=== PATIENT | male | born 1955 | race Caucasian/White ===

== ENCOUNTER → 2020-11-08 | Outpatient (CLI) | payer BC ==
--- NOTE | 2020-11-08 14:49 | CT ---
EXAMINATION TYPE: CT angio abd aorta w/Runoff DATE OF EXAM: 11/08/2020 COMPARISON: None. HISTORY: Thoracic aortic aneurysm, without rupture. History of peripheral arterial disease. Pain. CT DLP: 1663.4 mGycm, Automated Exposure Control for Dose Reduction was Utilized. CONTRAST: CT scan of the abdomen and pelvis with lower extremity runoff is performed without oral and without a nd with IV Contrast, patient injected with 125 mL of Isovue 370. Aneurysm protocol with 3-D reconstru ction images created on an independent workstation and reviewed. FINDINGS: Vascular: Patent celiac artery and SMA. Patent bilateral single renal arteries. Patent MARYANNE. Mild calc ified plaque in the abdominal aorta extends into common iliac artery branches. No significant stenosi s. No aneurysm. Satisfactory branching into internal and external iliac arteries. No significant plaq ue or stenosis in the external iliac arteries bilaterally. Mild calcified plaque left common femoral artery. Satisfactory branching. Superficial femoral arteries bilaterally show no significant plaque o r stenosis. Popliteal arteries bilaterally show mild calcified plaque near and above the knee joint, proximal to mid segment. No significant stenosis bilaterally. Satisfactory bifurcation and subsequent trifurcation, diminished contrast bolus suspected near bifurcation and trifurcation. Evaluation dist al to the proximal tibia and fibula bilaterally is suboptimal. There is a mild to moderate plaque mid to distal legs with satisfactory three-vessel flow mid leg level and two-vessel flow distal leg leve l. There is good two-vessel flow through the ankle joints. No linear hypodensity to suggest dissection in aorta or iliac branch vessels. LUNG BASES: Cardiomegaly is partially imaged. There is calcification at the level of the mitral valve .. LIVER/GB: There is 1.1 cm round dependent hyperdense gallstone with central round calcification. PANCREAS: No significant abnormality is seen. SPLEEN: No significant abnormality is seen. ADRENALS: No significant abnormality is seen. KIDNEYS: There is large exophytic 8.0 cm thin-walled cyst from the lateral aspect of the upper pole r ight kidney. Signal 2 mm nonobstructing calculus upper pole level left kidney coronal image 56 series 9. No hydronephrosis seen bilaterally. BOWEL: Suboptimal evaluation of bowel without enteric contrast. Diverticula in the left and sigmoid c olon. No CT evidence for acute diverticulitis. No suspicious small or large bowel dilatation. Mild to moderate amount of fecal material in the right colon. Normal-appearing appendix from cecum. PROSTATE/SEMINAL VESICLES: Mildly enlarged prostate consistent with BPH. Correlate clinically. LYMPH NODES: No greater than 1cm abdominal or pelvic lymph nodes are appreciated. OSSEOUS STRUCTURES: Moderate to severe disc space narrowing L4-L5 level.. OTHER: No significant additional abnormality is seen. Extremities: No significant abnormality is seen. IMPRESSION: No significant focal plaque or stenosis in the aortoiliac system bilaterally or lower ext remity runoff through the hindfoot structures.
== END | disposition home or self-care (01) ==
LOC: RADCTMAIN 11:06
PROVIDERS: ATTEND Internal Medicine Interventional Cardiology
DX: I71.2 Thoracic aortic aneurysm, without rupture (principal)
CPT/HCPCS: 75635; Q9967

== ENCOUNTER 2021-03-29 21:22 | Emergency (ER) | payer BC ==
[2021-03-29 21:43] VITALS: BP 162/75; PULSE 64; RESP 20; TEMP 98.7
--- NOTE | 2021-03-29 22:03 | ED ---
Chest Pain HPI - General Chief Complaint: Chest Pain Stated Complaint: chest pain/pressure,hand tingling Time Seen by Provider: 03/29/21 21:44 Source: patient, RN notes reviewed, old records reviewed Mode of arrival: wheelchair Limitations: no limitations - History of Present Illness Initial Comments: This is a 65-year-old male DF for evaluation patient presents today for evaluation regards to multiple complaints chest pain and dizziness dizziness for a month chest pain today. No current chest on arrival. Concerning aspect of the pain was effectively numbness and tingling of both of his arms. That is also since resolved. Patient is no prior history does have history of high blood pressure. No recent travel history or sick contacts. Patient is in no acute distress and again is asymptomatic MD Complaint: chest pain -: hour(s) Onset: during rest, during exertion Pain Location: substernal, left chest Pain Radiation: LUE Severity: moderate Severity scale (1-10): 3 Quality: tightness, heaviness Consistency: constant Improves With: nothing Worsens With: nothing Context: recent illness Anginal Symptoms: diaphoresis, sense of impending doom Other Symptoms: palpitations Treatments Prior to Arrival: none - Related Data Home Medications Medication Instructions Recorded Confirmed Flecainide [Tambocor] 50 mg PO Q12HR 03/29/21 03/29/21 Metoprolol Succinate [Toprol XL] 25 mg PO DAILY 03/29/21 03/29/21 Warfarin [Coumadin] 5 mg PO HS 03/29/21 03/29/21 Allergies Allergy/AdvReac Type Severity Reaction Status Date / Time No Known Allergies Allergy Verified 03/29/21 21:56 Review of Systems ROS Statement: Those systems with pertinent positive or pertinent negative responses have been documented in the HPI. ROS Other: All systems not noted in ROS Statement are negative. EKG Findings - EKG Comments: EKG Findings:: EKG shows sinus rhythm 65 NH 252 QRS 132 QTc 440 Past Medical History Past Medical History: Hypertension History of Any Multi-Drug Resistant Organisms: None Reported Additional Past Surgical History / Comment(s): heart valve repair Past Psychological History: No Psychological Hx Reported Smoking Status: Never smoker Past Alcohol Use History: None Reported Past Drug Use History: None Reported General Exam Limitations: no limitations General appearance: alert, in no apparent distress Head exam: Present: atraumatic, normocephalic, normal inspection Eye exam: Present: normal appearance, PERRL, EOMI. Absent: scleral icterus, conjunctival injection, periorbital swelling ENT exam: Present: normal exam, mucous membranes moist Neck exam: Present: normal inspection. Absent: tenderness, meningismus, lymphadenopathy Respiratory exam: Present: normal lung sounds bilaterally. Absent: respiratory distress, wheezes, rales, rhonchi, stridor Cardiovascular Exam: Present: regular rate, normal rhythm, normal heart sounds. Absent: systolic murmur, diastolic murmur, rubs, gallop, clicks GI/Abdominal exam: Present: soft, normal bowel sounds. Absent: distended, tenderness, guarding, rebound, rigid Extremities exam: Present: normal inspection, full ROM, normal capillary refill. Absent: tenderness, pedal edema, joint swelling, calf tenderness Back exam: Present: normal inspection Neurological exam: Present: alert, oriented X3, CN II-XII intact Psychiatric exam: Present: normal affect, normal mood Skin exam: Present: warm, dry, intact, normal color. Absent: rash Course Vital Signs 03/29/21 21:39 Temperature 98.7 F Pulse Rate 64 Respiratory 20 Rate Blood Pressure 162/75 O2 Sat by Pulse 98 Oximetry - Reevaluation(s) Reevaluation #1: 03/29/21 22:14 Medical records reviewed Reevaluation #2: 03/29/21 22:14 Patient has no chest pain here in the ER Spoke with patient regarding findings questions answered Patient does not further evaluation by cardiology, prefers discharged home Chest Pain MDM - MDM 65 male to the ER for evaluation. Patient is today for evaluation regards to chest pain and ataxia. This point patient can be discharged home normal CT of brain and chest x-ray. Troponin EKG and negative Disposition Clinical Impression: Chest pain, Dizziness Disposition: HOME SELF-CARE Condition: Undetermined Instructions (If sedation given, give patient instructions): Chest Pain (ED) Is patient prescribed a controlled substance at d/c from ED?: No Referrals: Ermias Gentile MD [Primary Care Provider] - 1-2 days
[2021-03-29 22:52] LABS: Basophils # (A) 0.1 k/uL (0-0.2); Basophils % (A) 1 %; Eosinophils # (A) 0.3 k/uL (0-0.7); Eosinophils % (A) 3 %; HCT 50.7 % (39.0-53.0); HGB 16.7 gm/dL (13.0-17.5); Lymphocytes # (A) 1.4 k/uL (1.0-4.8); Lymphocytes % (A) 14 %; MCH 30.1 pg (25.0-35.0); MCV 91.2 fL (80.0-100.0); Mean Platelet Volume 8.4; Monocytes # (A) 0.7 k/uL (0-1.0); Monocytes % (A) 7 %; Neutrophils # (A) 7.3 k/uL (1.3-7.7); Neutrophils % (A) 73 %; Platelet Count 196 k/uL (150-450); RBC 5.56 m/uL (4.30-5.90); RDW 13.3 % (11.5-15.5)
--- NOTE | 2021-03-30 05:04 | XR ---
EXAMINATION TYPE: XR chest 2V DATE OF EXAM: 03/29/2021 COMPARISON: NONE HISTORY: Chest tightness TECHNIQUE: 2 views FINDINGS: There is no heart failure nor confluent pneumonic infiltrate. Costophrenic angles are clear . Thoracic aorta is atheromatous. There is no pleural effusion. Bony thorax is intact. There is small linear density left midlung field. IMPRESSION: Minimal scarring or subsegmental atelectasis. Normal heart.
--- NOTE | 2021-03-30 05:04 | CT ---
EXAMINATION TYPE: CT brain wo con DATE OF EXAM: 03/29/2021 COMPARISON: None HISTORY: dizziness CT DLP: 1188.4 mGycm Automated exposure control for dose reduction was used. There is no mass effect nor midline shift. There is no sign of intracranial hemorrhage. Calvarium is intact. Ventricles have normal size. The skull base is intact. IMPRESSION: Head CT scan appears normal for age.
[2021-03-30 05:16] LABS: INR 2.4 (<1.2); Partial Thromboplastin Time 31.6 sec (22.0-30.0); Prothrombin Time 23.7 sec (9.0-12.0)
[2021-03-30 05:17] LABS: ALT 21 U/L (4-49); AST 28 U/L (17-59); African American GFR (CKD) >90 (>60 ml/min/1.73 sqM); Albumin 4.1 g/dL (3.5-5.0); Alkaline Phosphatase 80 U/L (38-126); Anion Gap 8 mmol/L; Blood Urea Nitrogen 16 mg/dL (9-20); Calcium 9.2 mg/dL (8.4-10.2); Carbon Dioxide 24 mmol/L (22-30); Chloride 108 mmol/L (98-107); Glucose 110 mg/dL (74-99); Lipase 133 U/L (23-300); Magnesium 2.1 mg/dL (1.6-2.3); Non-African American GFR(CKD) 84 (>60 ml/min/1.73 sqM); Potassium 4.3 mmol/L (3.5-5.1); Sodium 140 mmol/L (137-145); Total Bilirubin 0.5 mg/dL (0.2-1.3)
== END 2021-03-30 00:35 | disposition home or self-care (01) ==
LOC: EC 21:22
DX: R07.89 Other chest pain (principal); R42 Dizziness and giddiness; I10 Essential (primary) hypertension; Z79.01 Long term (current) use of anticoagulants; Z79.899 Other long term (current) drug therapy
CPT/HCPCS: 36415; 70450; 71046; 80053; 83690; 83735; 83880; 84484; 85025; 85610; 85730; 93005; 99285

== ENCOUNTER 2021-04-11 17:05 | Emergency (ER) | payer BC ==
[2021-04-11 18:12] VITALS: TEMP 98.8
[2021-04-11 18:40] LABS: Basophils % (A) 0 %; Eosinophils # (A) 0.2 k/uL (0-0.7); Eosinophils % (A) 2 %; HCT 48.9 % (39.0-53.0); HGB 16.4 gm/dL (13.0-17.5); Lymphocytes # (A) 1.4 k/uL (1.0-4.8); Lymphocytes % (A) 17 %; MCH 30.5 pg (25.0-35.0); MCHC 33.6 g/dL (31.0-37.0); MCV 90.9 fL (80.0-100.0); Mean Platelet Volume 8.3; Monocytes # (A) 0.6 k/uL (0-1.0); Monocytes % (A) 7 %; Neutrophils # (A) 5.9 k/uL (1.3-7.7); Neutrophils % (A) 71 %; Platelet Count 180 k/uL (150-450); RBC 5.38 m/uL (4.30-5.90); RDW 13.2 % (11.5-15.5); WBC 8.4 k/uL (3.8-10.6)
[2021-04-11 18:49] LABS: Calcium 8.9 mg/dL (8.4-10.2); Potassium 4.2 mmol/L (3.5-5.1); Total Bilirubin 0.6 mg/dL (0.2-1.3); Total Protein 6.9 g/dL (6.3-8.2)
[2021-04-11 18:54] LABS: Appearance,Urine Clear (Clear); Bilirubin,Urine Negative (Negative); Blood,Urine Negative (Negative); Color,Urine Yellow; Glucose,Urine (UA) Negative (Negative); Ketones,Urine Negative (Negative); Leukocyte Esterase,Urine Negative (Negative); Nitrite,Urine Negative (Negative); Protein,Urine Negative (Negative); Specific Gravity,Urine 1.022 (1.001-1.035)
[2021-04-11 19:46] VITALS: BP 110/89; PULSE 68; RESP 20
--- NOTE | 2021-04-11 19:46 | ED ---
Abdominal Pain HPI - General Chief Complaint: Abdominal Pain Stated Complaint: Abd pain/right side Time Seen by Provider: 04/11/21 19:13 Source: patient Mode of arrival: ambulatory Limitations: no limitations - History of Present Illness Initial Comments: 65-year-old male presents to emergency department with a chief complaint of abdominal pain. States symptoms and on for the past several months. States he is very active and believes the pain may be related to that. States the pain is located in the lower abdominal region, particularly over the right side. States the pain is worse during the day but not in the morning or at night. States it is worse with hip flexion or whenever he is driving. He denies any infectious or obstructive urinary symptoms. Denies any fevers or chills. Denies taking medications for the symptoms. Denies hematuria, hematochezia melena. Has not seen his primary care physician. - Related Data Home Medications Medication Instructions Recorded Confirmed Flecainide [Tambocor] 50 mg PO Q12HR 03/29/21 03/29/21 Metoprolol Succinate [Toprol XL] 25 mg PO DAILY 03/29/21 03/29/21 Warfarin [Coumadin] 5 mg PO HS 03/29/21 03/29/21 Allergies Allergy/AdvReac Type Severity Reaction Status Date / Time No Known Allergies Allergy Verified 03/29/21 21:56 Review of Systems ROS Statement: Those systems with pertinent positive or pertinent negative responses have been documented in the HPI. ROS Other: All systems not noted in ROS Statement are negative. Past Medical History Past Medical History: Hypertension History of Any Multi-Drug Resistant Organisms: None Reported Additional Past Surgical History / Comment(s): heart valve repair Past Psychological History: No Psychological Hx Reported Smoking Status: Never smoker Past Alcohol Use History: None Reported Past Drug Use History: None Reported General Exam Limitations: no limitations General appearance: alert, in no apparent distress Head exam: Present: atraumatic, normocephalic, normal inspection Eye exam: Present: normal appearance, PERRL, EOMI Pupils: Present: normal accommodation ENT exam: Present: normal exam, normal oropharynx, mucous membranes moist Neck exam: Present: normal inspection, full ROM. Absent: tenderness, lymphad enopathy Respiratory exam: Present: normal lung sounds bilaterally. Absent: respiratory distress, wheezes, rales Cardiovascular Exam: Present: regular rate, normal rhythm, normal heart sounds. Absent: systolic murmur GI/Abdominal exam: Present: soft, tenderness (Lower abdominal tenderness. Low right lower quadrant tenderness. Negative McBurney point tenderness). Absent: distended, guarding, rebound, rigid Extremities exam: Present: normal inspection, full ROM. Absent: tenderness Back exam: Present: normal inspection, full ROM. Absent: tenderness Neurological exam: Present: alert, oriented X3 Psychiatric exam: Present: normal affect, normal mood Skin exam: Present: warm, dry, intact, normal color Course Vital Signs 04/11/21 04/11/21 18:08 19:43 Temperature 98.8 F Pulse Rate 58 L 68 Respiratory 18 20 Rate Blood Pressure 125/71 110/89 O2 Sat by Pulse 98 68 L Oximetry Medical Decision Making - Medical Decision Making 65-year-old male presents emergency Department with a chief complaint abdominal pain. On physical examination, lower abdominal tenderness, negative McBurney point tenderness. Suspect is musculoskeletal in nature. CBC CMP and UA unremarkable. However, considering the tenderness is on the right lower quadrant. I did offer CT imaging to patient, he declined. States he would rather follow with his primary care physician first. I given contact information for local GI specialist. Return parameters were thoroughly discussed the patient was understanding and agreeable. Case discussed with - Lab Data Result diagrams: 04/11/21 18:23 04/11/21 18:23 Lab Results 04/11/21 04/11/21 04/11/21 Range/Units 18:23 18:23 18:23 WBC 8.4 (3.8-10.6) k/uL RBC 5.38 (4.30-5.90) m/uL Hgb 16.4 (13.0-17.5) gm/dL Hct 48.9 (39.0-53.0) % MCV 90.9 (80.0-100.0) fL MCH 30.5 (25.0-35.0) pg MCHC 33.6 (31.0-37.0) g/dL RDW 13.2 (11.5-15.5) % Plt Count 180 (150-450) k/uL MPV 8.3 Neutrophils % 71 % Lymphocytes % 17 % Monocytes % 7 % Eosinophils % 2 % Basophils % 0 % Neutrophils # 5.9 (1.3-7.7) k/uL Lymphocytes # 1.4 (1.0-4.8) k/uL Monocytes # 0.6 (0-1.0) k/uL Eosinophils # 0.2 (0-0.7) k/uL Basophils # 0.0 (0-0.2) k/uL Sodium 139 (137-145) mmol/L Potassium 4.2 (3.5-5.1) mmol/L Chloride 106 (98-107) mmol/L Carbon Dioxide 24 (22-30) mmol/L Anion Gap 9 mmol/L BUN 17 (9-20) mg/dL Creatinine 1.04 (0.66-1.25) mg/dL Est GFR (CKD-EPI)AfAm 88 (>60 ml/min/1.73 sqM) Est GFR (CKD-EPI)NonAf 76 (>60 ml/min/1.73 sqM) Glucose 97 (74-99) mg/dL Calcium 8.9 (8.4-10.2) mg/dL Total Bilirubin 0.6 (0.2-1.3) mg/dL AST 29 (17-59) U/L ALT 21 (4-49) U/L Alkaline Phosphatase 76 (38-126) U/L Total Protein 6.9 (6.3-8.2) g/dL Albumin 4.0 (3.5-5.0) g/dL Amylase 57 (30-110) U/L Lipase 92 (23-300) U/L Urine Color Yellow Urine Appearance Clear (Clear) Urine pH 6.0 (5.0-8.0) Ur Specific [place] 1.022 (1.001-1.035) Urine Protein Negative (Negative) Urine Glucose (UA) Negative (Negative) Urine Ketones Negative (Negative) Urine Blood Negative (Negative) Urine Nitrite Negative (Negative) Urine Bilirubin Negative (Negative) Urine Urobilinogen 2.0 (<2.0) mg/dL Ur Leukocyte Esterase Negative (Negative) Disposition Clinical Impression: Abdominal wall strain Disposition: HOME SELF-CARE Condition: Stable Instructions (If sedation given, give patient instructions): Musculoskeletal Pain (ED) Additional Instructions: Follow with the primary care physician. Return to emergency department if symptoms worsen. Is patient prescribed a controlled substance at d/c from ED?: No Referrals: Ermias Gentile MD [Primary Care Provider] - 1-2 days Comfort Uriarte MD [STAFF PHYSICIAN] - 1-2 days Time of Disposition: 19:46
== END 2021-04-11 20:13 | disposition home or self-care (01) ==
LOC: EC 17:05
DX: R10.31 Right lower quadrant pain (principal); I10 Essential (primary) hypertension
CPT/HCPCS: 36415; 80053; 81003; 82150; 83690; 85025; 99284

== ENCOUNTER 2021-10-29 18:48 | Observation (INO) | payer BC, OTHER ==
--- NOTE | 2021-10-29 19:40 | ED ---
General Adult HPI - General Chief complaint: Shortness of Breath Stated complaint: both arms numb/flushed Time Seen by Provider: 10/29/21 19:25 Source: patient, RN notes reviewed, old records reviewed Mode of arrival: ambulatory Limitations: no limitations - History of Present Illness Initial comments: This is a well-appearing 65-year-old male who presents to the emergency room with complaints of bilateral hand tingling today that resolved spontaneously. He states couple hours later it happened again while he was watching TV and this time radiated up the left arm. He states he also felt dizzy and flushed like he was going to pass out and got cold and clammy. He denies any headaches, chest pain or difficulty breathing. He did have a heart valve repair in the past and sees a configuration specialist and is currently flecainide. -: days(s) (1) Location: chest Severity scale (1-10): 0 Consistency: now resolved - Related Data Home Medications Medication Instructions Recorded Confirmed Flecainide [Tambocor] 50 mg PO BID 03/29/21 10/29/21 Metoprolol Succinate [Toprol XL] 25 mg PO DAILY 03/29/21 10/29/21 Warfarin [Coumadin] 5 mg PO SUMOTUTHFRSA 03/29/21 10/29/21 Warfarin [Coumadin] 2.5 mg PO WE 10/29/21 10/29/21 Allergies Allergy/AdvReac Type Severity Reaction Status Date / Time No Known Allergies Allergy Verified 10/29/21 21:22 Review of Systems ROS Statement: Those systems with pertinent positive or pertinent negative responses have been documented in the HPI. ROS Other: All systems not noted in ROS Statement are negative. Past Medical History Past Medical History: Hypertension History of Any Multi-Drug Resistant Organisms: None Reported Additional Past Surgical History / Comment(s): heart valve repair Past Psychological History: No Psychological Hx Reported Smoking Status: Never smoker Past Alcohol Use History: None Reported Past Drug Use History: None Reported General Exam Limitations: no limitations General appearance: alert Head exam: Present: atraumatic Eye exam: Present: normal appearance. Absent: scleral icterus, periorbital swelling, periorbital tenderness Neck exam: Present: full ROM. Absent: tenderness, meningismus Respiratory exam: Present: normal lung sounds bilaterally. Absent: chest wall tenderness, accessory muscle use Cardiovascular Exam: Present: regular rate, normal rhythm, bradycardia (58), other (Occasional PVCs) GI/Abdominal exam: Present: soft. Absent: distended, tenderness Extremities exam: Present: normal capillary refill. Absent: pedal edema Neurological exam: Present: alert, oriented X3, CN II-XII intact Expanded Patient oriented to: Present: person, place, time Speech: Present: fluid speech Motor strength exam: RUE: 5, LUE: 5, RLE: 5, LLE: 5 Eye Response: (4) open spontaneously Motor Response: (6) obeys commands Verbal Response: (5) oriented Kelly Total: 15 Psychiatric exam: Present: normal affect, normal mood Skin exam: Present: warm, dry, normal color. Absent: cyanosis, diaphoretic, petechiae Course Vital Signs 10/29/21 10/29/21 10/29/21 18:50 20:15 23:32 Temperature 98.4 F Pulse Rate 60 56 L 62 Pulse Rate [ Pulse Oximetery ] Respiratory 20 16 16 Rate Blood Pressure 153/79 147/81 121/71 Blood Pressure [Right Arm] O2 Sat by Pulse 99 97 Oximetry 10/30/21 00:10 Temperature 98.1 F Pulse Rate Pulse Rate [ 61 Pulse Oximetery ] Respiratory 16 Rate Blood Pressure Blood Pressure 138/78 [Right Arm] O2 Sat by Pulse 99 Oximetry Medical Decision Making - Medical Decision Making CBC and electrolytes are unremarkable. Urine shows trace ketones. EKG shows sinus bradycardia with a rate of 58 and troponin is negative at 0.012. Patient does take flecainide. He states he has had a dozen episodes of flushing and irregular heart beats while waiting in the emergency room, each lasting only a couple of seconds. The nurses have been unable to capture any abnormalities on EKG during cardiac monitoring. Patient states that when the episodes occur he feels a warm flush in his chest tingling in his hands and feet but it resolves within seconds. Patient will be admitted to the hospital for symptomatic arrhythmia with cardiology on consult. Patient is agreeable to this plan of care. Case discussed with Dr. Oliveros and Dr Mary. - Lab Data Result diagrams: 10/29/21 19:47 10/29/21 19:47 Lab Results 10/29/21 10/29/21 10/29/21 Range/Units 19:47 19:47 19:47 WBC 8.4 (3.8-10.6) k/uL RBC 5.19 (4.30-5.90) m/uL Hgb 16.0 (13.0-17.5) gm/dL Hct 48.5 (39.0-53.0) % MCV 93.3 (80.0-100.0) fL MCH 30.9 (25.0-35.0) pg MCHC 33.1 (31.0-37.0) g/dL RDW 13.7 (11.5-15.5) % Plt Count 167 (150-450) k/uL MPV 8.3 Neutrophils % 82 % Lymphocytes % 11 % Monocytes % 4 % Eosinophils % 1 % Basophils % 0 % Neutrophils # 7.0 (1.3-7.7) k/uL Lymphocytes # 0.9 L (1.0-4.8) k/uL Monocytes # 0.3 (0-1.0) k/uL Eosinophils # 0.1 (0-0.7) k/uL Basophils # 0.0 (0-0.2) k/uL PT 22.7 H (9.0-12.0) sec INR 2.3 H (<1.2) APTT 31.1 H (22.0-30.0) sec Sodium (137-145) mmol/L Potassium (3.5-5.1) mmol/L Chloride (98-107) mmol/L Carbon Dioxide (22-30) mmol/L Anion Gap mmol/L BUN (9-20) mg/dL Creatinine (0.66-1.25) mg/dL Est GFR (CKD-EPI)AfAm (>60 ml/min/1.73 sqM) Est GFR (CKD-EPI)NonAf (>60 ml/min/1.73 sqM) Glucose (74-99) mg/dL Calcium (8.4-10.2) mg/dL Magnesium (1.6-2.3) mg/dL Total Bilirubin (0.2-1.3) mg/dL AST (17-59) U/L ALT (4-49) U/L Alkaline Phosphatase (38-126) U/L Troponin I (0.000-0.034) ng/mL Total Protein (6.3-8.2) g/dL Albumin (3.5-5.0) g/dL Urine Color Yellow Urine Appearance Clear (Clear) Urine pH 5.5 (5.0-8.0) Ur Specific [place] 1.026 (1.001-1.035) Urine Protein Negative (Negative) Urine Glucose (UA) Negative (Negative) Urine Ketones Trace H (Negative) Urine Blood Negative (Negative) Urine Nitrite Negative (Negative) Urine Bilirubin Negative (Negative) Urine Urobilinogen <2.0 (<2.0) mg/dL Ur Leukocyte Esterase Negative (Negative) 10/29/21 10/29/21 Range/Units 19:47 19:47 WBC (3.8-10.6) k/uL RBC (4.30-5.90) m/uL Hgb (13.0-17.5) gm/dL Hct (39.0-53.0) % MCV (80.0-100.0) fL MCH (25.0-35.0) pg MCHC (31.0-37.0) g/dL RDW (11.5-15.5) % Plt Count (150-450) k/uL MPV Neutrophils % % Lymphocytes % % Monocytes % % Eosinophils % % Basophils % % Neutrophils # (1.3-7.7) k/uL Lymphocytes # (1.0-4.8) k/uL Monocytes # (0-1.0) k/uL Eosinophils # (0-0.7) k/uL Basophils # (0-0.2) k/uL PT (9.0-12.0) sec INR (<1.2) APTT (22.0-30.0) sec Sodium 137 (137-145) mmol/L Potassium 4.4 (3.5-5.1) mmol/L Chloride 104 (98-107) mmol/L Carbon Dioxide 27 (22-30) mmol/L Anion Gap 6 mmol/L BUN 16 (9-20) mg/dL Creatinine 1.03 (0.66-1.25) mg/dL Est GFR (CKD-EPI)AfAm 89 (>60 ml/min/1.73 sqM) Est GFR (CKD-EPI)NonAf 77 (>60 ml/min/1.73 sqM) Glucose 111 H (74-99) mg/dL Calcium 8.6 (8.4-10.2) mg/dL Magnesium 2.1 (1.6-2.3) mg/dL Total Bilirubin 0.8 (0.2-1.3) mg/dL AST 28 (17-59) U/L ALT 24 (4-49) U/L Alkaline Phosphatase 80 (38-126) U/L Troponin I <0.012 (0.000-0.034) ng/mL Total Protein 6.9 (6.3-8.2) g/dL Albumin 3.8 (3.5-5.0) g/dL Urine Color Urine Appearance (Clear) Urine pH (5.0-8.0) Ur Specific [place] (1.001-1.035) Urine Protein (Negative) Urine Glucose (UA) (Negative) Urine Ketones (Negative) Urine Blood (Negative) Urine Nitrite (Negative) Urine Bilirubin (Negative) Urine Urobilinogen (<2.0) mg/dL Ur Leukocyte Esterase (Negative) Disposition Clinical Impression: Heart palpitations Disposition: ADMITTED IP TO THIS [facility] Decision Date: 10/29/21 Decision Time: 21:52
[2021-10-29 20:25] LABS: Basophils % (A) 0 %; Eosinophils # (A) 0.1 k/uL (0-0.7); Eosinophils % (A) 1 %; HCT 48.5 % (39.0-53.0); Lymphocytes # (A) 0.9 k/uL (1.0-4.8); Lymphocytes % (A) 11 %; MCH 30.9 pg (25.0-35.0); MCHC 33.1 g/dL (31.0-37.0); MCV 93.3 fL (80.0-100.0); Mean Platelet Volume 8.3; Monocytes # (A) 0.3 k/uL (0-1.0); Monocytes % (A) 4 %; Neutrophils % (A) 82 %; Platelet Count 167 k/uL (150-450); RBC 5.19 m/uL (4.30-5.90); RDW 13.7 % (11.5-15.5); WBC 8.4 k/uL (3.8-10.6)
[2021-10-29 20:30] LABS: Appearance,Urine Clear (Clear); Bilirubin,Urine Negative (Negative); Blood,Urine Negative (Negative); Color,Urine Yellow; Glucose,Urine (UA) Negative (Negative); Ketones,Urine Trace (Negative); Leukocyte Esterase,Urine Negative (Negative); Nitrite,Urine Negative (Negative); PH, Urine 5.5 (5.0-8.0); Protein,Urine Negative (Negative); Specific Gravity,Urine 1.026 (1.001-1.035); Urobilinogen,Urine <2.0 mg/dL (<2.0)
[2021-10-29 20:35] LABS: Albumin 3.8 g/dL (3.5-5.0); Calcium 8.6 mg/dL (8.4-10.2); INR 2.3 (<1.2); Magnesium 2.1 mg/dL (1.6-2.3); Partial Thromboplastin Time 31.1 sec (22.0-30.0); Potassium 4.4 mmol/L (3.5-5.1); Prothrombin Time 22.7 sec (9.0-12.0); Total Bilirubin 0.8 mg/dL (0.2-1.3); Total Protein 6.9 g/dL (6.3-8.2)
--- NOTE | 2021-10-29 21:38 | XR ---
EXAMINATION TYPE: XR chest 2V DATE OF EXAM: 10/29/2021 8:23 PM COMPARISON:None 03/29/2021 TECHNIQUE: XR chest 2V Frontal and lateral views of the chest. CLINICAL INDICATION:Male, 65 years old with history of syncope; FINDINGS: Lungs/Pleura: There is flattening of the diaphragm with increased lucency of the lungs. No evidence o f pneumothorax, pleural effusion or focal consolidation. Pulmonary vascularity: Unremarkable. Heart/mediastinum: Cardiomediastinal silhouette is unremarkable. Musculoskeletal: No acute osseous pathology. IMPRESSION: 1. No acute cardiopulmonary disease process. 2. COPD changes.
[2021-10-29] MEDS ORDERED: NALOXONE 0.4 MG/ML 1 ML VIAL IV PRN (23:02)
[2021-10-29] MEDS ORDERED: ACETAMINOPHEN TAB 325 MG TAB PO PRN (23:02)
--- NOTE | 2021-10-30 02:40 | P.HPIM ---
History of Present Illness H&P Date: 10/30/21 Patient is a 65-year-old male with a PMH of hypertension, mitral valve repair (on Coumadin), history of arrhythmia (unknown type) on flecainide who presents to the emergency room with complaints of bilateral hand tingling and dizziness. The patient reports that over the past 1 week, he has noticed occasional bilateral hand tingling. He did not think much of it until earlier today when he was sitting in his home watching television when he suddenly developed palpitations followed by dizziness and feeling cold and clammy. He reports that the symptoms lasted a few seconds and resolved spontaneously. Since then, the patient reports having the same symptoms occurring every few minutes, lasting only a few seconds and time. He denied associated chest discomfort or shortness of breath. Denied nausea, vomiting, abdominal pain, diarrhea, fever, chills, cough. EKG in the emergency room revealed sinus bradycardia and first-degree heart block at 58 bpm. The patient was noted to have multiple episodes of V-tach on the telemetry. Chest x-ray revealed no acute findings. Laboratory evaluation was remarkable for INR of 2.3. Review of systems: Pertinent positives and negatives as discussed in HPI, a complete review of systems was performed and all other systems are negative. Physical examination: General: non toxic, no distress, appears at stated age, normal weight Derm: no unusual rashes/lesions no unusual ecchymoses, warm, dry Head: atraumatic, normocephalic, symmetric Eyes: EOMI, no lid lag, anicteric sclera, pupils equal round reactive to light ENT: Nose and ears atraumatic, no thrush, no pharyngeal erythema Neck: No thyromegaly, no cervical lymphadenopathy, trachea midline, supple Mouth: no lip lesion, mucus membranes moist Cardiovascular: S1S2 reg, no murmur appreciated, positive posterior tibial pulse bilateral, no edema, capillary refill less than 2 seconds Lungs: CTA bilateral, no rhonchi, no rales , no accessory muscle use Abdominal: soft, nontender to palpation, no guarding, no appreciable organomegaly, normal bowel sounds Ext: no gross muscle atrophy, muscle strength 5 out of 5 in all 4 extremities grossly, no contractures, Neuro: CN II-XI grossly intact, light touch intact all 4 extremities, finger to nose within normal limits, Psych: Alert, oriented, appropriate affect Assessment/plan Symptomatic NSVT -Cardiology consult -Cardiac monitoring -Fall precautions Chronic conditions: Hypertension, mitral valve repair -Continue with home meds DVT prophylaxis -Coumadin The patient is admitted with an anticipated less than 2 midnight stay for eval uation of V-tach CODE STATUS: Full Code Discussed with: Patient Anticipated discharge date: in am Anticipated discharge place: Home Past Medical History Past Medical History: Hypertension History of Any Multi-Drug Resistant Organisms: None Reported Additional Past Surgical History / Comment(s): heart valve repair Past Anesthesia/Blood Transfusion Reactions: No Reported Reaction Past Psychological History: No Psychological Hx Reported Smoking Status: Never smoker Past Alcohol Use History: None Reported Past Drug Use History: None Reported Medications and Allergies Home Medications Medication Instructions Recorded Confirmed Type Flecainide [Tambocor] 50 mg PO BID 03/29/21 10/29/21 History Metoprolol Succinate [Toprol XL] 25 mg PO DAILY 03/29/21 10/29/21 History Warfarin [Coumadin] 5 mg PO SUMOTUTHFRSA 03/29/21 10/29/21 History Warfarin [Coumadin] 2.5 mg PO WE 10/29/21 10/29/21 History Allergies Allergy/AdvReac Type Severity Reaction Status Date / Time No Known Allergies Allergy Verified 10/29/21 21:22 Physical Exam Vitals: Vital Signs Temp Pulse Pulse Resp BP BP Pulse Ox 10/30/21 01:20 58 L 16 10/30/21 00:10 98.1 F 61 16 138/78 99 10/29/21 23:32 62 16 121/71 97 10/29/21 20:15 56 L 16 147/81 10/29/21 18:50 98.4 F 60 20 153/79 99 Intake and Output 10/29/21 10/29/21 10/30/21 14:59 22:59 06:59 Intake Total 237 Balance 237 Intake: Oral 237 Other: Voiding Method Toilet # Voids 1 Weight 81.647 kg 81.647 kg Results CBC & Chem 7: 10/29/21 19:47 10/29/21 19:47 Labs: Abnormal Lab Results - Last 24 Hours (Table) 10/29/21 10/29/21 10/29/21 Range/Units 19:47 19:47 19:47 Lymphocytes # 0.9 L (1.0-4.8) k/uL PT 22.7 H (9.0-12.0) sec INR 2.3 H (<1.2) APTT 31.1 H (22.0-30.0) sec Glucose (74-99) mg/dL Urine Ketones Trace H (Negative) 10/29/21 Range/Units 19:47 Lymphocytes # (1.0-4.8) k/uL PT (9.0-12.0) sec INR (<1.2) APTT (22.0-30.0) sec Glucose 111 H (74-99) mg/dL Urine Ketones (Negative) Thrombosis Risk Factor Assmnt - Choose All That Apply Any of the Below Risk Factors Present?: Yes Each Risk Factor Represents 2 Points: Age 61-74 years Thrombosis Risk Factor Assessment Total Risk Factor Score: 2 Thrombosis Risk Factor Assessment Level: Low Risk
[2021-10-30 08:18] LABS: INR 2.4 (<1.2); Prothrombin Time 24.5 sec (9.0-12.0)
[2021-10-30 08:32] VITALS: BP 113/75; PULSE 52; RESP 18; TEMP 98.2
[2021-10-30 08:48] LABS: T4, Free (Free Thyroxine) 1.38 ng/dL (0.78-2.19)
[2021-10-30] MEDS ORDERED: FLECAINIDE 50 MG TAB PO SCH (09:00)
[2021-10-30] MEDS ORDERED: METOPROLOL SUCCINATE (ER) 25 MG TAB.ER.24H PO SCH (09:00)
--- NOTE | 2021-10-30 11:19 | P.DS ---
Providers Date of admission: 10/29/21 21:48 Expected date of discharge: 10/30/21 Attending physician: Kami Mary MD Consults: 10/29/21 23:03 Consult Physician Routine Consulting Provider: Kian Rivers Consult Reason/Comments: Symptomatic arrhythmia Do you want consulting provider notified?: Yes Primary care physician: [facility] Course: Patient is a 65-year-old male with a PMH of hypertension, mitral valve repair (on Coumadin), history of arrhythmia (unknown type) on flecainide who presented to the emergency room with complaints of bilateral hand tingling and dizziness. EKG in the emergency room revealed sinus bradycardia and first-degree heart block at 58 bpm. The patient was noted to have multiple episodes of V-tach on the telemetry. Chest x-ray revealed no acute findings. Laboratory evaluation was remarkable for INR of 2.3. Symptomatic NSVT -Cardiology consulted, evaluated patient, and cleared him for discharge as he was at his baseline status with no further complaints upon re-evaluation. No medication changes were made. He will f/u with PCP and cardiology. Chronic conditions: Hypertension, mitral valve repair -No changes to home meds on discharge Patient Condition at Discharge: Good Plan - Discharge Summary Discharge Rx Participant: No New Discharge Prescriptions: Continue Warfarin [Coumadin] 2.5 mg PO WE Warfarin [Coumadin] 5 mg PO SUMOTUTHFRSA Metoprolol Succinate [Toprol XL] 25 mg PO DAILY Flecainide [Tambocor] 50 mg PO BID Discharge Medication List Flecainide [Tambocor] 50 mg PO BID 03/29/21 [History] Metoprolol Succinate [Toprol XL] 25 mg PO DAILY 03/29/21 [History] Warfarin [Coumadin] 5 mg PO SUMOTUTHFRSA 03/29/21 [History] Warfarin [Coumadin] 2.5 mg PO WE 10/29/21 [History] Follow up Appointment(s)/Referral(s): Ermias Gentile MD [Primary Care Provider] - 1-2 days Discharge Disposition: HOME SELF-CARE
--- NOTE | 2021-10-30 11:57 | CONS ---
CONSULTATION Yonatan Kulkarni is a 65-year-old gentleman with a history of mitral valve repair sometime in 2004 in [place]. He also has probable paroxysmal atrial fibrillation, has been on Coumadin, metoprolol succinate and flecainide. He has no obstructive CAD. He came into the hospital with somewhat unusual symptoms of feeling tingling and felt his heart racing. When he came in he was actually in a sinus rhythm and then while he was being monitored he has had short runs of what seems to be PAT, but no clear-cut atrial fibrillation. He is well anticoagulated, with an INR of 2.3. His main complaint was bilateral tingling in his arms that resolved spontaneously, and when he was watching the TV he felt this again. He has no dizziness, lightheadedness, does not have any neurological symptoms. He is quite comfortable and there is no evidence to suggest any atrial fibrillation on reviewing the heart monitor rhythm strips. PAST MEDICAL HISTORY: 1. Status post mitral valve repair in 2004 in [place]. 2. He also probably has atrial fibrillation, although he is not sure. MEDICATIONS: Medications include flecainide 50 mg b.i.d., metoprolol succinate 25 mg daily, and Coumadin with INR of 2.3. He does not have any obstructive CAD. ALLERGIES: NONE. PHYSICAL EXAMINATION: On examination, blood pressure is 118/70, pulse rate is 52 per minute, regular. HEENT unremarkable. Fundus was not examined by me. Neck is supple. There is no JVD. I do not hear a carotid bruit. Heart exam reveals S1, S2. There is a short systolic murmur at left sternal border and apex. Lungs reveal decent air entry. Abdomen is soft, nontender. Lower extremities reveal normal pulses. No edema. Central nervous system is grossly within normal limits. EKG revealed sinus mechanism with a leftward axis and IVCD type picture. Rhythm strip revealed short runs of PAT. IMPRESSION: 1. History of mitral valve repair. 2. Probable paroxysmal atrial fibrillation, but in sinus rhythm. 3. Short runs of paroxysmal atrial tachycardia. RECOMMENDATIONS: I am recommending that we will check a thyroid level, increase activity, discharge him today, and we will do an event monitor tomorrow and office visit with Dr. Diehl, who sees him as an outpatient, in two weeks. Discussed my thoughts in detail with the patient. Thank you very much for the consult. MMODL / IJN: [id number] /
[2021-10-30] MEDS ORDERED: WARFARIN 5 MG TAB PO ONE (18:00)
[2021-10-30] MEDS ORDERED: WARFARIN 5 MG TAB PO SCH ×2 (18:00)
[2021-11-02] MEDS ORDERED: WARFARIN 5 MG TAB PO SCH (18:00)
[2021-11-02] MEDS ORDERED: WARFARIN 2.5 MG TAB PO SCH (18:00)
== END 2021-10-30 12:01 | disposition home or self-care (01) ==
LOC: EC 18:48 → 3SCARD 21:48
PROVIDERS: ADMIT Internal Medicine; ATTEND Internal Medicine
DX: I47.2 Ventricular tachycardia (principal); R00.1 Bradycardia, unspecified; R00.2 Palpitations; I47.1 Supraventricular tachycardia; I44.0 Atrioventricular block, first degree; I10 Essential (primary) hypertension; Z79.01 Long term (current) use of anticoagulants; Z79.899 Other long term (current) drug therapy; Z95.4 Presence of other heart-valve replacement; I48.0 Paroxysmal atrial fibrillation
CPT/HCPCS: 99285; 36415; 93005; 84439; 80053; 83735; 84443; 84484; 85025; 85610 ×2; 85730; 81003; 71046; G0378 ×2

== ENCOUNTER 2021-10-31 08:16 | Inpatient (IN) | payer BC, OTHER ==
[2021-10-31] MEDS ORDERED: SODIUM CHLORIDE 0.9% 500 ML 500 ML IV STA (08:35)
[2021-10-31 09:00] LABS: Basophils % (A) 0 %; Eosinophils # (A) 0.2 k/uL (0-0.7); Eosinophils % (A) 2 %; HCT 54.5 % (39.0-53.0); HGB 17.5 gm/dL (13.0-17.5); Lymphocytes # (A) 1.9 k/uL (1.0-4.8); Lymphocytes % (A) 22 %; MCH 30.2 pg (25.0-35.0); MCHC 32.1 g/dL (31.0-37.0); Monocytes # (A) 0.4 k/uL (0-1.0); Monocytes % (A) 5 %; Neutrophils % (A) 69 %; Platelet Count 160 k/uL (150-450); RDW 13.2 % (11.5-15.5); WBC 8.7 k/uL (3.8-10.6)
[2021-10-31 09:12] LABS: Albumin 3.6 g/dL (3.5-5.0); Calcium 8.3 mg/dL (8.4-10.2); INR 2.9 (<1.2); Magnesium 2.1 mg/dL (1.6-2.3); Partial Thromboplastin Time 25.9 sec (22.0-30.0); Prothrombin Time 28.7 sec (9.0-12.0); Total Bilirubin 1.6 mg/dL (0.2-1.3); Total Protein 6.7 g/dL (6.3-8.2)
--- NOTE | 2021-10-31 09:12 | ED ---
General Adult HPI - General Chief complaint: Arrhythmia/Palpitations Stated complaint: cardiac issues Time Seen by Provider: 10/31/21 08:26 Source: patient, EMS Mode of arrival: EMS Limitations: no limitations - History of Present Illness Initial comments: Dictation was produced using [employer] dictation software. please excuse any grammatical, word or spelling errors. Chief Complaint: 65-year-old male presents emergency department for palpitations and presyncope History of Present Illness: Patient is 65-year-old male who has past medical history heart valve repair. Is on Coumadin and metoprolol. Patient states he woke up this morning feeling fine. He went to take a shower when all of a sudden he felt presyncopal. He states that he felt really dizzy. States that his symptoms lasted for several minutes however resolved on its own. Since being in emergency department he feels at baseline. Patient has never been diagnosed with A. fib. He was seen in the emergency department 2 days ago was discharge yesterday. Patient has any fever, chills or night sweats. He's been feeling fine the last 24 hours. The ROS documented in this emergency department record has been reviewed and confirmed by me. Those systems with pertinent positive or negative responses have been documented in the HPI. All other systems are other negative and/or noncontributory. PHYSICAL EXAM: General Impression: Alert and oriented x3, not in acute distress HEENT: Normocephalic atraumatic, extra-ocular movements intact, pupils equal and reactive to light bilaterally, mucous membranes moist. Cardiovascular: Irregularly irregular Chest: Able to complete full sentences, no retractions, no tachypnea Abdomen: abdomen soft, non-tender, non-distended, no organomegaly Musculoskeletal: Pulses present and equal in all extremities, no peripheral edema Motor: no focal deficits noted Neurological: CN II-XII grossly intact, no focal motor or sensory deficits noted Skin: Intact with no visualized rashes Psych: Normal affect and mood ED course: 65-year-old male presents to the emergency department for palpitations and presyncope. Vital signs upon arrival are within acceptable limits. Patient is well- appearing at bedside. He denies any symptoms. EKG shows A. fib. Patient does not have a history of A. fib however he is on and accordingly she medications and beta blockers. He's not in rapid ventricular rate. Laboratory evaluation obtained. CBC remarkable. INR is 2.9. Metabolic panel is within acceptable limits. Cardiac enzyme is negative. While in the emergency department at approximately 9:30 AM he complained of pressure like sensation to his anterior chest. EKG was performed immediately after showing perhaps some mild depressions in V5 and V6. Otherwise no other dynamic changes. Patient given an aspirin. Patient will be admitted to the hospital for suture troponins and cardiology consultation. At this point patient has chest pain concerning for ACS and new-onset A. fib. [facility] Patient given an aspirin. EKG interpretation: Ventricular rate A. fib, QRS 108, QRS 132, QTc 434. No OR prolongation, no QTC prolongation, no ST or T-wave changes noted. - Related Data Home Medications Medication Instructions Recorded Confirmed Flecainide [Tambocor] 50 mg PO BID 03/29/21 10/29/21 Metoprolol Succinate [Toprol XL] 25 mg PO DAILY 03/29/21 10/29/21 Warfarin [Coumadin] 5 mg PO SUMOTUTHFRSA 03/29/21 10/29/21 Warfarin [Coumadin] 2.5 mg PO WE 10/29/21 10/29/21 Allergies Allergy/AdvReac Type Severity Reaction Status Date / Time No Known Allergies Allergy Verified 10/31/21 08:17 Review of Systems ROS Statement: Those systems with pertinent positive or pertinent negative responses have been documented in the HPI. ROS Other: All systems not noted in ROS Statement are negative. Past Medical History Past Medical History: Hypertension History of Any Multi-Drug Resistant Organisms: None Reported Additional Past Surgical History / Comment(s): heart valve repair Past Anesthesia/Blood Transfusion Reactions: No Reported Reaction Past Psychological History: No Psychological Hx Reported Smoking Status: Never smoker Past Alcohol Use History: None Reported Past Drug Use History: None Reported General Exam Limitations: no limitations Course Vital Signs 10/31/21 08:17 Temperature 98 F Pulse Rate 100 Respiratory 18 Rate Blood Pressure 120/94 O2 Sat by Pulse 100 Oximetry Medical Decision Making - Lab Data Result diagrams: 10/31/21 08:41 10/31/21 08:41 Lab Results 10/31/21 10/31/21 10/31/21 Range/Units 08:41 08:41 08:41 WBC 8.7 (3.8-10.6) k/uL RBC 5.80 (4.30-5.90) m/uL Hgb 17.5 (13.0-17.5) gm/dL Hct 54.5 H (39.0-53.0) % MCV 94.0 (80.0-100.0) fL MCH 30.2 (25.0-35.0) pg MCHC 32.1 (31.0-37.0) g/dL RDW 13.2 (11.5-15.5) % Plt Count 160 (150-450) k/uL MPV 9.0 Neutrophils % 69 % Lymphocytes % 22 % Monocytes % 5 % Eosinophils % 2 % Basophils % 0 % Neutrophils # 6.0 (1.3-7.7) k/uL Lymphocytes # 1.9 (1.0-4.8) k/uL Monocytes # 0.4 (0-1.0) k/uL Eosinophils # 0.2 (0-0.7) k/uL Basophils # 0.0 (0-0.2) k/uL PT 28.7 H (9.0-12.0) sec INR 2.9 H (<1.2) APTT 25.9 (22.0-30.0) sec Sodium 141 (137-145) mmol/L Potassium 4.4 (3.5-5.1) mmol/L Chloride 108 H (98-107) mmol/L Carbon Dioxide 25 (22-30) mmol/L Anion Gap 8 mmol/L BUN 16 (9-20) mg/dL Creatinine 1.05 (0.66-1.25) mg/dL Est GFR (CKD-EPI)AfAm 87 (>60 ml/min/1.73 sqM) Est GFR (CKD-EPI)NonAf 75 (>60 ml/min/1.73 sqM) Glucose 112 H (74-99) mg/dL Calcium 8.3 L (8.4-10.2) mg/dL Magnesium 2.1 (1.6-2.3) mg/dL Total Bilirubin 1.6 H (0.2-1.3) mg/dL AST 33 (17-59) U/L ALT 22 (4-49) U/L Alkaline Phosphatase 68 (38-126) U/L Troponin I (0.000-0.034) ng/mL Total Protein 6.7 (6.3-8.2) g/dL Albumin 3.6 (3.5-5.0) g/dL 10/31/21 Range/Units 08:41 WBC (3.8-10.6) k/uL RBC (4.30-5.90) m/uL Hgb (13.0-17.5) gm/dL Hct (39.0-53.0) % MCV (80.0-100.0) fL MCH (25.0-35.0) pg MCHC (31.0-37.0) g/dL RDW (11.5-15.5) % Plt Count (150-450) k/uL MPV Neutrophils % % Lymphocytes % % Monocytes % % Eosinophils % % Basophils % % Neutrophils # (1.3-7.7) k/uL Lymphocytes # (1.0-4.8) k/uL Monocytes # (0-1.0) k/uL Eosinophils # (0-0.7) k/uL Basophils # (0-0.2) k/uL PT (9.0-12.0) sec INR (<1.2) APTT (22.0-30.0) sec Sodium (137-145) mmol/L Potassium (3.5-5.1) mmol/L Chloride (98-107) mmol/L Carbon Dioxide (22-30) mmol/L Anion Gap mmol/L BUN (9-20) mg/dL Creatinine (0.66-1.25) mg/dL Est GFR (CKD-EPI)AfAm (>60 ml/min/1.73 sqM) Est GFR (CKD-EPI)NonAf (>60 ml/min/1.73 sqM) Glucose (74-99) mg/dL Calcium (8.4-10.2) mg/dL Magnesium (1.6-2.3) mg/dL Total Bilirubin (0.2-1.3) mg/dL AST (17-59) U/L ALT (4-49) U/L Alkaline Phosphatase (38-126) U/L Troponin I <0.012 (0.000-0.034) ng/mL Total Protein (6.3-8.2) g/dL Albumin (3.5-5.0) g/dL Disposition Clinical Impression: New onset a-fib, Chest pain Disposition: ADMITTED IP TO THIS HOSP Condition: Fair Referrals: Ermias Gentile MD [Primary Care Provider] - 1-2 days
[2021-10-31 09:26] LABS: Potassium 4.4 mmol/L (3.5-5.1)
[2021-10-31] MEDS ORDERED: ASPIRIN 81 MG PO STA (09:29)
--- NOTE | 2021-10-31 09:30 | XR ---
EXAMINATION TYPE: XR chest 2V DATE OF EXAM: 10/31/2021 COMPARISON: Chest x-ray 10/29/2021, chest x-ray 03/29/2021 HISTORY: Dysrhythmia TECHNIQUE: Frontal and lateral views of the chest are obtained. FINDINGS: There is no interval change. Suspect postop change to the level of the mitral annulus. Pat josephine density superimposed over the right lower chest shows a stable appearance and may be due to chest wall density superimposed over the chest. Cardiac mediastinal silhouette is unchanged, aorta is dens e. Linear scar is present in the left midlung. IMPRESSION: Stable exam, no acute abnormality.
[2021-10-31] MEDS ORDERED: NITROGLYCERIN SL TABS 0.4 MG TAB SUBLINGUAL PRN (09:45)
[2021-10-31] MEDS ORDERED: FLECAINIDE 50 MG TAB PO SCH ×2 (10:15→21:00)
[2021-10-31] MEDS ORDERED: NALOXONE 0.4 MG/ML 10 ML VIAL IVP PRN (10:35)
[2021-10-31] MEDS ORDERED: DILTIAZEM DRIP BOLUS FROM BAG 1 MG SOLN IV ONE (10:35)
[2021-10-31] MEDS ORDERED: DILTIAZEM 125 MG in SODIUM CHLORIDE 0.9% 100 ML IV SCH (10:45)
--- NOTE | 2021-10-31 10:55 | P.HPIM ---
<Carter Rojas - Last Filed: 10/31/21 10:36> History of Present Illness H&P Date: 10/31/21 History of Presenting Illness: Patient is a very pleasant 65-year-old male with a past medical history of hyper tension, arrhythmia of unknown type and heart valve replacement with repair on anticoagulation with Coumadin. He presented to the emergency department with a chief complaint of palpitations and dizziness/lightheadedness. Patient reports over the past week he has been experiencing episodes in which his heart felt as if it was beating very fast, he has been told in the past that he has an arrhythmia and even required defibrillation years ago secondary to rapid rate. Patient states this rapid heart rate has came and gone over the past week and reports this morning he got into a hot and steamy shower and after a few minutes began to feel very faint and dizzy accompanied by palpitations and feeling as though his heart was racing. Patient reports he managed to get himself out of the shower and dried off and then laid on the floor and called for his girlfriend. Patient denies having any headache, changes in vision or hearing, chest pain, shortness of breath, dyspnea with exertion, nausea, or experiencing any numbness/tingling/weakness/swelling in his extremities. Patient underwent resedate admission on 10/29/21 and discharged on 10/30/21 for similar complaint. In the emergency department, patient was seen and fully evaluated. EKG showing atrial fibrillation with a rapid ventricular rate of 108 bpm with periodic PVCs. Chest x-ray was negative for acute cardiopulmonary process. Labs reviewed CBC unremarkable. INR therapeutic at 2.9. CMP revealed mild hyperbilirubinemia with total bili of 1.6 otherwise no significant abnormalities with corrected calcium of 8.6. Troponin normal findings at less than 0.012. Review of systems: Pertinent positives and negatives as discussed in HPI, a complete review of systems was performed and all other systems are negative. Physical exam: Vital signs reviewed and stable. General: Nontoxic, no distress and appears stated age. Derm: Skin warm and dry, normal coloration for ethnicity. Head: Atraumatic, normocephalic and symmetric. Eyes: EOMs intact, no lid lag, and anicteric sclera Mouth: no lip lesions, mucus membranes moist Cardiovascular: Irregularly irregular rhythm and rapid rate (130's), systolic murmur, positive posterior tibial pulses bilaterally, and cap refill < 2 seconds. Lungs: Respirations even, regular, and unlabored on room air. Lungs CTA bilaterally, no rhonchi, no rales, no wheezing, and no accessory muscle usage. Abdominal: soft, nontender to palpation, no guarding, no appreciable organomegaly Ext: ROM intact. No gross muscle atrophy, no edema, no contractures Neuro: Speech clear, face symmetrical and CN II-XII grossly intact with no noted focal neuro deficits Psych: Alert and oriented to person, place, time, and situation. Appropriate and pleasant affect. Assessment and Plan of Care: Atrial fibrillation with RVR Dizziness/lightheadedness with reports of presyncopal episode -Cardiology consult -Telemetry monitoring -Trend troponins -Continue daily medication regimen with Flecainide and metoprolol -Cardizem bolus followed by infusion secondary to rate rapid ventricular rate 120s to 130s throughout assessment -Cardiac diet -Continuation of anticoagulation with Coumadin, INR currently therapeutic at 2.9. Pharmacy to dose. The patient is admitted with an anticipated less than than 2 midnight stay for evaluation of atrial fibrillation with RVR. CODE STATUS: Full code DVT prophylaxis: Coumadin, pharmacy to dose Discussed with: Patient, RN, and patient's girlfriend bedside Anticipated discharge date: Tomorrow Anticipated discharge place: Home A total of 40 minutes was spent on the care of this complex patient more than 50% of the time was spent in counseling and care coordination. Past Medical History Past Medical History: Hypertension History of Any Multi-Drug Resistant Organisms: None Reported Additional Past Surgical History / Comment(s): heart valve repair Past Anesthesia/Blood Transfusion Reactions: No Reported Reaction Past Psychological History: No Psychological Hx Reported Smoking Status: Never smoker Past Alcohol Use History: None Reported Past Drug Use History: None Reported Medications and Allergies Home Medications Medication Instructions Recorded Confirmed Type Flecainide [Tambocor] 50 mg PO BID 03/29/21 10/31/21 History Metoprolol Succinate [Toprol XL] 25 mg PO DAILY 03/29/21 10/31/21 History Warfarin [Coumadin] 5 mg PO SUMOTUTHFRSA 03/29/21 10/31/21 History Warfarin [Coumadin] 2.5 mg PO WE 10/29/21 10/31/21 History Allergies Allergy/AdvReac Type Severity Reaction Status Date / Time No Known Allergies Allergy Verified 10/31/21 09:50 Physical Exam Vitals: Vital Signs Temp Pulse Resp BP Pulse Ox 10/31/21 08:17 98 F 100 18 120/94 100 Intake and Output 10/30/21 10/31/21 10/31/21 22:59 06:59 14:59 Other: Weight 81.647 kg Results CBC & Chem 7: 10/31/21 08:41 10/31/21 08:41 Labs: Abnormal Lab Results - Last 24 Hours (Table) 10/31/21 10/31/21 10/31/21 Range/Units 08:41 08:41 08:41 Hct 54.5 H (39.0-53.0) % PT 28.7 H (9.0-12.0) sec INR 2.9 H (<1.2) Chloride 108 H (98-107) mmol/L Glucose 112 H (74-99) mg/dL Calcium 8.3 L (8.4-10.2) mg/dL Total Bilirubin 1.6 H (0.2-1.3) mg/dL <John Benoit - Last Filed: 10/31/21 18:09> History of Present Illness I reviewed the documentation as provided by the GILBERT above, who is the original author of this note. I agree with the documented assessment and plan, with the following changes: None Physical Exam Osteopathic Statement: *. No significant issues noted on an osteopathic structural exam other than those noted in the History and Physical/Consult. Vitals: Vital Signs Temp Pulse Pulse Resp BP BP Pulse Ox 10/31/21 14:45 98.5 F 60 100/67 10/31/21 14:04 61 16 104/68 97 10/31/21 13:00 56 L 16 91/67 97 10/31/21 12:40 116 H 18 100/72 96 10/31/21 12:20 122 H 18 101/72 96 10/31/21 11:40 115 H 18 104/78 96 10/31/21 11:20 121 H 18 109/72 96 10/31/21 08:17 98 F 100 18 120/94 100 Intake and Output 10/31/21 10/31/21 10/31/21 06:59 14:59 22:59 Intake Total 13.083 Balance 13.083 Intake: Intake, IV Titration 13.08 Amount Diltiazem 125 mg In 13.083 Sodium Chloride 0.9% 100 ml @ Titrate IV .Q0M [facility] Rx#:[id number] Other: Weight 81.647 kg Results CBC & Chem 7: 10/31/21 08:41 10/31/21 08:41 Labs: Abnormal Lab Results - Last 24 Hours (Table) 10/31/21 10/31/21 10/31/21 Range/Units 08:41 08:41 08:41 Hct 54.5 H (39.0-53.0) % PT 28.7 H (9.0-12.0) sec INR 2.9 H (<1.2) Chloride 108 H (98-107) mmol/L Glucose 112 H (74-99) mg/dL Calcium 8.3 L (8.4-10.2) mg/dL Total Bilirubin 1.6 H (0.2-1.3) mg/dL
--- NOTE | 2021-10-31 11:29 | P.CRDCN ---
History of Present Illness Consult date: 10/31/21 History of present illness: This is a 65-year-old gentleman with history of mitral valve repair done in 2004 in [facility] and also history of paroxysmal atrial fibrillation on Coumadin, was seen yesterday for symptoms of palpitations. Patient was in sinus rhythm by the time patient was seen and he was sent home on medical therapy. He came back again with complaints of having palpitations and also dizziness and near syncope, while he was taking shower. He was found to be any atrial flutter/fib with heart rate is in the 120s. Patient was initiated on IV Cardizem. He seemed to be relatively stable, though he had a brief episode of chest tightness. He did not have any obstructive coronary artery disease in the past. His cardiac enzymes have been negative. At this point I'm going to increase the dose of the bladder neck 200 mg by mouth twice a day and also increase the dose of the metoprolol. I will also have an EP evaluation for possible ablation. Echo cardiogram is being done. Chest x-ray did not show any findings of CHF. Further, this will depend upon the findings on the echocardiogram and also clinical course Review of Systems As per the chart Past Medical History Past Medical History: Hypertension History of Any Multi-Drug Resistant Organisms: None Reported Additional Past Surgical History / Comment(s): heart valve repair Past Anesthesia/Blood Transfusion Reactions: No Reported Reaction Past Psychological History: No Psychological Hx Reported Smoking Status: Never smoker Past Alcohol Use History: None Reported Past Drug Use History: None Reported Medications and Allergies Home Medications Medication Instructions Recorded Confirmed Type Flecainide [Tambocor] 50 mg PO BID 03/29/21 10/31/21 History Metoprolol Succinate [Toprol XL] 25 mg PO DAILY 03/29/21 10/31/21 History Warfarin [Coumadin] 5 mg PO SUMOTUTHFRSA 03/29/21 10/31/21 History Warfarin [Coumadin] 2.5 mg PO WE 10/29/21 10/31/21 History Allergies Allergy/AdvReac Type Severity Reaction Status Date / Time No Known Allergies Allergy Verified 10/31/21 09:50 Physical Exam Vitals: Vital Signs Temp Pulse Resp BP Pulse Ox 10/31/21 08:17 98 F 100 18 120/94 100 Intake and Output 10/30/21 10/31/21 10/31/21 22:59 06:59 14:59 Other: Weight 81.647 kg - Constitutional GENERAL EXAM: Patient is alert and oriented and doesn't appear to be in any acute distress HEENT: Normocephalic. Normal reaction of pupils, equal size, normal range of extraocular motion. No erythema or exudates in the throat. NECK: No masses, no nuchal rigidity. CHEST: No chest wall deformity. LUNGS: Equal air entry with no crackles or wheeze. HEART: S1 and S2 normal . Rapid irregular pulse ABDOMEN: No hepatosplenomegaly, normal bowel sounds, no guarding or rigidity. SKIN: No rashes CENTRAL NERVOUS SYSTEM: No focal deficits. EXTREMITIES: No cyanosis, clubbing or edema. Results 10/31/21 08:41 10/31/21 08:41 Cardiac Enzymes 10/31/21 10/31/21 Range/Units 08:41 08:41 AST 33 (17-59) U/L Troponin I <0.012 (0.000-0.034) ng/mL Coagulation 10/31/21 Range/Units 08:41 PT 28.7 H (9.0-12.0) sec APTT 25.9 (22.0-30.0) sec CBC 10/31/21 Range/Units 08:41 WBC 8.7 (3.8-10.6) k/uL RBC 5.80 (4.30-5.90) m/uL Hgb 17.5 (13.0-17.5) gm/dL Hct 54.5 H (39.0-53.0) % Plt Count 160 (150-450) k/uL Comprehensive Metabolic Panel 10/31/21 Range/Units 08:41 Sodium 141 (137-145) mmol/L Potassium 4.4 (3.5-5.1) mmol/L Chloride 108 H (98-107) mmol/L Carbon Dioxide 25 (22-30) mmol/L BUN 16 (9-20) mg/dL Creatinine 1.05 (0.66-1.25) mg/dL Glucose 112 H (74-99) mg/dL Calcium 8.3 L (8.4-10.2) mg/dL AST 33 (17-59) U/L ALT 22 (4-49) U/L Alkaline Phosphatase 68 (38-126) U/L Total Protein 6.7 (6.3-8.2) g/dL Albumin 3.6 (3.5-5.0) g/dL Current Medications Generic Name Dose Route Start Last Admin Trade Name Freq PRN Reason Stop Dose Admin Aspirin 325 mg 11/01/21 09:00 Aspirin 325 Mg Tab PO DAILY [facility] Flecainide Acetate 100 mg 10/31/21 21:00 Flecainide 50 Mg Tab PO BID [facility] Diltiazem HCl 125 mg/ Sodium 125 mls @ 0 mls/hr 10/31/21 10:45 Chloride IV .Q0M [facility] Protocol Titrate Metoprolol Succinate 50 mg 11/01/21 09:00 Metoprolol Succinate (Er) 50 Mg Tab.Er.24h PO DAILY [facility] Miscellaneous Information 1 each 10/31/21 10:15 Warfarin Per Pharmacy MISCELLANE DIRECTED PRN INR Naloxone HCl 0.2 mg 10/31/21 10:35 Naloxone 0.4 Mg/Ml 10 Ml Vial IVP Q2M PRN Opioid Reversal Nitroglycerin 0.4 mg 10/31/21 09:45 Nitroglycerin Sl Tabs 0.4 Mg Tab SUBLINGUAL Q5M PRN Chest Pain Warfarin Sodium 0 mg 10/31/21 18:00 Warfarin 0.5 Mg Tab PO 10/31/21 18:01 ONCE@1800 ONE Intake and Output 10/30/21 10/31/21 10/31/21 22:59 06:59 14:59 Other: Weight 81.647 kg Patient Weight 11/01/21 06:59 Weight 81.647 kg 10/31/21 08:41 10/31/21 08:41 EKG Interpretations (text) Atrial fibrillation/flutter with heart rate is 120s Assessment and Plan (1) Persistent atrial fibrillation Current Visit: Yes Status: Acute Code(s): I48.19 - OTHER PERSISTENT ATRIAL FIBRILLATION SNOMED Code(s): 074837103 (2) Near syncope Current Visit: Yes Status: Acute Code(s): R55 - SYNCOPE AND COLLAPSE SNOMED Code(s): 823043546 (3) History of mitral valve repair Current Visit: Yes Status: Acute Code(s): Z98.890 - OTHER SPECIFIED POSTPROCEDURAL STATES SNOMED Code(s): 990933848 Plan: Continue IV Cardizem. Increase the dose of the flecainide and metoprolol. He'll be evaluation for possible ablation. May consider cardioversion if patient continues to be in atrial fibrillation
--- NOTE | 2021-10-31 14:23 | P.CRDCN ---
History of Present Illness History of present illness: HISTORY OF PRESENTING ILLNESS This is a pleasant 65-year-old male past medical history significant for long- standing persistent atrial fibrillation on Coumadin, peripheral vascular disease, thoracic descending aortic aneurysm, mitral valve repair in 2004 in [place], hypertension, bicuspid aortic valve. He follows in the office with Dr. Diehl. We have been asked to see in consultation for chest pain, presyncope and atrial fibrillation. Patient presents emergency department with complaints of dizziness and lightheadedness. Patient states over the past week she's been experiencing episodes of palpitations, felt his heart was racing. He states this morning he was taking a hot shower and after a few minutes he began feeling dizzy and lightheaded. He also had symptoms of palpitations. He states he then sat down, crawled out of the shower and called his girlfriend for assistance and came to the emergency department. Patient recently presented to the emergency department on 10/29/2021 with complaints of bilateral hand tingling, palpitations and dizziness. EKG revealed sinus mechanism, on telemetry patient with short runs of paroxysmal atrial tachycardia. Troponin was negative, TSH was within normal limits. Patient was evaluated and seen by Dr. Oliver and recommended an event monitor outpatient and follow-up Dr. Diehl. DIAGNOSTICS -EKG reveals atrial fibrillation, heart rate 103, PVC -Prior EKG 10/29/2021 revealed sinus bradycardia with a first-degree AV block, heart rate 58, left axis deviation -Telemetry tracings indicate [] -Most recent echocardiogram 02/22/2021 in the office revealed an EF 53%, moderate aortic regurgitation, mild mitral regurgitation, bicuspid aortic valve, repair of mitral valve, mild aortic regurgitation, mild to moderate tricuspid regurgitation -Most recent stress test 02/22/2021 in the office revealed a fixed inferior defect, mild fixed dilatation, no evidence of stress induced ischemia. EF was 59% -Chest xray no acute cardiopulmonary process. -Laboratory reviewed, CBC unremarkable, INR 2.9, sodium 141, potassium 4.4, BUN 16, serum creatinine 1.0, magnesium 2.1, total bilirubin 1.6, troponin negative -Current home medications include Coumadin 2.5 mg Sunday, 5 mg other days of the week, metoprolol succinate 25 mg daily, flecainide 50 mg twice a day REVIEW OF SYSTEMS At the time of my exam: CONSTITUTIONAL: Denies fever or chills. CARDIOVASCULAR: Denies chest pain, shortness of breath, orthopnea, PND or palpitations. RESPIRATORY: Denies cough. GASTROINTESTINAL: Denies abdominal pain, diarrhea, constipation, nausea or vomiting. MUSCULOSKELETAL: Denies myalgias. NEUROLOGIC: Denies numbness, tingling, headacbe or weakness. ENDOCRINE: Denies fatigue, weight change, polydipsia or polyurina. GENITOURINARY: Denies burning, hematuria or urgency with micturation. HEMATOLOGIC: Denies history of anemia or bleeding. PHYSICAL EXAMINATION Vitals 120/94, heart rate 100, afebrile, oxygen saturation is 100% on room air CONSTITUTIONAL: No apparent distress. HEENT: Head is normocephalic. Pupils are equal, round. Sclerae anicteric. Mucous membranes of the mouth are moist. No JVD. No carotid bruit. CHEST EXAMINATION: Lungs are clear to auscultation. No chest wall tenderness is noted on palpation or with deep breathing. HEART EXAMINATION: Irregular rate and rhythm. S1, S2 heard. Systolic ejection murmur heard at the base and apex, diastolic murmur heard at the base ABDOMEN: Soft, nontender. Positive bowel sounds. EXTREMITIES: 2+ peripheral pulses, no lower extremity edema and no calf tenderness. SKIN: Warm, dry NEUROLOGIC EXAMINATION: Patient is awake, alert and oriented x3. ASSESSMENT Chest pain Long-standing persistent atrial fibrillation, on coumadin History of hypertension Bicuspid aortic valve History of mitral valve repair History of thoracic ascending aortic aneurysm History of peripheral vascular disease PLAN Nurse practitioner note has been reviewed by physician. Signing provider agrees with the documented findings, assessment, and plan of care. Past Medical History Past Medical History: Hypertension History of Any Multi-Drug Resistant Organisms: None Reported Additional Past Surgical History / Comment(s): heart valve repair Past Anesthesia/Blood Transfusion Reactions: No Reported Reaction Past Psychological History: No Psychological Hx Reported Smoking Status: Never smoker Past Alcohol Use History: None Reported Past Drug Use History: None Reported Medications and Allergies Home Medications Medication Instructions Recorded Confirmed Type Flecainide [Tambocor] 50 mg PO BID 03/29/21 10/31/21 History Metoprolol Succinate [Toprol XL] 25 mg PO DAILY 03/29/21 10/31/21 History Warfarin [Coumadin] 5 mg PO SUMOTUTHFRSA 03/29/21 10/31/21 History Warfarin [Coumadin] 2.5 mg PO WE 10/29/21 10/31/21 History Allergies Allergy/AdvReac Type Severity Reaction Status Date / Time No Known Allergies Allergy Verified 10/31/21 09:50 Physical Exam Vitals: Vital Signs Temp Pulse Resp BP Pulse Ox 10/31/21 08:17 98 F 100 18 120/94 100 Intake and Output 10/30/21 10/31/21 10/31/21 22:59 06:59 14:59 Other: Weight 81.647 kg Results 10/31/21 08:41 10/31/21 08:41 Cardiac Enzymes 10/31/21 10/31/21 Range/Units 08:41 08:41 AST 33 (17-59) U/L Troponin I <0.012 (0.000-0.034) ng/mL Coagulation 10/31/21 Range/Units 08:41 PT 28.7 H (9.0-12.0) sec APTT 25.9 (22.0-30.0) sec CBC 10/31/21 Range/Units 08:41 WBC 8.7 (3.8-10.6) k/uL RBC 5.80 (4.30-5.90) m/uL Hgb 17.5 (13.0-17.5) gm/dL Hct 54.5 H (39.0-53.0) % Plt Count 160 (150-450) k/uL Comprehensive Metabolic Panel 10/31/21 Range/Units 08:41 Sodium 141 (137-145) mmol/L Potassium 4.4 (3.5-5.1) mmol/L Chloride 108 H (98-107) mmol/L Carbon Dioxide 25 (22-30) mmol/L BUN 16 (9-20) mg/dL Creatinine 1.05 (0.66-1.25) mg/dL Glucose 112 H (74-99) mg/dL Calcium 8.3 L (8.4-10.2) mg/dL AST 33 (17-59) U/L ALT 22 (4-49) U/L Alkaline Phosphatase 68 (38-126) U/L Total Protein 6.7 (6.3-8.2) g/dL Albumin 3.6 (3.5-5.0) g/dL Current Medications Generic Name Dose Route Start Last Admin Trade Name Freq PRN Reason Stop Dose Admin Aspirin 325 mg 11/01/21 09:00 Aspirin 325 Mg Tab PO DAILY [facility] Flecainide Acetate 50 mg 10/31/21 21:00 Flecainide 50 Mg Tab PO BID [facility] Diltiazem HCl 125 mg/ Sodium 125 mls @ 0 mls/hr 10/31/21 10:45 Chloride IV .Q0M [facility] Protocol Titrate Metoprolol Succinate 25 mg 11/01/21 09:00 Metoprolol Succinate (Er) 25 Mg Tab.Er.24h PO DAILY [facility] Miscellaneous Information 1 each 10/31/21 10:15 Warfarin Per Pharmacy MISCELLANE DIRECTED PRN INR Naloxone HCl 0.2 mg 10/31/21 10:35 Naloxone 0.4 Mg/Ml 10 Ml Vial IVP Q2M PRN Opioid Reversal Nitroglycerin 0.4 mg 10/31/21 09:45 Nitroglycerin Sl Tabs 0.4 Mg Tab SUBLINGUAL Q5M PRN Chest Pain Warfarin Sodium 0 mg 10/31/21 18:00 Warfarin 0.5 Mg Tab PO 10/31/21 18:01 ONCE@1800 ONE Intake and Output 10/30/21 10/31/21 10/31/21 22:59 06:59 14:59 Other: Weight 81.647 kg Patient Weight 11/01/21 06:59 Weight 81.647 kg 10/31/21 08:41 10/31/21 08:41
[2021-10-31] MEDS ORDERED: METOPROLOL SUCCINATE (ER) 25 MG TAB.ER.24H PO STA (17:07)
[2021-10-31] MEDS ORDERED: WARFARIN 0.5 MG TAB PO ONE (18:00)
[2021-10-31] MEDS: FLECAINIDE 50 MG TAB PO SCH (20:03)
[2021-11-01] MEDS: METOPROLOL SUCCINATE (ER) 50 MG TAB.ER.24H PO SCH (08:19)
[2021-11-01] MEDS: FLECAINIDE 50 MG TAB PO SCH ×2 (08:20→21:11)
[2021-11-01] MEDS ORDERED: METOPROLOL SUCCINATE (ER) 25 MG TAB.ER.24H PO SCH (09:00)
[2021-11-01] MEDS ORDERED: ASPIRIN 325 MG TAB PO SCH (09:00)
[2021-11-01 09:40] LABS: HCT 53.6 % (39.0-53.0); HGB 17.1 gm/dL (13.0-17.5); MCH 30.1 pg (25.0-35.0); MCV 94.1 fL (80.0-100.0); Mean Platelet Volume 8.5; Platelet Count 210 k/uL (150-450); RDW 13.6 % (11.5-15.5); WBC 8.4 k/uL (3.8-10.6)
[2021-11-01 09:49] LABS: INR 3.3 (<1.2); Prothrombin Time 33.2 sec (9.0-12.0)
[2021-11-01 09:51] LABS: ALT 20 U/L (4-49); AST 24 U/L (17-59); African American GFR (CKD) >90 (>60 ml/min/1.73 sqM); Albumin 3.3 g/dL (3.5-5.0); Alkaline Phosphatase 66 U/L (38-126); Anion Gap 4 mmol/L; Blood Urea Nitrogen 14 mg/dL (9-20); Calcium 8.4 mg/dL (8.4-10.2); Carbon Dioxide 28 mmol/L (22-30); Chloride 107 mmol/L (98-107); Glucose 102 mg/dL (74-99); Non-African American GFR(CKD) 82 (>60 ml/min/1.73 sqM); Potassium 4.1 mmol/L (3.5-5.1); Sodium 139 mmol/L (137-145); Total Bilirubin 1.3 mg/dL (0.2-1.3); Total Protein 6.4 g/dL (6.3-8.2)
--- NOTE | 2021-11-01 10:01 | ECHOF ---
Referral Reason:atrial fibrillation, dizziness MEASUREMENTS -------- HEIGHT: 182.9 cm WEIGHT: 81.6 kg BP: 98/66 RVIDd: 3.8 cm (< 3.3) IVSd: 1.5 cm (0.6 - 1.1) LVIDd: 4.2 cm (3.9 - 5.3) LVPWd: 1.7 cm (0.6 - 1.1) IVSs: 1.8 cm LVIDs: 2.7 cm LVPWs: 2.0 cm LAESV Index (A-L): 48.41 ml/m Ao Diam: 4.5 cm (2.0 - 3.7) AV Cusp: 2.0 cm (1.5 - 2.6) MV EXCURSION: 11.820 mm (> 18.000) MV EF SLOPE: 69 mm/s (70 - 150) EPSS: 1.4 cm AV maxP.93 mmHg AV meanP.22 mmHg AR PHT: 623 ms RAP: 5.00 mmHg RVSP: 34.46 mmHg FINDINGS -------- Sinus rhythm. This was a technically adequate study. The left ventricular size is normal. There is moderate concentric left ventricular hypertrophy. O verall left ventricular systolic function is low-normal with, an EF between 50 - 55 %. Atypical sep dom wall motion The right ventricle is mild to moderately enlarged. LA is severely dilated >40 ml/m2 The right atrial size is normal. Interatrial and interventricular septum intact. There is lzyq-yk-pytcotwa aortic regurgitation. There is mild aortic stenosis present. The maximu m velocity across the aortic valve is 2.23m/s. Peak/mean gradient across the Aortic Valve is 19.93m mHg / 11.22mmHg. Adhs-hj-nyabnwpj mitral regurgitation is present. MV Repair. Mild tricuspid regurgitation present. There is no evidence of pulmonary hypertension. The right v entricular systolic pressure, as measured by Doppler, is 34.46mmHg. There is no pulmonic regurgitation present. 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 IVC Not well visulized. There is no pericardial effusion. CONCLUSIONS -------- 1. The left ventricular size is normal. 2. There is moderate concentric left ventricular hypertrophy. 3. Atypical septal wall motion 4. The right ventricle is mild to moderately enlarged. 5. LA is severely dilated >40 ml/m2 6. There is ysct-gl-avpgiqzw aortic regurgitation. 7. There is mild aortic stenosis present. 8. The maximum velocity across the aortic valve is 2.23m/s. 9. Peak/mean gradient across the Aortic Valve is 19.93mmHg / 11.22mmHg. 10. Ayuv-rk-wxiursxr mitral regurgitation is present. 11. MV Repair. 12. Mild tricuspid regurgitation present. 13. 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 [employer]: Cecily Ortega RDCS
[2021-11-01] MEDS ORDERED: WARFARIN 0.5 MG TAB PO ONE (10:30)
--- NOTE | 2021-11-01 13:47 | P.PN ---
<Mary Moe - Last Filed: 11/01/21 13:40> Subjective Progress Note Date: 10/31/21 HISTORY OF PRESENT ILLNESS: This is a pleasant 65-year-old male past medical history significant for long-standing persistent atrial fibrillation on Coumadin, peripheral vascular disease, thoracic descending aortic aneurysm, mitral valve repair in 2004 in [place], hypertension, bicuspid aortic valve. He follows in the office with Dr. Diehl. We have been asked to see in consultation for chest pain, presyncope and atrial fibrillation. Patient presents emergency department with complaints of dizziness and lightheadedness. Patient states over the past week she's been experiencing episodes of palpitati ons, felt his heart was racing. He states this morning he was taking a hot shower and after a few minutes he began feeling dizzy and lightheaded. He also had symptoms of palpitations. He states he then sat down, crawled out of the shower and called his girlfriend for assistance and came to the emergency department. Patient recently presented to the emergency department on 10/29/2021 with complaints of bilateral hand tingling, palpitations and dizziness. EKG revealed sinus mechanism, on telemetry patient with short runs of paroxysmal atrial tachycardia. Troponin was negative, TSH was within normal limits. Patient was evaluated and seen by Dr. Oliver and recommended an event monitor outpatient and follow-up Dr. Diehl. DIAGNOSTICS -EKG reveals atrial fibrillation, heart rate 103, PVC -Prior EKG 10/29/2021 revealed sinus bradycardia with a first-degree AV block, heart rate 58, left axis deviation -Most recent echocardiogram 02/22/2021 in the office revealed an EF 53%, moderate aortic regurgitation, mild mitral regurgitation, bicuspid aortic valve, repair of mitral valve, mild aortic regurgitation, mild to moderate tricuspid regurgitation -Most recent stress test 02/22/2021 in the office revealed a fixed inferior defect, mild fixed dilatation, no evidence of stress induced ischemia. EF was 59% -Chest xray no acute cardiopulmonary process. -Laboratory reviewed, CBC unremarkable, INR 2.9, sodium 141, potassium 4.4, BUN 16, serum creatinine 1.0, magnesium 2.1, total bilirubin 1.6, troponin negative -Current home medications include Coumadin 2.5 mg Sunday, 5 mg other days of the week, metoprolol succinate 25 mg daily, flecainide 50 mg twice a day 11/01/2021 Patient examined this morning at the bedside. He denies CP or SOB. Patient was on a cardizem drip yesterday and converted to SR. However he went back into afib. He is in afib with a heart rate around 110 this morning. Patient's metoprolol was increased to 50 mg daily. Echocardiogram completed revealing ejection fraction 50-55%, mild to moderate aortic regurgitation, mild aortic stenosis, dpwu-br-xraysdoj mitral regurgitation, mild tricuspid regurgitation. PHYSICAL EXAM: VITAL SIGNS: Reviewed. GENERAL: Well-developed in no acute distress. NECK: Supple. No JVD or thyromegaly LUNGS: Respirations even and unlabored. Lungs essentially clear to auscultation bilaterally. HEART: Regular rate and rhythm. S1 and S2 heard. Systolic and diastolic murmur noted. EXTREMITIES: Normal range of motion. No clubbing or cyanosis. Peripheral pulses intact. No lower extremity edema ASSESSMENT: Chest pain Paroxysmal atrial fibrillation, on coumadin History of hypertension Bicuspid aortic valve History of mitral valve repair History of thoracic ascending aortic aneurysm History of peripheral vascular disease PLAN: Continue current cardiac medications Continue telemetry monitoring Dr. Pinto spoke with patient about doing an ablation down the road as an outpatient Further recommendations pending patient course Nurse practitioner note has been reviewed by physician. Signing provider agrees with the documented findings, assessment, and plan of care. Objective - Vital Signs Vital signs: Vital Signs Temp 98 F 10/31/21 08:17 Pulse 61 10/31/21 14:04 Resp 16 10/31/21 14:04 BP 104/68 10/31/21 14:04 Pulse Ox 97 10/31/21 14:04 Intake & Output 10/30/21 10/31/21 10/31/21 18:59 06:59 18:59 Intake Total 13.083 Balance 13.083 Weight 81.647 kg Intake: Intake, IV Titration 13.083 Amount Diltiazem 125 mg In 13.083 Sodium Chloride 0.9% 100 ml @ Titrate IV .Q0M [facility] Rx#:[id number] - Labs CBC & Chem 7: 11/01/21 08:50 11/01/21 08:50 Labs: Abnormal Lab Results - Last 24 Hours (Table) 10/31/21 10/31/21 10/31/21 Range/Units 08:41 08:41 08:41 Hct 54.5 H (39.0-53.0) % PT 28.7 H (9.0-12.0) sec INR 2.9 H (<1.2) Chloride 108 H (98-107) mmol/L Glucose 112 H (74-99) mg/dL Calcium 8.3 L (8.4-10.2) mg/dL Total Bilirubin 1.6 H (0.2-1.3) mg/dL <Dwayne Pinto - Last Filed: 11/01/21 14:12> Subjective Patient interviewed and examined by me. Data reviewed. Impression and plan formulated by me and discussed with nurse practitioner Nurse practitioner transcribed note on my behalf Objective - Vital Signs Vital signs: Vital Signs Temp 98.4 F 11/01/21 00:01 Pulse 116 H 11/01/21 08:00 Resp 12 11/01/21 08:00 BP 93/67 11/01/21 04:57 Pulse Ox 97 11/01/21 09:20 Intake & Output 10/31/21 11/01/21 11/01/21 18:59 06:59 18:59 Intake Total 13.083 118 Balance 13.083 118 Weight 81.647 kg Intake: Intake, IV Titration 13.083 Amount Diltiazem 125 mg In 13.083 Sodium Chloride 0.9% 100 ml @ Titrate IV .Q0M [facility] Rx#:[id number] Oral 118 Other: # Voids 1 1 - Labs CBC & Chem 7: 11/01/21 08:50 11/01/21 08:50 Labs: Abnormal Lab Results - Last 24 Hours (Table) 11/01/21 11/01/21 11/01/21 Range/Units 08:50 08:50 08:50 Hct 53.6 H (39.0-53.0) % PT 33.2 H (9.0-12.0) sec INR 3.3 H (<1.2) Glucose 102 H (74-99) mg/dL Albumin 3.3 L (3.5-5.0) g/dL
--- NOTE | 2021-11-01 16:02 | P.PN ---
Subjective Progress Note Date: 11/01/21 Hospital course: Patient is a very pleasant 65-year-old male with a past medical history of hypertension, arrhythmia of unknown type and heart valve replacement with repair on anticoagulation with Coumadin. He presented to the emergency department with a chief complaint of palpitations and dizziness/lightheadedness. Patient reports over the past week he has been experiencing episodes in which his heart felt as if it was beating very fast, he has been told in the past that he has an arrhythmia and even required defibrillation years ago secondary to rapid rate. Patient states this rapid heart rate has came and gone over the past week and reports this morning he got into a hot and steamy shower and after a few minutes began to feel very faint and dizzy accompanied by palpitations and feeling as though his heart was racing. Patient reports he managed to get himself out of the shower and dried off and then laid on the floor and called for his girlfriend. Patient denies having any headache, changes in vision or hearing, chest pain, shortness of breath, dyspnea with exertion, nausea, or experiencing any numbness/tingling/weakness/swelling in his extremities. Patient underwent resedate admission on 10/29/21 and discharged on 10/30/21 for similar complaint. In the emergency department, patient was seen and fully evaluated. EKG showing atrial fibrillation with a rapid ventricular rate of 108 bpm with periodic PVCs. Chest x-ray was negative for acute cardiopulmonary process. Labs reviewed CBC unremarkable. INR therapeutic at 2.9. CMP revealed mild hyperbilirubinemia with total bili of 1.6 otherwise no significant abnormalities with corrected calcium of 8.6. Troponin normal findings at less than 0.012. Physical exam: Patient seen and fully evaluated at bedside this morning. Yesterday afternoon and patient converted to normal sinus rhythm and yesterday evening patient again converted back into A. fib RVR. Cardiology has increased flecainide and met oprolol. Echocardiogram completed and pending results. Patient currently reports that he continues to feel intermittent palpitations but denies having any headache, lightheadedness, dizziness, chest pain, shortness of breath, or experiencing any numbness/tingling/weakness in his extremities. INR remains therapeutic for patient at 3.3. Vital signs reviewed and stable. General: Nontoxic, no distress and appears stated age. Derm: Skin warm and dry, normal coloration for ethnicity. Head: Atraumatic, normocephalic and symmetric. Eyes: EOMs intact, no lid lag, and anicteric sclera Mouth: no lip lesions, mucus membranes moist Cardiovascular: Irregularly irregular, systolic murmur, positive posterior tibial pulses bilaterally, and cap refill < 2 seconds. Lungs: Respirations even, regular, and unlabored on room air. Lungs CTA bilaterally, no rhonchi, no rales, no wheezing, and no accessory muscle usage. Abdominal: soft, nontender to palpation, no guarding, no appreciable organomega ly Ext: ROM intact. No gross muscle atrophy, no edema, no contractures Neuro: Speech clear, face symmetrical and CN II-XII grossly intact with no noted focal neuro deficits Psych: Alert and oriented to person, place, time, and situation. Appropriate and pleasant affect. Assessment and Plan of Care: Atrial fibrillation with RVR Dizziness/lightheadedness with reports of presyncopal episode -Cardiology consulted -Telemetry monitoring -Troponins negative -Flecainide and metoprolol doses increased -Cardiac diet -Continuation of anticoagulation with Coumadin, INR currently therapeutic at 3.3 Pharmacy to dose. -Echocardiogram pending results. -TSH 1.530. CODE STATUS: Full code DVT prophylaxis: Coumadin, pharmacy to dose Discussed with: Patient, RN, and patient's girlfriend bedside Anticipated discharge date: Tomorrow Anticipated discharge place: Home A total of 40 minutes was spent on the care of this complex patient more than 50% of the time was spent in counseling and care coordination. Objective - Vital Signs Vital signs: Vital Signs Temp 98.4 F 11/01/21 00:01 Pulse 116 H 11/01/21 04:57 Resp 12 11/01/21 04:57 BP 93/67 11/01/21 04:57 Pulse Ox 96 11/01/21 04:57 Intake & Output 10/31/21 11/01/21 11/01/21 18:59 06:59 18:59 Intake Total 13.083 Balance 13.083 Weight 81.647 kg Intake: Intake, IV Titration 13.083 Amount Diltiazem 125 mg In 13.083 Sodium Chloride 0.9% 100 ml @ Titrate IV .Q0M [facility] Rx#:[id number] Other: # Voids 1 - Labs CBC & Chem 7: 03/01/22 08:50 11/01/21 08:50 Labs: Abnormal Lab Results - Last 24 Hours (Table) 10/31/21 10/31/21 Range/Units 08:41 08:41 PT 28.7 H (9.0-12.0) sec INR 2.9 H (<1.2) Chloride 108 H (98-107) mmol/L Glucose 112 H (74-99) mg/dL Calcium 8.3 L (8.4-10.2) mg/dL Total Bilirubin 1.6 H (0.2-1.3) mg/dL
[2021-11-01 16:40] LABS: Chol/HDL Ratio 5.71 Ratio; LDL Cholesterol,Calculated 127.7 mg/dL (0.0-131.0)
[2021-11-02 06:42] LABS: HCT 49.7 % (39.0-53.0); HGB 15.9 gm/dL (13.0-17.5); MCH 30.1 pg (25.0-35.0); MCHC 32.1 g/dL (31.0-37.0); MCV 93.7 fL (80.0-100.0); Mean Platelet Volume 8.2; Platelet Count 186 k/uL (150-450); RDW 13.1 % (11.5-15.5); WBC 9.2 k/uL (3.8-10.6)
[2021-11-02 06:46] LABS: INR 2.4 (<1.2); Prothrombin Time 23.8 sec (9.0-12.0)
[2021-11-02 06:51] LABS: Albumin 3.2 g/dL (3.5-5.0); Calcium 8.3 mg/dL (8.4-10.2); Potassium 3.9 mmol/L (3.5-5.1); Total Bilirubin 1.3 mg/dL (0.2-1.3); Total Protein 6.2 g/dL (6.3-8.2)
[2021-11-02] MEDS: FLECAINIDE 50 MG TAB PO SCH ×2 (08:45→20:22)
[2021-11-02] MEDS: METOPROLOL SUCCINATE (ER) 50 MG TAB.ER.24H PO SCH (08:45)
[2021-11-02] MEDS ORDERED: WARFARIN 2.5 MG TAB PO ONE (09:00)
--- NOTE | 2021-11-02 10:46 | P.PN ---
Subjective Progress Note Date: 11/02/21 Hospital course: Patient is a very pleasant 65-year-old male with a past medical history of hypertension, arrhythmia of unknown type and heart valve replacement with repair on anticoagulation with Coumadin. He presented to the emergency department with a chief complaint of palpitations and dizziness/lightheadedness. Patient reports over the past week he has been experiencing episodes in which his heart felt as if it was beating very fast, he has been told in the past that he has an arrhythmia and even required defibrillation years ago secondary to rapid rate. Patient states this rapid heart rate has came and gone over the past week and reports this morning he got into a hot and steamy shower and after a few minutes began to feel very faint and dizzy accompanied by palpitations and feeling as though his heart was racing. Patient reports he managed to get himself out of the shower and dried off and then laid on the floor and called for his girlfriend. Patient denies having any headache, changes in vision or hearing, chest pain, shortness of breath, dyspnea with exertion, nausea, or experiencing any numbness/tingling/weakness/swelling in his extremities. Patient underwent resedate admission on 10/29/21 and discharged on 10/30/21 for similar complaint. In the emergency department, patient was seen and fully evaluated. EKG showing atrial fibrillation with a rapid ventricular rate of 108 bpm with periodic PVCs. Chest x-ray was negative for acute cardiopulmonary process. Labs reviewed CBC unremarkable. INR therapeutic at 2.9. CMP revealed mild hyperbilirubinemia with total bili of 1.6 otherwise no significant abnormalities with corrected calcium of 8.6. Troponin normal findings at less than 0.012. Physical exam: Patient seen and fully evaluated at bedside this morning. He continues to be in atrial fibrillation with ventricular rate ranging from 90s to 120s at rest. Patient denies having any headache, lightheadedness, dizziness, chest pain, pa lpitations, shortness of breath, or experiencing any numbness/tingling/weakness in his extremities at the time of assessment. Cardiology evaluated planning for KAIDEN with cardioversion tomorrow if patient does not convert. Vital signs reviewed and stable. General: Nontoxic, no distress and appears stated age. Derm: Skin warm and dry, normal coloration for ethnicity. Head: Atraumatic, normocephalic and symmetric. Eyes: EOMs intact, no lid lag, and anicteric sclera Mouth: no lip lesions, mucus membranes moist Cardiovascular: Irregularly irregular, systolic murmur, positive posterior tibial pulses bilaterally, and cap refill < 2 seconds. Lungs: Respirations even, regular, and unlabored on room air. Lungs CTA bilaterally, no rhonchi, no rales, no wheezing, and no accessory muscle usage. Abdominal: soft, nontender to palpation, no guarding, no appreciable organomegaly Ext: ROM intact. No gross muscle atrophy, no edema, no contractures Neuro: Speech clear, face symmetrical and CN II-XII grossly intact with no noted focal neuro deficits Psych: Alert and oriented to person, place, time, and situation. Appropriate and pleasant affect. Assessment and Plan of Care: Atrial fibrillation with RVR Dizziness/lightheadedness with reports of presyncopal episode -Cardiology following, planning for KAIDEN with cardioversion tomorrow if rhythm does not convert. -Telemetry monitoring -Troponins negative -Patient placed back on Cardizem infusion and to continue medication regimen with flecainide 100 mg twice daily. -Cardiac diet, NPO at midnight for likely KAIDEN with cardioversion -Continuation of anticoagulation with Coumadin, INR currently therapeutic at 2.4 Pharmacy to dose. -Echocardiogram revealed EF between 50-55% with a severely dilated left atrium and a moderately enlarged right atrium, mild to moderate aortic regurgitation, mild aortic stenosis, mild to moderate mitral regurgitation, and mild tricuspid regurgitation. -TSH 1.530. CODE STATUS: Full code DVT prophylaxis: Coumadin, pharmacy to dose Discussed with: Patient, RN, and patient's girlfriend bedside Anticipated discharge date: Tomorrow Anticipated discharge place: Home A total of 40 minutes was spent on the care of this complex patient more than 50% of the time was spent in counseling and care coordination. Objective - Vital Signs Vital signs: Vital Signs Temp 97.7 F 11/02/21 08:30 Pulse 95 11/02/21 08:30 Resp 16 11/02/21 08:30 BP 115/72 11/02/21 08:30 Pulse Ox 98 11/02/21 08:30 Intake & Output 11/01/21 11/02/21 11/02/21 18:59 06:59 18:59 Intake Total 598 240 Balance 598 240 Intake: Oral 598 240 Other: Voiding Method Toilet # Voids 4 1 - Labs CBC & Chem 7: 11/02/21 06:08 11/02/21 06:08 Labs: Abnormal Lab Results - Last 24 Hours (Table) 11/01/21 11/02/21 11/02/21 Range/Units 08:50 06:08 06:08 PT 23.8 H (9.0-12.0) sec INR 2.4 H (<1.2) Calcium 8.3 L (8.4-10.2) mg/dL Total Protein 6.2 L (6.3-8.2) g/dL Albumin 3.2 L (3.5-5.0) g/dL HDL Cholesterol 31.90 L (40.00-60.00) mg/dL
[2021-11-02] MEDS: DILTIAZEM 125 MG in SODIUM CHLORIDE 0.9% 100 ML IV SCH (11:37)
--- NOTE | 2021-11-02 12:59 | P.PN ---
Subjective Progress Note Date: 11/02/21 HISTORY OF PRESENT ILLNESS: This is a pleasant 65-year-old male past medical history significant for long- standing persistent atrial fibrillation on Coumadin, peripheral vascular di sease, thoracic descending aortic aneurysm, mitral valve repair in 2004 in [place], hypertension, bicuspid aortic valve. He follows in the office with Dr. Diehl. We have been asked to see in consultation for chest pain, presyncope and atrial fibrillation. Patient presents emergency department with complaints of dizziness and lightheadedness. Patient states over the past week she's been experiencing episodes of palpitations, felt his heart was racing. He states this morning he was taking a hot shower and after a few minutes he began feeling dizzy and lightheaded. He also had symptoms of palpitations. He states he then sat down, crawled out of the shower and called his girlfriend for assistance and came to the emergency department. Patient recently presented to the emergency department on 10/29/2021 with complaints of bilateral hand tingling, palpitations and dizziness. EKG revealed sinus mechanism, on telemetry patient with short runs of paroxysmal atrial tachycardia. Troponin was negative, TSH was within normal limits. Patient was evaluated and seen by Dr. Oliver and recommended an event monitor outpatient and follow-up Dr. Diehl. DIAGNOSTICS -EKG reveals atrial fibrillation, heart rate 103, PVC -Prior EKG 10/29/2021 revealed sinus bradycardia with a first-degree AV block, heart rate 58, left axis deviation -Most recent echocardiogram 02/22/2021 in the office revealed an EF 53%, moderate aortic regurgitation, mild mitral regurgitation, bicuspid aortic valve, repair of mitral valve, mild aortic regurgitation, mild to moderate tricuspid regurgitation -Most recent stress test 02/22/2021 in the office revealed a fixed inferior defect, mild fixed dilatation, no evidence of stress induced ischemia. EF was 59% -Chest xray no acute cardiopulmonary process. -Laboratory reviewed, CBC unremarkable, INR 2.9, sodium 141, potassium 4.4, BUN 16, serum creatinine 1.0, magnesium 2.1, total bilirubin 1.6, troponin negative -Current home medications include Coumadin 2.5 mg Sunday, 5 mg other days of the week, metoprolol succinate 25 mg daily, flecainide 50 mg twice a day 11/01/2021 Patient examined this morning at the bedside. He denies CP or SOB. Patient was on a cardizem drip yesterday and converted to SR. However he went back into afib. He is in afib with a heart rate around 110 this morning. Patient's metoprolol was increased to 50 mg daily. Echocardiogram completed revealing ejection fraction 50-55%, mild to moderate aortic regurgitation, mild aortic stenosis, [id number] mitral regurgitation, mild tricuspid regurgitation. 11/02/2021 Patient examined this morning at the bedside. Patient denies chest pain or pressure. He denies shortness of breath. Patient is currently in atrial fibrillation with a heart rate around 105. Blood pressure is on the low side of normal with a systolic in the 90s. PHYSICAL EXAM: VITAL SIGNS: Reviewed. GENERAL: Well-developed in no acute distress. NECK: Supple. No JVD or thyromegaly LUNGS: Respirations even and unlabored. Lungs essentially clear to auscultation bilaterally. HEART: Irregular rate and rhythm. S1 and S2 heard. Systolic and diastolic murmur noted. EXTREMITIES: Normal range of motion. No clubbing or cyanosis. Peripheral pulses intact. No lower extremity edema ASSESSMENT: Chest pain Paroxysmal atrial fibrillation, on coumadin History of hypertension Bicuspid aortic valve History of mitral valve repair History of thoracic ascending aortic aneurysm History of peripheral vascular disease PLAN: Continue current cardiac medications Continue telemetry monitoring Continue metoprolol and flecainide Begin IV Cardizem drip at 5 mg an hour with no bolus Patient tentatively scheduled for KAIDEN and cardioversion tomorrow at [address] Diehl Further recommendations pending patient course Nurse practitioner note has been reviewed by physician. Signing provider agrees with the documented findings, assessment, and plan of care. Objective - Vital Signs Vital signs: Vital Signs Temp 97.7 F 11/02/21 08:30 Pulse 94 11/02/21 12:40 Resp 16 11/02/21 08:30 BP 93/61 11/02/21 12:40 Pulse Ox 99 11/02/21 09:00 Intake & Output 11/01/21 11/02/21 11/02/21 18:59 06:59 18:59 Intake Total 598 240 Balance 598 240 Intake: Oral 598 240 Other: Voiding Method Toilet # Voids 4 1 - Labs CBC & Chem 7: 11/02/21 06:08 11/02/21 06:08 Labs: Abnormal Lab Results - Last 24 Hours (Table) 11/01/21 11/02/21 11/02/21 Range/Units 08:50 06:08 06:08 PT 23.8 H (9.0-12.0) sec INR 2.4 H (<1.2) Calcium 8.3 L (8.4-10.2) mg/dL Total Protein 6.2 L (6.3-8.2) g/dL Albumin 3.2 L (3.5-5.0) g/dL HDL Cholesterol 31.90 L (40.00-60.00) mg/dL
[2021-11-03 07:09] LABS: INR 2.2 (<1.2)
[2021-11-03] MEDS: FLECAINIDE 50 MG TAB PO SCH (08:44)
[2021-11-03] MEDS: DILTIAZEM 125 MG in SODIUM CHLORIDE 0.9% 100 ML IV SCH (08:44)
[2021-11-03] MEDS ORDERED: WARFARIN 2 MG TAB PO ONE (09:00)
[2021-11-03] MEDS ORDERED: SODIUM CHLORIDE 0.9% 1,000 ML IV ONE (09:20)
--- NOTE | 2021-11-03 09:23 | P.PN ---
<Carter Rojas - Last Filed: 11/03/21 09:16> Subjective Progress Note Date: 11/03/21 Hospital course: Patient is a very pleasant 65-year-old male with a past medical history of hypertension, arrhythmia of unknown type and heart valve replacement with repair on anticoagulation with Coumadin. He presented to the emergency department with a chief complaint of palpitations and dizziness/lightheadedness. Patient reports over the past week he has been experiencing episodes in which his heart felt as if it was beating very fast, he has been told in the past that he has an arrhythmia and even required defibrillation years ago secondary to rapid rate. Patient states this rapid heart rate has came and gone over the past week and reports this morning he got into a hot and steamy shower and after a few minutes began to feel very faint and dizzy accompanied by palpitations and feeling as though his heart was racing. Patient reports he managed to get himself out of the shower and dried off and then laid on the floor and called for his girlfriend. Patient denies having any headache, changes in vision or hearing, chest pain, shortness of breath, dyspnea with exertion, nausea, or experiencing any numbness/tingling/weakness/swelling in his extremities. Patient underwent resedate admission on 10/29/21 and discharged on 10/30/21 for similar complaint. In the emergency department, patient was seen and fully evaluated. EKG showing atrial fibrillation with a rapid ventricular rate of 108 bpm with periodic PVCs. Chest x-ray was negative for acute cardiopulmonary process. Labs reviewed CBC unremarkable. INR therapeutic at 2.9. CMP revealed mild hyperbilirubinemia with total bili of 1.6 otherwise no significant abnormalities with corrected calcium of 8.6. Troponin normal findings at less than 0.012. Physical exam: Patient seen and fully evaluated at bedside this morning. He continues to be in atrial fibrillation with ventricular rate ranging from 80s to 110s at rest. He is currently preparing to go down for KAIDEN with cardioversion. Patient reports feeling slight anxiety over procedure and states he continues to feel palpitations but otherwise denies having any complaints including headache, lightheadedness, dizziness, chest pain, shortness of breath, or experiencing any numbness/tingling/weakness in his extremities. INR remains therapeutic at 2.2 this morning. Vital signs reviewed and stable. General: Nontoxic, no distress and appears stated age. Derm: Skin warm and dry, normal coloration for ethnicity. Head: Atraumatic, normocephalic and symmetric. Eyes: EOMs intact, no lid lag, and anicteric sclera Mouth: no lip lesions, mucus membranes moist Cardiovascular: Irregularly irregular, systolic murmur, positive posterior tibial pulses bilaterally, and cap refill < 2 seconds. Lungs: Respirations even, regular, and unlabored on room air. Lungs CTA bilater ally, no rhonchi, no rales, no wheezing, and no accessory muscle usage. Abdominal: soft, nontender to palpation, no guarding, no appreciable organomegaly Ext: ROM intact. No gross muscle atrophy, no edema, no contractures Neuro: Speech clear, face symmetrical and CN II-XII grossly intact with no noted focal neuro deficits Psych: Alert and oriented to person, place, time, and situation. Appropriate and pleasant affect. Assessment and Plan of Care: Atrial fibrillation with RVR Dizziness/lightheadedness with reports of presyncopal episode -Cardiology following, pt going down for KAIDEN with cardioversion this morning. -Telemetry monitoring -Troponins negative -Continue medication regimen with flecainide 100 mg twice daily. -May resume Cardiac diet once return from ablation -Continuation of anticoagulation with Coumadin, INR currently therapeutic at 2.2 Pharmacy to dose. -Echocardiogram revealed EF between 50-55% with a severely dilated left atrium and a moderately enlarged right atrium, mild to moderate aortic regurgitation, mild aortic stenosis, mild to moderate mitral regurgitation, and mild tricuspid regurgitation. -TSH 1.530. CODE STATUS: Full code DVT prophylaxis: Coumadin, pharmacy to dose Discussed with: Patient and RN Anticipated discharge date: Tomorrow Anticipated discharge place: Home A total of 30 minutes was spent on the care of this complex patient more than 50% of the time was spent in counseling and care coordination. Objective - Vital Signs Vital signs: Vital Signs Temp 97.6 F 11/03/21 07:50 Pulse 110 H 11/03/21 07:50 Resp 16 11/03/21 07:50 BP 99/70 11/03/21 07:50 Pulse Ox 96 11/03/21 08:06 Intake & Output 11/02/21 11/03/21 11/03/21 18:59 06:59 18:59 Intake Total 490.667 10 Balance 490.667 10 Intake: IV 10 0.9 10 Intake, IV Titration 10.667 Amount Diltiazem 125 mg In 10.667 Sodium Chloride 0.9% 100 ml @ 5 MG/HR 5 mls/hr IV .Q24H [facility] Rx#:[id number] Oral 480 Other: Voiding Method Toilet Toilet # Voids 2 1 - Labs CBC & Chem 7: 11/02/21 06:08 11/02/21 06:08 Labs: Abnormal Lab Results - Last 24 Hours (Table) 11/03/21 Range/Units 06:33 PT 22.0 H (9.0-12.0) sec INR 2.2 H (<1.2) <John Benoit - Last Filed: 11/03/21 17:19> Subjective I reviewed the documentation as provided by the GILBERT above, who is the original author of this note. I agree with the documented assessment and plan, with the following changes: None Objective - Vital Signs Vital signs: Vital Signs Temp 98.1 F 11/03/21 16:00 Pulse 61 11/03/21 16:00 Resp 16 11/03/21 16:00 BP 101/71 11/03/21 16:00 Pulse Ox 95 11/03/21 16:00 Intake & Output 11/02/21 11/03/21 11/03/21 18:59 06:59 18:59 Intake Total 490.667 10 660 Balance 490.667 10 660 Weight 81.647 kg Intake: IV 10 0.9 10 Intake, IV Titration 10.667 Amount Diltiazem 125 mg In 10.667 Sodium Chloride 0.9% 100 ml @ 5 MG/HR 5 mls/hr IV .Q24H [facility] Rx#:[id number] Oral 480 660 Other: Voiding Method Toilet Toilet Toilet # Voids 2 1 1 - Labs CBC & Chem 7: 11/02/21 06:08 11/02/21 06:08 Labs: Abnormal Lab Results - Last 24 Hours (Table) 11/03/21 Range/Units 06:33 PT 22.0 H (9.0-12.0) sec INR 2.2 H (<1.2)
[2021-11-03] MEDS ORDERED: PROPOFOL 10 MG/ML 20 ML VIAL IV ONE (09:30)
[2021-11-03] MEDS ORDERED: PHENYLEPHRINE-0.9% NACL SYG 1,000 MCG/10 ML SYRINGE ONE (09:30)
[2021-11-03] MEDS ORDERED: MIDAZOLAM 2 MG/2 ML VIAL ONE (09:30)
[2021-11-03] MEDS ORDERED: fentaNYL (PF) 50 MCG/ML 2 ML AMP ONE (09:30)
--- NOTE | 2021-11-03 09:57 | P.PCN ---
Date of Procedure: 11/03/21 Description of Procedure: Indication: Atrial fibrillation Procedure Description: After explaining the procedure to the patient, it's risk and complications, blood pressure, heart rate and O2 saturation were monitored. The throat was sprayed with Cetacaine. Patient received sedation per anesthesia department. The probe was introduced into the esophagus without difficulty. Images were obtained. Following that, the probe was removed. There was no immediate complication. Findings: Left atrial size is dilated measuring over 5 cm, left atrial appendage is normal. Left ventricle size is normal with mild global hypokinesis estimated at 50%. Mitral valve repair was noted, the aortic valve is calcified with preserved opening, tricuspid valve is normal. Descending thoracic aorta appears to be normal. Ascending aorta is dilated measuring 5.1 cm at the root. No pericardial effusion was noted. Contrast bubble study revealed no evidence of shunting across the intra-atrial septum. Doppler: Mild mitral regurgitation with moderate aortic regurgitation and mild tricuspid regurgitation. There was no shunting by color Doppler study. Conclusion: 1. Dilated left atrium with normal appearance of the left atrial appendage 2. Normal in size with an ejection fraction of 50% 3. Evidence of mitral valve repair with mild mitral regurgitation 4. And aortic sclerosis with moderate aortic regurgitation and dilatation of the ascending aorta 5. Mild tricuspid regurgitation
--- NOTE | 2021-11-03 09:58 | P.PCN ---
Date of Procedure: 11/03/21 Description of Procedure: Cardioversion: After explaining the procedure the patient as well as the risks and the complications. After performing transesophageal echocardiogram and depending sedated state per anesthesia department a synchronized biphasic 100 J cardioversion was performed with lutheran of sinus mechanism. About 3 minutes after the patient converted back to atrial fibrillation. There was no immediate complications. The patient will be evaluated for atrial fibrillation ablation.
[2021-11-03] MEDS ORDERED: SODIUM CHLORIDE 0.9% 1,000 ML IV SCH (10:00)
[2021-11-03] MEDS: METOPROLOL TARTRATE 25 MG TAB PO SCH ×2 (12:08→20:18)
[2021-11-04 06:57] LABS: HCT 47.7 % (39.0-53.0); HGB 15.5 gm/dL (13.0-17.5); MCH 30.5 pg (25.0-35.0); MCHC 32.6 g/dL (31.0-37.0); MCV 93.7 fL (80.0-100.0); Mean Platelet Volume 8.5; Platelet Count 209 k/uL (150-450); RBC 5.09 m/uL (4.30-5.90); RDW 13.1 % (11.5-15.5); WBC 8.4 k/uL (3.8-10.6)
[2021-11-04 07:03] LABS: Albumin 3.1 g/dL (3.5-5.0); Calcium 8.2 mg/dL (8.4-10.2); Magnesium 2.1 mg/dL (1.6-2.3); Total Bilirubin 1.2 mg/dL (0.2-1.3)
[2021-11-04 07:05] LABS: INR 2.4 (<1.2); Prothrombin Time 24.2 sec (9.0-12.0)
[2021-11-04] MEDS ORDERED: WARFARIN 2 MG TAB PO ONE (09:00)
[2021-11-04] MEDS: METOPROLOL TARTRATE 25 MG TAB PO SCH ×2 (10:02→20:26)
[2021-11-04] MEDS: DRONEDARONE 400 MG TAB PO SCH ×2 (10:02→18:06)
--- NOTE | 2021-11-04 10:08 | CT ---
EXAMINATION TYPE: CT angio chest DATE OF EXAM: 11/04/2021 COMPARISON: X-ray dated 10/31/2021 HISTORY: Evaluation of known AAA. History of mitral valve repair and Afib. CT DLP: 879.9 mGy.cm. Automated Exposure Control for Dose Reduction was Utilized. TECHNIQUE AND CONTRAST: CTA scan of the thorax is performed without and with IV Contrast, patient injected with 100 mL of Iso greg 370, thoracic aortic angiogram protocol. MIP Images are created on CT scanner and reviewed. FINDINGS: Cardiomegaly with markedly dilated left atrium, please correlate with echocardiographic results. Aort ic valve and coronary arterial calcifications are noted. Aortic measurements as follows: -The aortic annulus measures 3.6 cm. -The sinus of Valsalva measures up to 5.6 cm. -The ST junction measures up to 4.9 cm. -The proximal portion of the ascending aorta measures 4.8 cm. -The ascending aorta measures 4.6 cm at the level of pulmonary artery. -The proximal portion of the aortic arch measures 3.8 cm. -The proximal portion of the descending thoracic aorta measures 2.9 cm. -The inferior aspect of the thoracic descending aorta measures 3.1 cm. -The upper abdominal aorta measures 0.6 cm. Tiny millimetric calcifications, fibrotic changes and scarring are seen at the anterior aspect of the right lung base. Minimal fibrotic changes are seen in the lung bases, with scattered minimal atelect asis. Unremarkable lungs otherwise. Patent central airways. No pleural or pericardial effusion. No ma simi or central pulmonary emboli. 10 mm subcarinal lymph node with scattered subcentimeter bilateral hilar and mediastinal lymph nodes. Cholelithiasis without evidence of acute cholecystitis. Left hepatic lobe 13 mm cyst. Large right up per pole renal cyst measuring up to 9 cm, not completely included in the scan. No aggressive bone les ion. IMPRESSION: Ascending aortic aneurysm with dilated aortic root as detailed above. Cardiomegaly. Please correlate with echocardiographic results. Recommend cardiothoracic surgery consultation if not already performe d. Other incidental findings as detailed above.
--- NOTE | 2021-11-04 10:44 | P.PN ---
<Carter Rojas - Last Filed: 11/04/21 10:39> Subjective Progress Note Date: 11/04/21 Hospital course: Patient is a very pleasant 65-year-old male with a past medical history of hy pertension, arrhythmia of unknown type and heart valve replacement with repair on anticoagulation with Coumadin. He presented to the emergency department with a chief complaint of palpitations and dizziness/lightheadedness. Patient reports over the past week he has been experiencing episodes in which his heart felt as if it was beating very fast, he has been told in the past that he has an arrhythmia and even required defibrillation years ago secondary to rapid rate. Patient states this rapid heart rate has came and gone over the past week and reports this morning he got into a hot and steamy shower and after a few minutes began to feel very faint and dizzy accompanied by palpitations and feeling as though his heart was racing. Patient reports he managed to get himself out of the shower and dried off and then laid on the floor and called for his girlfriend. Patient denies having any headache, changes in vision or hearing, chest pain, shortness of breath, dyspnea with exertion, nausea, or experiencing any numbness/tingling/weakness/swelling in his extremities. Patient underwent resedate admission on 10/29/21 and discharged on 10/30/21 for similar complaint. In the emergency department, patient was seen and fully evaluated. EKG showing atrial fibrillation with a rapid ventricular rate of 108 bpm with periodic PVCs. Chest x-ray was negative for acute cardiopulmonary process. Labs reviewed CBC unremarkable. INR therapeutic at 2.9. CMP revealed mild hyperbilirubinemia wit h total bili of 1.6 otherwise no significant abnormalities with corrected calcium of 8.6. Troponins negative. Echocardiogram revealed EF between 50-55% with a severely dilated left atrium and a moderately enlarged right atrium, mild to moderate aortic regurgitation, mild aortic stenosis, mild to moderate mitral regurgitation, and mild tricuspid regurgitation. Patient underwent KAIDEN with cardioversion on 11/03/21. Cardioversion converted patient back into sinus rhythm however after approximately 3 minutes the patient converted back into atrial fibrillation. Physical exam: Patient seen and fully evaluated at bedside this morning. He remains in atrial fibrillation after undergoing KAIDEN with cardioversion yesterday, however after approximately 3 minutes the patient converted back into atrial fibrillation. INR remains therapeutic at 2.4 this morning. Cardiology made some antiarrhythmic medication change as, flecainide has been discontinued and patient started on Dronedarone 400 mg with meals twice daily. Pt denies chest pain or shortness of breath. He underwent CTA chest this morning. CTA revealed ascending aortic aneurysm with dilated aortic root and cardiomegally. Vital signs reviewed and stable. General: Nontoxic, no distress and appears stated age. Derm: Skin warm and dry, normal coloration for ethnicity. Head: Atraumatic, normocephalic and symmetric. Eyes: EOMs intact, no lid lag, and anicteric sclera Mouth: no lip lesions, mucus membranes moist Cardiovascular: Irregularly irregular, systolic murmur, positive posterior tib ial pulses bilaterally, and cap refill < 2 seconds. Lungs: Respirations even, regular, and unlabored on room air. Lungs CTA bilaterally, no rhonchi, no rales, no wheezing, and no accessory muscle usage. Abdominal: soft, nontender to palpation, no guarding, no appreciable organomegaly Ext: ROM intact. No gross muscle atrophy, no edema, no contractures Neuro: Speech clear, face symmetrical and CN II-XII grossly intact with no noted focal neuro deficits Psych: Alert and oriented to person, place, time, and situation. Appropriate and pleasant affect. Assessment and Plan of Care: Atrial fibrillation with RVR Dizziness/lightheadedness with reports of presyncopal episode -Cardiology following -Telemetry monitoring -KAIDEN with cardioversion 11/03/21 unsuccessful as patient converted back into atrial fibrillation -Cardiology started patient on Dronedarone 400 mg with meals twice daily. -Cardiac diet -Continuation of anticoagulation with Coumadin, INR currently therapeuic at 2.4 Pharmacy to dose. -Echocardiogram revealed EF between 50-55% with a severely dilated left atrium and a moderately enlarged right atrium, mild to moderate aortic regurgitation, mild aortic stenosis, mild to moderate mitral regurgitation, and mild tricuspid regurgitation. -TSH 1.530. Ascending aortic aneurysm -CTA revealed ascending aortic aneurysm with dilated aortic root and cardiomega lly. -Cardiothoracic surgery consulted CODE STATUS: Full code DVT prophylaxis: Coumadin, pharmacy to dose Discussed with: Patient and RN Anticipated discharge date: Clinical course to determine Anticipated discharge place: Home A total of 35 minutes was spent on the care of this complex patient more than 50% of the time was spent in counseling and care coordination. Objective - Vital Signs Vital signs: Vital Signs Temp 98.1 F 11/04/21 08:00 Pulse 95 11/04/21 08:00 Resp 16 11/04/21 08:00 BP 98/51 11/04/21 08:00 Pulse Ox 96 11/04/21 08:00 Intake & Output 11/03/21 11/04/21 11/04/21 18:59 06:59 18:59 Intake Total 780 Balance 780 Weight 81.647 kg Intake: Oral 780 Other: Voiding Method Toilet Toilet Toilet # Voids 1 - Labs CBC & Chem 7: 11/04/21 06:15 11/04/21 06:15 Labs: Abnormal Lab Results - Last 24 Hours (Table) 11/04/21 11/04/21 Range/Units 06:15 06:15 PT 24.2 H (9.0-12.0) sec INR 2.4 H (<1.2) Calcium 8.2 L (8.4-10.2) mg/dL Total Protein 6.0 L (6.3-8.2) g/dL Albumin 3.1 L (3.5-5.0) g/dL <John Benoit - Last Filed: 11/04/21 16:02> Subjective I reviewed the documentation as provided by the GILBERT above, who is the original author of this note. I agree with the documented assessment and plan, with the following changes: None Objective - Vital Signs Vital signs: Vital Signs Temp 98.1 F 11/04/21 08:00 Pulse 101 H 11/04/21 14:00 Resp 16 11/04/21 14:00 BP 95/65 11/04/21 12:00 Pulse Ox 98 11/04/21 12:00 Intake & Output 11/03/21 11/04/21 11/04/21 18:59 06:59 18:59 Intake Total 780 130 Balance 780 130 Weight 81.647 kg Intake: Intake, IV Titration 10 Amount Sodium Chloride 0.9% 1, 10 000 ml @ 20 mls/hr IV . Q24H [facility] Rx#:[id number] Oral 780 120 Other: Voiding Method Toilet Toilet Toilet # Voids 1 - Labs CBC & Chem 7: 11/04/21 06:15 03/04/22 06:15 Labs: Abnormal Lab Results - Last 24 Hours (Table) 11/04/21 11/04/21 Range/Units 06:15 06:15 PT 24.2 H (9.0-12.0) sec INR 2.4 H (<1.2) Calcium 8.2 L (8.4-10.2) mg/dL Total Protein 6.0 L (6.3-8.2) g/dL Albumin 3.1 L (3.5-5.0) g/dL
--- NOTE | 2021-11-04 12:57 | P.GSCN ---
History of Present Illness Consult date: 11/04/21 Reason for Consult: Ascending aortic aneurysm Requesting physician: Carter Rojas History of present illness: This is a 65-year-old active gentleman who follows on an outpatient basis with Dr. Gentile for primary care and Dr. Diehl for cardiology. He has a previous medical history of hypertension, paroxysmal atrial fibrillation on Coumadin for anticoagulation, mitral regurgitation status post robotic mitral valve re placement in 2006 in [facility], known history of ascending aortic aneurysm being followed yearly, and never smoker. He presented to [facility] emergency room with complains of presyncopal episode and palpitations while in the shower. He was found to be in rapid atrial fibrillation and started on IV Cardizem. Transthoracic echocardiogram completed demonstrated EF 50-55%, mild to moderate aortic insufficiency, mild aortic stenosis, mild to moderate mitral regurgitation, mild tricuspid regurgitation with aortic root measuring 5.2 cm. He was admitted with consultation placed to cardiology. Yesterday he underwent cardioversion which was successful for a few minutes but patient did convert back into atrial fibrillation. Prior to the cardioversion he did have a KAIDEN completed demonstrating EF 50%, mild mitral regurgitation, moderate aortic insufficiency, and aortic root measurement 5.1 cm. His flecainide was discontinued and he was started on Multaq with the possibility of A. fib ablation in the near future if he doesn't convert to normal sinus rhythm. Part of his workup included a CTA of the chest to evaluate his known history of aortic aneurysm. Per the read from the radiologist the proximal portion of the ascending aorta measured 4.8 cm, ascending aorta measured 4.[address] Rhodes from cardiothoracic surgery was consulted regarding ascending aortic aneurysm Review of Systems Review of systems was completed and was negative except as noted - Cardiovascular Reports as per HPI, Reports lightheadedness, Reports palpitations Past Medical History Past Medical History: Atrial Fibrillation, Hypertension Additional Past Medical History / Comment(s): Ascending aortic aneurysm followed yearly History of Any Multi-Drug Resistant Organisms: None Reported Additional Past Surgical History / Comment(s): Robotic mitral valve replacement in 2006 in [place] Past Anesthesia/Blood Transfusion Reactions: No Reported Reaction Past Psychological History: No Psychological Hx Reported Smoking Status: Never smoker Past Alcohol Use History: None Reported Past Drug Use History: None Reported Medications and Allergies Home Medications Medication Instructions Recorded Confirmed Type Flecainide [Tambocor] 50 mg PO BID 07/27/21 02/28/22 History Metoprolol Succinate [Toprol XL] 25 mg PO DAILY 03/29/21 10/31/21 History Warfarin [Coumadin] 5 mg PO TESSATUTHSA 03/29/21 10/31/21 History Warfarin [Coumadin] 2.5 mg PO WE 10/29/21 10/31/21 History Allergies Allergy/AdvReac Type Severity Reaction Status Date / Time No Known Allergies Allergy Verified 10/31/21 09:50 Surgical - Exam Vital Signs Temp Pulse Resp BP Pulse Ox 98 F 100 18 120/94 100 10/31/21 08:17 10/31/21 08:17 10/31/21 08:17 10/31/21 08:17 10/31/21 08:17 CONSTITUTIONAL: Awake and alert, appears comfortable, cooperative, well- developed, well-nourished, no pain, no acute distress EYES: Pupils equal, round, reactive to light, normal ocular movement ENT: Moist mucous membranes without oral lesions present NECK: No masses, no bruits, trachea midline RESPIRATORY: Lungs sounds clear to auscultation bilaterally. Respirations even, nonlabored. Currently on room air with oxygen saturation 98%. Strong cough. No chest wall deformities. No clubbing or cyanosis present CARDIOVASCULAR: S1, S2 present. Irregular rate and rhythm, controlled atrial fibrillation on telemetry. Palpable peripheral pulses bilaterally. No edema present. No calf pain or tenderness noted. GASTROINTESTINAL: Abdomen soft, nontender, nondistended without masses or organomegaly noted. There is no rebound or guarding present. Active bowel sounds present 4 quadrants. GENITOURINARY: Deferred INTEGUMENTARY: Skin is warm and dry with evidence of good perfusion. NEUROLOGIC: Cranial nerves II through XII intact, normal coordination, no obvious motor or sensory deficits, speech is normal MUSKULOSKELETAL: Able to move all extremities, strength equal bilaterally, normal posture PSYCHIATRIC: Alert and oriented to person place and time, appropriate affect, intact judgment and insight Results - Labs 11/04/21 06:15 11/04/21 06:15 Abnormal Lab Results - Last 24 Hours (Table) 11/04/21 11/04/21 Range/Units 06:15 06:15 PT 24.2 H (9.0-12.0) sec INR 2.4 H (<1.2) Calcium 8.2 L (8.4-10.2) mg/dL Total Protein 6.0 L (6.3-8.2) g/dL Albumin 3.1 L (3.5-5.0) g/dL Diabetes panel 11/04/21 Range/Units 06:15 Sodium 139 (137-145) mmol/L Potassium 4.0 (3.5-5.1) mmol/L Chloride 107 (98-107) mmol/L Carbon Dioxide 28 (22-30) mmol/L BUN 16 (9-20) mg/dL Creatinine 1.02 (0.66-1.25) mg/dL Glucose 83 (74-99) mg/dL Calcium 8.2 L (8.4-10.2) mg/dL AST 24 (17-59) U/L ALT 24 (4-49) U/L Alkaline Phosphatase 71 (38-126) U/L Total Protein 6.0 L (6.3-8.2) g/dL Albumin 3.1 L (3.5-5.0) g/dL Calcium panel 11/04/21 Range/Units 06:15 Calcium 8.2 L (8.4-10.2) mg/dL Albumin 3.1 L (3.5-5.0) g/dL Pituitary panel 11/04/21 Range/Units 06:15 Sodium 139 (137-145) mmol/L Potassium 4.0 (3.5-5.1) mmol/L Chloride 107 (98-107) mmol/L Carbon Dioxide 28 (22-30) mmol/L BUN 16 (9-20) mg/dL Creatinine 1.02 (0.66-1.25) mg/dL Glucose 83 (74-99) mg/dL Calcium 8.2 L (8.4-10.2) mg/dL Adrenal panel 11/04/21 Range/Units 06:15 Sodium 139 (137-145) mmol/L Potassium 4.0 (3.5-5.1) mmol/L Chloride 107 (98-107) mmol/L Carbon Dioxide 28 (22-30) mmol/L BUN 16 (9-20) mg/dL Creatinine 1.02 (0.66-1.25) mg/dL Glucose 83 (74-99) mg/dL Calcium 8.2 L (8.4-10.2) mg/dL Total Bilirubin 1.2 (0.2-1.3) mg/dL AST 24 (17-59) U/L ALT 24 (4-49) U/L Alkaline Phosphatase 71 (38-126) U/L Total Protein 6.0 L (6.3-8.2) g/dL Albumin 3.1 L (3.5-5.0) g/dL - Imaging CT scan - chest: report reviewed, image reviewed Additional studies: Echocardiogram films reviewed with Dr. Rhodes Assessment and Plan Assessment: 1. Ascending aortic aneurysm, known history, followed yearly, last CT of the chest was completed approximately 2 years ago in [place] per the patient 2. History of mitral valve disease with mitral valve replacement in 2006 in [place] 3. Atrial fibrillation present on admission, with previous history of paroxysmal atrial fibrillation on Coumadin for anticoagulation 4. History of hypertension 5. Never smoker Plan: The patient was seen and examined at the bedside with present with Dr. Rhodes. Chart/diagnostics were reviewed. We will try to obtain medical records from [place] regarding last CT of the chest to compare measurements. At this time acute management of atrial fibrillation is the priority, will defer to cardiology management. Upon discharge patient should follow up in our office for planning for aortic surgery. Patient will need surgical workup including heart catheterization. This was discussed in detail with the patient. He was encouraged to avoid any strenuous upper body activity, keep blood pressure under tight control with beta shelley therapy. Patient states he is ready doing this as he has been told this for years. Continue medical management of other comorbidities per primary care and cardiology. Thank you for this consult. Please call us with any further questions. I have personally seen and examined the patient, performed the documentation and the assessment and plan as written. Number of minutes spent on the visit: 30. Time with Patient: Greater than 30
--- NOTE | 2021-11-04 13:12 | P.PN ---
Subjective Patient is resting comfortably in bed. He remains in atrial fibrillation, heart rates are between 8200 beats a minute Yesterday he underwent electrical cardioversion on flecainide 100 mg twice daily but he had immediate recurrence of atrial fibrillation The KAIDEN also showed a dilated aortic root of 5 cm with moderate aortic regurgitation in relation to the bicuspid aortic valve Today we started Multaq [address] of the chest showed an ascending aortic aneurysm of 4.8 cm, sinus of Valsalva 5.6 cm Aortic arch 3.8 Abdominal aorta 3.8 On examination Rhythm is regular Heart sounds soft systolic murmur Impression History of mitral valve repair many years back History of bicuspid aortic valve with moderate AI History of atrial fibrillation, recurrent with RVR Known aortic aneurysm Currently the maximum diameter is of the level of the sinus of Valsalva 5.6 cm Suggest Continue Multaq 400 mg twice daily Attempt electrical cardioversion on Sunday after loading with Multaq orally Continue anticoagulation Patient will need aortic valve and aortic root surgery in the near future Objective - Vital Signs Vital signs: Vital Signs Temp 98.1 F 11/04/21 08:00 Pulse 101 H 11/04/21 12:00 Resp 16 11/04/21 08:00 BP 95/65 11/04/21 12:00 Pulse Ox 98 11/04/21 12:00 Intake & Output 11/03/21 11/04/21 11/04/21 18:59 06:59 18:59 Intake Total 780 Balance 780 Weight 81.647 kg Intake: Oral 780 Other: Voiding Method Toilet Toilet Toilet # Voids 1 - Labs CBC & Chem 7: 11/04/21 06:15 11/04/21 06:15 Labs: Abnormal Lab Results - Last 24 Hours (Table) 11/04/21 11/04/21 Range/Units 06:15 06:15 PT 24.2 H (9.0-12.0) sec INR 2.4 H (<1.2) Calcium 8.2 L (8.4-10.2) mg/dL Total Protein 6.0 L (6.3-8.2) g/dL Albumin 3.1 L (3.5-5.0) g/dL
[2021-11-05] MEDS: DRONEDARONE 400 MG TAB PO SCH ×2 (06:27→17:18)
[2021-11-05] MEDS: METOPROLOL TARTRATE 25 MG TAB PO SCH ×2 (08:51→20:04)
[2021-11-05 09:36] LABS: INR 2.4 (<1.2); Prothrombin Time 23.9 sec (9.0-12.0)
[2021-11-05] MEDS ORDERED: WARFARIN 5 MG TAB PO ONE (10:00)
--- NOTE | 2021-11-05 14:43 | P.PN ---
Subjective Progress Note Date: 11/05/21 This is Sridhar adams NP, I'm dictating on behalf of Dr. Pinto's H&P and A&P. Patient was interviewed and examined. Patient is a pleasant 65-year-old male who initially presented to the hospital with new onset chest pain and A. fib. Patient is resting comfortably in bed, but remains in atrial fibrillation. His heart rate is better controlled today. Patient has been on Multaq 400 mg twice a day, and tolerating well. GENERAL: Well-appearing, well-nourished and in no acute distress. NECK: Supple without JVD or thyromegaly. LUNGS: Breath sounds clear to auscultation bilaterally. Respiration equal and unlabored. No wheezes, rales or rhonchi. HEART: Regular rate and rhythm without murmurs, rubs or gallops. S1 and S2 heard. EXTREMITIES: Normal range of motion, no edema. No clubbing or cyanosis. Peripheral pulses intact and strong. VITALS: Temp 97.9, pulse 61, respirations 18, blood pressure 107/69, O2 saturation 95% on room air TELEMETRY: Atrial fibrillation LABS: White count 8.4, hemoglobin 15.5, platelets 209, sodium 139, potassium 4.0, BUNs 16, creatinine 1.02, calcium 8.2, magnesium 2.1 IMPRESSION/PLAN: History of mitral valve repair History of bicuspid aortic valve with moderate AI History of A. fib recurrent RVR Known aortic aneurysm Currently the maximum diameter is at the level of sinus Valsalva 5.6 cm Continue multi 400 mg twice a day Attempt electrical cardioversion on Sunday Continue anticoagulation Patient will need aortic valve and aortic root surgery in the near future Objective - Vital Signs Vital signs: Vital Signs Temp 97.9 F 11/05/21 08:48 Pulse 66 11/05/21 11:21 Resp 17 11/05/21 11:21 BP 106/68 11/05/21 11:21 Pulse Ox 96 11/05/21 11:21 Intake & Output 11/04/21 11/05/21 11/05/21 18:59 06:59 18:59 Intake Total 250 Balance 250 Intake: Intake, IV Titration 10 Amount Sodium Chloride 0.9% 1, 10 000 ml @ 20 mls/hr IV . Q24H [facility] Rx#:[id number] Oral 240 Other: Voiding Method Toilet Toilet Toilet # Voids 0 - Labs CBC & Chem 7: 11/04/21 06:15 11/04/21 06:15 Labs: Abnormal Lab Results - Last 24 Hours (Table) 11/05/21 Range/Units 08:33 PT 23.9 H (9.0-12.0) sec INR 2.4 H (<1.2)
--- NOTE | 2021-11-05 15:36 | P.PN ---
Subjective Progress Note Date: 11/05/21 (delayed charting seen at 1045) Principal diagnosis: dizziness Patient is a 65-year-old male with hypertension, A fib anticoagulated with coumadin, and heart valve replacement who presented with palpitations and dizziness. . He presented to the emergency department with a chief complaint of palpitations and dizziness/lightheadedness. He was recently hospitalizazed on 10/29/21 and discharged on 10/30/21 for similar complaint. In the emergency department he underwent an extensive evaluation. EKG showing atrial fibrillation with a rapid ventricular rate of 108 bpm. Chest x-ray was negative for acute cardiopulmonary process. Labs reviewed CBC unremarkable. INR therapeutic at 2.9. CMP revealed mild hyperbilirubinemia with total bili of 1.6 otherwise no significant abnormalities with corrected calcium of 8.6. Troponin normal findings at less than 0.012. He was placed in observation. He was seen by cardiology. He underwent cardioversion on 11/03 which resulted in return of normal sinus rhythm for several minutes before he went back into A. fib. His Rythmol was changed to multaq. He underwent a CT of the chest which demonstrated an enlarging aortic aneurysm. He was seen by cardiothoracic surgery who recommends close outpatient follow-up. Patient seen and examined at bedside. He had one episode of loose stools this morning. He denies any chest pain or shortness of breath overnight. All questions answered. Wondering how quickly he needs to have his aortic root replaced and we discussed getting his records from [place] 100 determine how qu ickly this needs to be done. General: Nontoxic, no distress, appears at stated age Derm: warm, dry Head: atraumatic, normocephalic, symmetric Eyes: EOMI, no lid lag, anicteric sclera Mouth: no lip lesion, mucus membranes moist Cardiovascular: S1S2 irreg, no murmur, positive posterior tibial pulse bilateral, Lungs: CTA bilateral, no rhonchi, no rales , no accessory muscle use Abdominal: soft, nontender to palpation, no guarding, no appreciable organomegaly Ext: no gross muscle atrophy, no edema, no contractures Neuro: CN II-XI grossly intact, no focal neuro deficits Psych: Alert, oriented, appropriate affect Assessment and plan: A. fib with RVR status post unsuccessful cardioversion on 11/03/21 Presyncope secondary to above -Plan is for cardioversion on 11/07/21. Continue with multaq. -Telemetry -Cardiology recommendations appreciated -Echocardiogram with ejection fraction 50-55% and dilation of the aortic root. -TSH within normal limits -Anticoagulated with Coumadin, pharmacy to dose Diarrhea X 1 - conitnue to monitor Ascending aortic aneurysm -Cardiothoracic surgery recommendations appreciated. Will need outpatient follow-up. Attempting to obtain prior records from [place]. DVT prophylaxis: coumadin Discussed with: patient, nursing Anticipated discharge: on 11/07/[address]: home A total of 25 minutes was spent on the care of this complex patient more than 50% of the time was spent in counseling and care coordination. Objective - Vital Signs Vital signs: Vital Signs Temp 97.9 F 11/05/21 08:48 Pulse 66 11/05/21 14:00 Resp 17 11/05/21 14:00 BP 106/68 11/05/21 11:21 Pulse Ox 96 11/05/21 11:21 Intake & Output 11/04/21 11/05/21 11/05/21 18:59 06:59 18:59 Intake Total 250 Balance 250 Intake: Intake, IV Titration 10 Amount Sodium Chloride 0.9% 1, 10 000 ml @ 20 mls/hr IV . Q24H ROSSY Rx#:[id number] Oral 240 Other: Voiding Method Toilet Toilet Toilet # Voids 0 - Labs CBC & Chem 7: 11/04/21 06:15 11/04/21 06:15 Labs: Abnormal Lab Results - Last 24 Hours (Table) 11/05/21 Range/Units 08:33 PT 23.9 H (9.0-12.0) sec INR 2.4 H (<1.2)
[2021-11-06] MEDS: DRONEDARONE 400 MG TAB PO SCH ×2 (06:28→17:02)
[2021-11-06] MEDS: METOPROLOL TARTRATE 25 MG TAB PO SCH ×2 (09:00→21:56)
[2021-11-06 09:26] LABS: INR 2.8 (<1.2); Prothrombin Time 27.6 sec (9.0-12.0)
[2021-11-06] MEDS ORDERED: WARFARIN 2 MG TAB PO ONE (10:00)
--- NOTE | 2021-11-06 14:16 | P.PN ---
Subjective Progress Note Date: 11/06/21 This is Sridhar adams NP, I'm dictating on behalf of Dr. Pinto's H&P and A&P. Patient was interviewed and examined. Patient is a pleasant 65-year-old male who initially presented to the hospital with chest pain and new onset A. fib. Patient was started on multiple tach, which was discontinued yesterday, the patient remains in atrial fibrillation, however he is rate controlled. Due to the new onset of atrial fibrillation, it is planned that the patient have a cardioversion tomorrow. Patient should be nothing by mouth at midnight. Patient should still receive his Coumadin as ordered. GENERAL: Well-appearing, well-nourished and in no acute distress. NECK: Supple without JVD or thyromegaly. LUNGS: Breath sounds clear to auscultation bilaterally. Respiration equal and unlabored. No wheezes, rales or rhonchi. HEART: Regular rate and irregular rhythm without murmurs, rubs or gallops. S1 a nd S2 heard. EXTREMITIES: Normal range of motion, no edema. No clubbing or cyanosis. Peripheral pulses intact and strong. VITALS: Temp 98.1, pulse 53, respirations 18, blood pressure 111/72, O2 saturation 97% on room air TELEMETRY: Atrial fibrillation with controlled ventricular response IMPRESSION/PLAN: 1. New onset atrial fibrillation-plan for cardioversion tomorrow. Nothing by mouth at midnight. Continue Coumadin as ordered. Objective - Vital Signs Vital signs: Vital Signs Temp 98.1 F 11/06/21 08:52 Pulse 58 L 11/06/21 11:13 Resp 18 11/06/21 11:13 BP 101/62 11/06/21 11:13 Pulse Ox 97 11/06/21 11:13 Intake & Output 11/05/21 11/06/21 11/06/21 18:59 06:59 18:59 Intake Total 120 Balance 120 Intake: Oral 120 Other: Voiding Method Toilet Toilet Toilet # Voids 2 2 - Labs CBC & Chem 7: 11/04/21 06:15 11/04/21 06:15 Labs: Abnormal Lab Results - Last 24 Hours (Table) 11/06/21 Range/Units 08:20 PT 27.6 H (9.0-12.0) sec INR 2.8 H (<1.2)
--- NOTE | 2021-11-06 15:29 | P.PN ---
Subjective Progress Note Date: 11/06/21 (delayed charting seen at 1030) Principal diagnosis: dizziness Patient is a 65-year-old male with hypertension, A fib anticoagulated with coumadin, and heart valve replacement who presented with palpitations and dizziness. . He presented to the emergency department with a chief complaint of palpitations and dizziness/lightheadedness. He was recently hospitalizazed on 10/29/21 and discharged on 10/30/21 for similar complaint. In the emergency department he underwent an extensive evaluation. EKG showing atrial fibrillation with a rapid ventricular rate of 108 bpm. Chest x-ray was negative for acute cardiopulmonary process. Labs reviewed CBC unremarkable. INR therapeutic at 2.9. CMP revealed mild hyperbilirubinemia with total bili of 1.6 otherwise no significant abnormalities with corrected calcium of 8.6. Troponin normal findings at less than 0.012. He was placed in observation. He was seen by cardiology. He underwent cardioversion on 11/03 which resulted in return of normal sinus rhythm for several minutes before he went back into A. fib. His Rythmol was changed to multaq. He underwent a CT of the chest which demonstrated an enlarging aortic aneurysm. He was seen by cardiothoracic surgery who recommends close outpatient follow-up. Patient seen and examined at bedside. No additional loose stool episode, no nausea or vomiting, no chest pain or shortness of breath. General: Nontoxic, no distress, appears at stated age Derm: warm, dry Head: atraumatic, normocephalic, symmetric Eyes: EOMI, no lid lag, anicteric sclera Mouth: no lip lesion, mucus membranes moist Cardiovascular: S1S2 irreg, no murmur, positive posterior tibial pulse dory ateral, Lungs: CTA bilateral, no rhonchi, no rales , no accessory muscle use Abdominal: soft, nontender to palpation, no guarding, no appreciable organomegaly Ext: no gross muscle atrophy, no edema, no contractures Neuro: CN II-XI grossly intact, no focal neuro deficits Psych: Alert, oriented, appropriate affect Assessment and plan: A. fib with RVR status post unsuccessful cardioversion on 11/03/21 Presyncope secondary to above -Plan is for cardioversion on 11/07/21. Continue with multaq. -Telemetry -Cardiology recommendations appreciated -Echocardiogram with ejection fraction 50-55% and dilation of the aortic root. -TSH within normal limits -Anticoagulated with Coumadin, pharmacy to dose Ascending aortic aneurysm -Cardiothoracic surgery recommendations appreciated. Will need outpatient follow-up. Attempting to obtain prior records from [place]. Diarrhea, resolved DVT prophylaxis: coumadin Discussed with: patient, nursing Anticipated discharge: on 11/07/[address]: home A total of 25 minutes was spent on the care of this complex patient more than 50% of the time was spent in counseling and care coordination. Objective - Vital Signs Vital signs: Vital Signs Temp 98.1 F 11/06/21 08:52 Pulse 72 11/06/21 15:06 Resp 18 11/06/21 15:06 BP 94/65 11/06/21 15:06 Pulse Ox 96 11/06/21 15:06 Intake & Output 11/05/21 11/06/21 11/06/21 18:59 06:59 18:59 Intake Total 240 Balance 240 Intake: Oral 240 Other: Voiding Method Toilet Toilet Toilet # Voids 2 2 3 - Labs CBC & Chem 7: 11/04/21 06:15 11/04/21 06:15 Labs: Abnormal Lab Results - Last 24 Hours (Table) 11/06/21 Range/Units 08:20 PT 27.6 H (9.0-12.0) sec INR 2.8 H (<1.2)
[2021-11-07] MEDS: DRONEDARONE 400 MG TAB PO SCH ×2 (07:25→18:31)
[2021-11-07 08:34] LABS: INR 3.1 (<1.2); Prothrombin Time 30.7 sec (9.0-12.0)
[2021-11-07] MEDS ORDERED: WARFARIN 0.5 MG TAB PO ONE (10:00)
--- NOTE | 2021-11-07 11:00 | P.PN ---
<Carter Rojas - Last Filed: 11/07/21 10:49> Subjective Progress Note Date: 11/07/21 Hospital course: Patient is a very pleasant 65-year-old male with a past medical history of hy pertension, arrhythmia of unknown type and heart valve replacement with repair on anticoagulation with Coumadin. He presented to the emergency department with a chief complaint of palpitations and dizziness/lightheadedness. Patient reports over the past week he has been experiencing episodes in which his heart felt as if it was beating very fast, he has been told in the past that he has an arrhythmia and even required defibrillation years ago secondary to rapid rate. Patient states this rapid heart rate has came and gone over the past week and reports this morning he got into a hot and steamy shower and after a few minutes began to feel very faint and dizzy accompanied by palpitations and feeling as though his heart was racing. Patient reports he managed to get himself out of the shower and dried off and then laid on the floor and called for his girlfriend. Patient denies having any headache, changes in vision or hearing, chest pain, shortness of breath, dyspnea with exertion, nausea, or experiencing any numbness/tingling/weakness/swelling in his extremities. Patient underwent resedate admission on 10/29/21 and discharged on 10/30/21 for similar complaint. In the emergency department, patient was seen and fully evaluated. EKG showing atrial fibrillation with a rapid ventricular rate of 108 bpm with periodic PVCs. Chest x-ray was negative for acute cardiopulmonary process. Labs reviewed CBC unremarkable. INR therapeutic at 2.9. CMP revealed mild hyperbilirubinemia wit h total bili of 1.6 otherwise no significant abnormalities with corrected calcium of 8.6. Troponins negative. Echocardiogram revealed EF between 50-55% with a severely dilated left atrium and a moderately enlarged right atrium, mild to moderate aortic regurgitation, mild aortic stenosis, mild to moderate mitral regurgitation, and mild tricuspid regurgitation. Patient underwent KAIDEN with cardioversion on 11/03/21 with unsuccessful cardioversion as pt converted into sinus rhythm however after approximately 3 minutes he then converted back into atrial fibrillation. Cardiology made some antiarrhythmic medication change as, flecainide has been discontinued and patient started on Dronedarone 400 mg with meals twice daily. CTA revealed ascending aortic aneurysm with dilated aortic root and cardiomegally. Cardiothoracic surgery was consulted to evaluate. Physical exam: Patient seen and fully evaluated at the bedside this morning. He remains in persistent atrial fibrillation, ventricular rate appears to be more controlled 70s to 90s. Plan is for patient to go down for a reattempt at cardioversion later today. We are awaiting records from [place] regarding previous measurements of ascending aortic aneurysm. Patient reports currently feeling w ell. He denies having any headache, lightheadedness, dizziness, chest pain, palpitations, or shortness of breath at this time. INR remains therapeutic at 3.1. Vital signs reviewed and stable. General: Nontoxic, no distress and appears stated age. Derm: Skin warm and dry, normal coloration for ethnicity. Head: Atraumatic, normocephalic and symmetric. Eyes: EOMs intact, no lid lag, and anicteric sclera Mouth: no lip lesions, mucus membranes moist Cardiovascular: Irregularly irregular, systolic murmur, positive posterior tibial pulses bilaterally, and cap refill < 2 seconds. Lungs: Respirations even, regular, and unlabored on room air. Lungs CTA bilaterally, no rhonchi, no rales, no wheezing, and no accessory muscle usage. Abdominal: soft, nontender to palpation, no guarding, no appreciable organomegaly Ext: ROM intact. No gross muscle atrophy, no edema, no contractures Neuro: Speech clear, face symmetrical and CN II-XII grossly intact with no noted focal neuro deficits Psych: Alert and oriented to person, place, time, and situation. Appropriate and pleasant affect. Assessment and Plan of Care: Atrial fibrillation with RVR Dizziness/lightheadedness with reports of presyncopal episode -Plan is for cardioversion later today. -Continue with antiarrhythmic Dronedarone 400 mg with meals twice daily. -Telemetry -Cardiology recommendations appreciated -Echocardiogram with ejection fraction 50-55% and dilation of the aortic root. -TSH within normal limits -Anticoagulated with Coumadin, pharmacy to dose Ascending aortic aneurysm -CTA revealed ascending aortic aneurysm with dilated aortic root and cardiomegally. -Cardiothoracic surgery consulted, awaiting records to be obtained from [place] CODE STATUS: Full code DVT prophylaxis: Coumadin, pharmacy to dose Discussed with: Patient and RN Anticipated discharge date: Possibly tomorrow pending outcome of cardioversion being completed later today. Anticipated discharge place: Home A total of 40 minutes was spent on the care of this complex patient more than 50% of the time was spent in counseling and care coordination. Objective - Vital Signs Vital signs: Vital Signs Temp 97.4 F L 11/07/21 04:00 Pulse 76 11/07/21 04:00 Resp 18 11/07/21 04:00 BP 90/60 11/07/21 04:00 Pulse Ox 96 11/07/21 04:00 Intake & Output 11/06/21 11/07/21 11/07/21 18:59 06:59 18:59 Intake Total 240 540 Balance 240 540 Intake: Oral 240 540 Other: Voiding Method Toilet Toilet # Voids 3 2 1 - Labs CBC & Chem 7: 11/04/21 06:15 11/04/21 06:15 Labs: Abnormal Lab Results - Last 24 Hours (Table) 11/07/21 Range/Units 07:57 PT 30.7 H (9.0-12.0) sec INR 3.1 H (<1.2) <John Benoit - Last Filed: 11/07/21 17:16> Subjective I reviewed the documentation as provided by the GILBERT above, who is the original author of this note. I agree with the documented assessment and plan, with the following changes: None Objective - Vital Signs Vital signs: Vital Signs Temp 98.2 F 11/07/21 11:12 Pulse 58 L 11/07/21 14:00 Resp 16 11/07/21 12:51 BP 91/63 11/07/21 12:51 Pulse Ox 98 11/07/21 12:51 Intake & Output 11/06/21 11/07/21 11/07/21 18:59 06:59 18:59 Intake Total 240 1080 Balance 240 1080 Weight 81.647 kg Intake: IV 300 Oral 240 780 Other: Voiding Method Toilet Toilet # Voids 3 2 1 - Labs CBC & Chem 7: 11/04/21 06:15 11/04/21 06:15 Labs: Abnormal Lab Results - Last 24 Hours (Table) 11/07/21 Range/Units 07:57 PT 30.7 H (9.0-12.0) sec INR 3.1 H (<1.2)
[2021-11-07] MEDS ORDERED: LACTATED RINGERS 1,000 ML IV ONE ×2 (11:53)
[2021-11-07] MEDS ORDERED: LIDOCAINE 1% INJ 10MG/ML (20 ML MDV) ONE (12:00)
[2021-11-07] MEDS ORDERED: PROPOFOL 10 MG/ML 100 ML VIAL IV ONE (12:00)
--- NOTE | 2021-11-07 12:22 | P.PCN ---
Date of Procedure: 11/07/21 Description of Procedure: Cardioversion: After explained the procedure to the patient, the risks and the complications. His blood pressure, heart rate and O2 sat saturation were monitored. He received sedation per anesthesia department. A Synchronized 150 J cardioversion was performed with orthodoxy of sinus mechanism. There was no immediate complications.
[2021-11-07] MEDS ORDERED: SODIUM CHLORIDE 0.9% 1,000 ML IV SCH (12:30)
[2021-11-07] MEDS: METOPROLOL TARTRATE 25 MG TAB PO SCH ×2 (16:34→20:10)
[2021-11-07] MEDS: SODIUM CHLORIDE 0.9% 1,000 ML IV SCH ×2 (16:35→20:12)
[2021-11-08] MEDS: DRONEDARONE 400 MG TAB PO SCH (06:33)
[2021-11-08 08:19] LABS: HCT 45.9 % (39.0-53.0); HGB 14.7 gm/dL (13.0-17.5); MCH 30.6 pg (25.0-35.0); MCHC 31.9 g/dL (31.0-37.0); MCV 95.8 fL (80.0-100.0); Mean Platelet Volume 8.3; Platelet Count 183 k/uL (150-450); RDW 13.5 % (11.5-15.5); WBC 7.2 k/uL (3.8-10.6)
[2021-11-08 08:28] LABS: Calcium 8.2 mg/dL (8.4-10.2); INR 2.5 (<1.2); Magnesium 2.1 mg/dL (1.6-2.3); Potassium 4.1 mmol/L (3.5-5.1); Prothrombin Time 24.9 sec (9.0-12.0); Total Bilirubin 1.2 mg/dL (0.2-1.3); Total Protein 5.9 g/dL (6.3-8.2)
[2021-11-08] MEDS ORDERED: METOPROLOL SUCCINATE (ER) 25 MG TAB.ER.24H PO SCH (09:00)
[2021-11-08] MEDS ORDERED: WARFARIN 2 MG TAB PO ONE (09:00)
[2021-11-08] MEDS ORDERED: WARFARIN 3 MG TAB PO ONE (09:00)
--- NOTE | 2021-11-08 10:41 | P.DS ---
Providers Date of admission: 11/01/21 15:54 Expected date of discharge: 11/08/21 Attending physician: Alpa Watson, DO Consults: 10/31/21 09:45 Consult Physician Urgent Consulting Provider: Satnam Diehl Consult Reason/Comments: chest pain, new onset afib Do you want consulting provider notified?: Yes 10/31/21 11:29 Consult Physician Routine Consulting Provider: Dwayne Pinto Consult Reason/Comments: Paroxysmal/persistent atrial fibrillation/flutter Do you want consulting provider notified?: Yes 11/04/21 10:37 Consult Physician Routine Consulting Provider: Ngozi Rhodes Consult Reason/Comments: ascending aortic aneurysm Do you want consulting provider notified?: Yes [facility]: Discharge Diagnosis: Atrial fibrillation with RVR, patient converted back to normal sinus rhythm status post synchronized cardioversion on 11/07/21. Continue daily medication regimen with Multaq and metoprolol. Dizziness/lightheadedness with reports of presyncopal episode, resolved Ascending aortic aneurysm, avoid strenuous upper body activity and maintain tight control of her blood pressure with beta blockers. He will need to follow- up with cardiothoracic surgery for planning of aortic surgery. Hospital Course: Patient is a very pleasant 65-year-old male with a past medical history of hypertension, arrhythmia of unknown type and heart valve replacement with repair on anticoagulation with Coumadin. He presented to the emergency department with a chief complaint of palpitations and dizziness/lightheadedness. Patient reports over the past week he has been experiencing episodes in which his heart felt as if it was beating very fast, he has been told in the past that he has an arrhythmia and even required defibrillation years ago secondary to rapid rate. Patient states this rapid heart rate has came and gone over the past week and reports this morning he got into a hot and steamy shower and after a few minutes began to feel very faint and dizzy accompanied by palpitations and feeling as though his heart was racing. Patient reports he managed to get himself out of the shower and dried off and then laid on the floor and called for his girlfriend. Patient denies having any headache, changes in vision or hearing, chest pain, shortness of breath, dyspnea with exertion, nausea, or experiencing any numbness/tingling/weakness/swelling in his extremities. Patient underwent resedate admission on 10/29/21 and discharged on 10/30/21 for similar complaint. In the emergency department, patient was seen and fully evaluated. EKG showing atrial fibrillation with a rapid ventricular rate of 108 bpm with periodic PVCs. Chest x-ray was negative for acute cardiopulmonary process. Labs reviewed CBC unremarkable. INR therapeutic at 2.9. CMP revealed mild hyperbilirubinemia with total bili of 1.6 otherwise no significant abnormalities with corrected calcium of 8.6. Troponins negative. Echocardiogram revealed EF between 50-55% with a severely dilated left atrium and a moderately enlarged right atrium, mild to moderate aortic regurgitation, mild aortic stenosis, mild to moderate mitral regurgitation, and mild tricuspid regurgitation. Patient underwent KAIDEN with cardioversion on 11/03/21 with unsuccessful cardioversion as pt converted into sinus rhythm however after approximately 3 minutes he then converted back into atrial fibrillation. Cardiology made some antiarrhythmic medication change as, flecainide has been discontinued and patient started on Dronedarone 400 mg with meals twice daily. CTA revealed ascending aortic aneurysm with dilated aortic root and cardiomegally. Cardiothoracic surgery was consulted to evaluate. Cardiothoracic surgery recommending patient to continue management of atrial fibrillation and should follow-up in their office for planning of aortic surgery. Patient educated to avoid any strenuous upper body activity and to maintain tight control of blood pressure with beta blockers as he reports he has been doing for many years. On 11/07/21 patient went for a reattempt at [facility]. This time cardioversion was completed with synchronized 150 J resulting in successful conversion back into sinus rhythm in which patient has maintained. Patient monitored throughout the night and continued to maintain sinus mechanism. Cardiology recommending patient continue Multaq and metoprolol and continue to follow up outpatient with their office in one week. Patient is medically stable for discharge at this time and to follow up outpatient with PCP, cardiology, and cardiothoracic surgery as discussed. Physical exam: Patient seen and fully evaluated at bedside this morning. He remains in sinus rhythm and denies having any complaints including headache, lightheadedness, dizziness, chest pain, palpitations, shortness of breath, or experiencing any numbness/tingling/weakness in his extremities. INR remains therapeutic at 2.5. Vital signs reviewed and stable. General: Nontoxic, no distress and appears stated age. Derm: Skin warm and dry, normal coloration for ethnicity. Head: Atraumatic, normocephalic and symmetric. Eyes: EOMs intact, no lid lag, and anicteric sclera Mouth: no lip lesions, mucus membranes moist Cardiovascular: Regular rate and rhythm, bradycardic rate. Systolic murmur, positive posterior tibial pulses bilaterally, and cap refill < 2 seconds. Lungs: Respirations even, regular, and unlabored on room air. Lungs CTA bilaterally, no rhonchi, no rales, no wheezing, and no accessory muscle usage. Abdominal: Soft, nontender to palpation, no guarding, no appreciable organomegaly Ext: ROM intact. No gross muscle atrophy, no edema, no contractures Neuro: Speech clear, face symmetrical and CN II-XII grossly intact with no noted focal neuro deficits Psych: Alert and oriented to person, place, time, and situation. Appropriate and pleasant affect. A total of 50 minutes of time were spent preparing this complex discharge summary. Patient Condition at Discharge: Stable Plan - Discharge Summary Discharge Rx Participant: No New Discharge Prescriptions: New Dronedarone [Multaq] 400 mg PO AC-BID 30 Days #60 tab Continue Warfarin [Coumadin] 2.5 mg PO WE Warfarin [Coumadin] 5 mg PO SUMOTUTHFRSA Metoprolol Succinate [Toprol XL] 25 mg PO DAILY Discontinued Flecainide [Tambocor] 50 mg PO BID Discharge Medication List Metoprolol Succinate [Toprol XL] 25 mg PO DAILY 03/29/21 [History] Warfarin [Coumadin] 5 mg PO SUMOTUTHFRSA 03/29/21 [History] Warfarin [Coumadin] 2.5 mg PO WE 10/29/21 [History] Dronedarone [Multaq] 400 mg PO AC-BID 30 Days #60 tab 11/08/21 [Rx] Follow up Appointment(s)/Referral(s): Satnam Diehl MD [Family Provider] - 11/15/21 3:45 pm Ermias Gentile MD [Primary Care Provider] - 1-2 days (Patient would like to make own appointments.) Ngozi Rhodes MD [STAFF PHYSICIAN] - 11/11/21 11:45 am () Patient Instructions/Handouts: Cardioversion (DC) Activity/Diet/Wound Care/Special Instructions: Activity: As tolerated. Avoid strenuous upper body activity. Take breaks as needed. Diet: Heart healthy and carb consistent diet. Avoid salts, or foods with hidden salts such as canned or boxed foods and frozen dinners. Extra salt makes your heart work harder and traps the fluid in your body for longer. Special Instructions: Take all of your medications as directed and remember to keep all of your doctor's appointments and follow-up as needed. Thank you for allowing us to participate in your care, it was truly a pleasure having you for our patient!!! Remember it is of utmost importance to maintain tight control over your blood pressure, monitor this twice daily and document findings in a daily log. If you find trends in your blood pressure to be elevating, it is important to call and discuss these findings with your snowblower mechanic and cardiothoracic surgeon immedia tely status changes may need to be made to your daily medication regimen. Below you will find a list of cardiothoracic surgeons based on locations as you requested but remember it is very important to follow up with Dr. Rhodes as recommended next week... Ngozi Rhodes MD Cardiothoracic Surgery *[facility]ve [place] [address] [facility], [address] [place] [address] Sophia Heredia MD Cardiothoracic Surgeon [place], [place] Dr. Rigoberto Mcfarland MD - [address] Georges Drew MD Cardiovascular and thoracic surgeon [address] Discharge Disposition: HOME SELF-CARE
--- NOTE | 2021-11-08 11:11 | P.PN ---
Subjective HISTORY OF PRESENT ILLNESS: This is a pleasant 65-year-old male past medical history significant for paroxysmal atrial fibrillation on Coumadin, peripheral vascular disease, thoracic descending aortic aneurysm, mitral valve repair in 2004 in [place], hypertension, bicuspid aortic valve. He follows in the office with Dr. Diehl. We have been asked to see in consultation for chest pain, presyncope and atrial fibrillation. Patient presents emergency department with complaints of dizziness and lightheadedness. EKG reveals atrial fibrillation, heart rate 103, PVC. Echocardiogram completed revealing ejection fraction 50-55%, mild to moderate aortic regurgitation, mild aortic stenosis, [id number] mitral regurgitation, mild tricuspid regurgitation. 11/03/21 KAIDEN revealed dilated aortic root of 5 cm with moderate aortic regu rgitation in relation to the bicuspid aortic valve, EF 50%, mild mitral regurgitation, mild tricuspid regurgitation 11/03/2021- Patient underwent cardioversion with recurrence of atrial fibrillation 3 minutes after Patient was then loaded with Multaq and repeat cardioversion was recommended. 11/07/2021 patient underwent successful cardioversion with Dr. Diehl. Patient maintained sinus mechanism 11/08/2021 Patient seen and examined at bedside, no acute distress. He denies any chest pain, palpitations, lightheadedness, dizziness. Telemetry reviewed patient sinus mechanism heart rate in the 50s to 60s, occasional PVCs. Patient is hemodynamically stable. He's currently maintained on all tach 400 mg twice a day, metoprolol succinate 25 mg daily PHYSICAL EXAM: VITAL SIGNS: Reviewed. GENERAL: Well-developed in no acute distress. NECK: Supple. No JVD or thyromegaly LUNGS: Respirations even and unlabored. Lungs essentially clear to auscultation bilaterally. HEART: Regular rate and rhythm. S1 and S2 heard. Systolic and diastolic murmur noted. EXTREMITIES: Normal range of motion. No clubbing or cyanosis. Peripheral pulses intact. No lower extremity edema ASSESSMENT: Chest pain, atypical, not associated with acute coronary syndrome, likely due to atrial fibrillation with RVR Paroxysmal atrial fibrillation, on coumadin Status post failed cardioversion on 11/03/2021 Status post successful cardioversion after Multaq loading on 11/07/21 Ascending aortic aneurysm, known history of History of hypertension Bicuspid aortic valve History of mitral valve repair History of peripheral vascular disease PLAN: Continue Multaq 400mg BID and metoprolol succinate 25mg daily From a cardiology perspective, patient is stable to be discharged home. Follow up with Dr. Diehl outpatient, patient has an appointment on 11/15/21. Further workup for aortic valve and aortic surgery with CT surgery and patient's primary [facility] mason will be discussed as an outpatient. Nurse practitioner note has been reviewed by physician. Signing provider agrees with the documented findings, assessment, and plan of care. Objective - Vital Signs Vital signs: Vital Signs Temp 97.9 F 11/08/21 03:47 Pulse 53 L 11/08/21 03:47 Resp 17 11/08/21 03:47 BP 120/72 11/08/21 03:47 Pulse Ox 95 11/08/21 03:47 Intake & Output 11/07/21 11/08/21 11/08/21 18:59 06:59 18:59 Intake Total 1080 10 120 Balance 1080 10 120 Weight 81.647 kg Intake: IV 300 10 Invasive Line 2 10 Oral 780 120 Other: Voiding Method Toilet # Voids 2 3 - Labs CBC & Chem 7: 11/08/21 07:40 11/08/21 07:40 Labs: Abnormal Lab Results - Last 24 Hours (Table) 11/08/21 11/08/21 Range/Units 07:40 07:40 PT 24.9 H (9.0-12.0) sec INR 2.5 H (<1.2) Chloride 109 H (98-107) mmol/L Calcium 8.2 L (8.4-10.2) mg/dL Total Protein 5.9 L (6.3-8.2) g/dL Albumin 3.0 L (3.5-5.0) g/dL
[2021-11-08 11:14] VITALS: BP 112/77; PULSE 55; RESP 18; TEMP 98
[2021-11-08 13:29] VITALS: BMI 23.1
== END 2021-11-08 14:20 | disposition home or self-care (01) | DRG 309 ==
LOC: EC 08:16 → 6NMEDSUR 09:46 → 3SCARD 13:13 → OBSVTOIN 11-01 15:54
PROVIDERS: ADMIT Internal Medicine; ATTEND Internal Medicine
PROC: B24BZZ4 Ultrasonography of Heart with Aorta, Transesophageal (ICD-10-PCS; principal; 2021-11-03 11:00)
PROC: 5A2204Z Restoration of Cardiac Rhythm, Single (ICD-10-PCS; principal; 2021-11-03 11:00)
PROC: 5A2204Z Restoration of Cardiac Rhythm, Single (ICD-10-PCS; 2021-11-07)
DX: I48.19 Other persistent atrial fibrillation (principal); Q23.1 Congenital insufficiency of aortic valve; I48.92 Unspecified atrial flutter; I49.3 Ventricular premature depolarization; I47.1 Supraventricular tachycardia; I71.2 Thoracic aortic aneurysm, without rupture; I70.0 Atherosclerosis of aorta; I73.9 Peripheral vascular disease, unspecified; I10 Essential (primary) hypertension; E80.6 Other disorders of bilirubin metabolism; Z79.01 Long term (current) use of anticoagulants; Z79.899 Other long term (current) drug therapy; Z86.79 Personal history of other diseases of the circulatory system; Z95.2 Presence of prosthetic heart valve
CPT/HCPCS: 36415; 71046; 71275; 80053; 80061; 83735; 84443; 84484; 85025; 85027; 85610; 85730; 92960; 93005; 93306; 93312; 93320; 93325; 94760; 96374; 99285

== ENCOUNTER 2021-12-12 06:06 | Day surgery (SDC) | payer MEDICARE, OTHER ==
[2021-12-09 11:48] VITALS: BMI 23.1
[~2021-12-12 06:06] MED LIST: ALPRAZolam 0.25 MG TAB PO PRN; ALPRAZolam 0.5 MG TAB PO PRN; ASPIRIN 325 MG TAB PO STA; ATORVASTATIN 80 MG TAB PO STA; HEPARIN SODIUM,PORCINE 10,000 UNIT in SODIUM CHLORIDE 0.9% 1,000 ML IRRIGATION PRN; HEPARIN SODIUM,PORCINE 2,500 UNIT in SODIUM CHLORIDE 0.9% 250 ML IRRIGATION PRN; NITROGLYCERIN SL TABS 0.4 MG TAB SUBLINGUAL PRN; SODIUM CHLORIDE 0.9% 1,000 ML in EMPTY BAG 1 BAG IV SCH
[2021-12-12 06:40] LABS: Basophils # (A) 0.1 k/uL (0-0.2); Basophils % (A) 1 %; Eosinophils # (A) 0.3 k/uL (0-0.7); Eosinophils % (A) 3 %; HCT 51.8 % (39.0-53.0); HGB 16.7 gm/dL (13.0-17.5); Lymphocytes # (A) 2.2 k/uL (1.0-4.8); Lymphocytes % (A) 23 %; MCH 29.6 pg (25.0-35.0); MCHC 32.2 g/dL (31.0-37.0); MCV 91.8 fL (80.0-100.0); Mean Platelet Volume 8.2; Monocytes # (A) 0.7 k/uL (0-1.0); Monocytes % (A) 8 %; Neutrophils # (A) 5.7 k/uL (1.3-7.7); Neutrophils % (A) 61 %; Platelet Count 198 k/uL (150-450); RBC 5.64 m/uL (4.30-5.90); RDW 13.4 % (11.5-15.5); WBC 9.3 k/uL (3.8-10.6)
[2021-12-12] MEDS ORDERED: SODIUM CHLORIDE 0.9% 1,000 ML IV ONE (06:46)
[2021-12-12 06:54] LABS: Prothrombin Time 11.2 sec (9.0-12.0)
[2021-12-12 07:14] LABS: Potassium 4.3 mmol/L (3.5-5.1)
[2021-12-12 07:15] VITALS: RESP 16; TEMP 98.6
[2021-12-12] MEDS ORDERED: fentaNYL (PF) 50 MCG/ML 2 ML AMP IV ONE (07:34)
[2021-12-12] MEDS ORDERED: LIDOCAINE 1% INJ 10MG/ML (20 ML MDV) SQ ONE ×2 (07:36→07:37)
[2021-12-12] MEDS ORDERED: VERAPAMIL SYRINGE (5 MG/10 ML) INTRAARTER ONE (07:38)
[2021-12-12] MEDS ORDERED: MIDAZOLAM 2 MG/2 ML VIAL IV ONE (07:41)
[2021-12-12] MEDS ORDERED: IOPAMIDOL-370 125ML BTL INJ ONE (07:51)
[2021-12-12] MEDS ORDERED: RX INFO: IV CONTRAST WAS GIVEN 1 EACH MISC MISCELLANE PRN (08:01)
--- NOTE | 2021-12-12 08:09 | P.CARDCATH ---
Date of Procedure: 12/12/21 Description of Procedure: Cardiac Catheterization: The patient is a 66-year-old male, post mitral valve repair with a known history of bicuspid aortic valve and dilatation of the ascending aorta with most recent CT angiogram showed the dimension of 5.6 cm. Recommendations were made regarding cardiac catheterization, the risks and the complications were discussed with the patient who is in full understanding and agreement. Procedure Description: Patient was brought to [facility] in fasting semi-sedated state after receiving Fentanyl and Benadryl achieiving moderate conscious sedated state. Using Xylocaine Anesthesia and Seldinger technique, a 6-Vietnamese sheath was introduced in the right radial artery . Subsequently, selective coronary angiography performed using a 5-Vietnamese 4 bend Karolina catheter. Multiple views of the coronary artery including hemiaxial views were obtained. The 5-Vietnamese pigtail catheter was positioned in the ascending aorta and an KIMBER aortogram was performed. Following that, catheter and sheath were removed. Hemostasis was obtained with deployment of TR band . There was no immediate complication. Patient was returned to room in stable condition. Of note, the patient received a total of 4000 units of intravenous heparin as well as intra-arterial verapamil. There was no immediate complications. Findings: Left main: This is a large size vessel, bifurcating into LAD and left circumflex, left main has no high-grade stenosis LAD: This is a large size vessel, reaching to the apex, giving rise to 2 diagonal branch, the second one is larger in caliber, the LAD has no high-grade stenosis Left circumflex: This is a nondominant vessel, giving rise to large obtuse marginal branch that has no evidence of obstructive disease RCA: This is a large dominant vessel, bifurcating into PDA and PLV, the RCA has no obstructive disease. [Left] Ventriculogram: Was not performed Aortogram: Exam was performed in the KIMBER view revealed a dilated ascending aorta with 2-3+ aortic regurgitation Conclusion: 1. Normal coronary arteries 2. Dilated ascending aorta with aneurysmal formation 3. 2-3+ aortic regurgitation 4. Right dominance Recommendations: Have recommended to proceed with evaluation for ascending aorta repair as well as aortic valve. Findings and recommendations were discussed with the patient and his family and they are in full understanding and agreement. Duration of sedation is 20 minutes.
[2021-12-12] MEDS ORDERED: SODIUM CHLORIDE 0.9% 1,000 ML IV SCH (08:15)
[2021-12-12] MEDS ORDERED: MULTIVITAMINS, THERA 1 EACH TAB PO SCH (09:00)
[2021-12-12 10:28] VITALS: BP 107/56
[2021-12-12 11:04] VITALS: PULSE 57
[2021-12-12] MEDS ORDERED: DRONEDARONE 400 MG TAB PO SCH (17:30)
[2021-12-12] MEDS ORDERED: WARFARIN 5 MG TAB PO SCH (18:00)
[2021-12-13] MEDS ORDERED: METOPROLOL SUCCINATE (ER) 25 MG TAB.ER.24H PO SCH (09:00)
[2021-12-14] MEDS ORDERED: WARFARIN 5 MG TAB PO SCH (18:00)
== END 2021-12-12 12:08 | disposition home or self-care (01) ==
LOC: CATHCVL 06:06
PROVIDERS: ATTEND Internal Medicine Interventional Cardiology
DX: I71.2 Thoracic aortic aneurysm, without rupture (principal); Z95.2 Presence of prosthetic heart valve; Q23.1 Congenital insufficiency of aortic valve; Z20.822 Contact with and (suspected) exposure to COVID-19
CPT/HCPCS: 93454; 93567; 80048; 85025; 85610; 87635; C1894; C1769; J2250; J2001; J3010; J1644; Q9967

== ENCOUNTER 2022-02-27 03:50 | Emergency (ER) | payer BC, MEDICARE, OTHER ==
[2022-02-27 03:54] VITALS: TEMP 97.2
[2022-02-27 04:59] LABS: Basophils % (A) 1 %; Eosinophils # (A) 0.3 k/uL (0-0.7); Eosinophils % (A) 5 %; HCT 46.5 % (39.0-53.0); HGB 15.5 gm/dL (13.0-17.5); Lymphocytes # (A) 1.4 k/uL (1.0-4.8); Lymphocytes % (A) 25 %; MCH 30.5 pg (25.0-35.0); MCHC 33.3 g/dL (31.0-37.0); MCV 91.5 fL (80.0-100.0); Mean Platelet Volume 8.5; Monocytes # (A) 0.5 k/uL (0-1.0); Monocytes % (A) 8 %; Neutrophils # (A) 3.2 k/uL (1.3-7.7); Neutrophils % (A) 56 %; Platelet Count 182 k/uL (150-450); RBC 5.08 m/uL (4.30-5.90); RDW 13.3 % (11.5-15.5); WBC 5.6 k/uL (3.8-10.6)
[2022-02-27 05:07] LABS: INR 1.3 (<1.2); Partial Thromboplastin Time 25.3 sec (22.0-30.0); Prothrombin Time 13.4 sec (9.0-12.0)
[2022-02-27 05:13] LABS: Albumin 3.9 g/dL (3.5-5.0); Calcium 8.6 mg/dL (8.4-10.2); Potassium 3.9 mmol/L (3.5-5.1); Total Bilirubin 0.8 mg/dL (0.2-1.3); Total Protein 6.6 g/dL (6.3-8.2)
--- NOTE | 2022-02-27 06:36 | ED ---
Chest Pain HPI - General Chief Complaint: Chest Pain Stated Complaint: L Arm Pain Time Seen by Provider: 02/27/22 04:11 Source: patient Mode of arrival: ambulatory Limitations: no limitations - History of Present Illness Initial Comments: This patient is 66-year-old man who presents with complaint of left arm and left chest pain. The patient states that approximately 2 hours ago he was awakened from sleep by a squeezing sensation to his left arm. He indicates the distal portion of the bicep towards the elbow. Patient noted that there was aching p ain as well to the left chest in the axillary line. The symptoms lasted about 2 minutes. They were accompanied by diaphoresis. He states that everything had resolved. He does have previous history of having his mitral valve "fixed". MD Complaint: chest pain -: hour(s) Onset: during rest, awoke with symptoms Pain Location: left chest Pain Radiation: LUE Severity: severe Quality: tightness Consistency: now resolved Improves With: nothing Worsens With: nothing Anginal Symptoms: diaphoresis Treatments Prior to Arrival: none - Related Data Home Medications Medication Instructions Recorded Confirmed Metoprolol Succinate [Toprol XL] 25 mg PO DAILY 03/29/21 12/12/21 Warfarin [Coumadin] 5 mg PO SUMOTUTHFRSA 03/29/21 12/12/21 Warfarin [Coumadin] 2.5 mg PO WE 10/29/21 12/12/21 Multivitamins, Thera [Multivitamin 1 tab PO DAILY 12/09/21 12/12/21 (formulary)] Aspirin 325 mg PO DAILY PRN 12/12/21 12/12/21 Previous Rx's Medication Instructions Recorded Dronedarone [Multaq] 400 mg PO AC-BID 30 Days #60 tab 11/08/21 Allergies Allergy/AdvReac Type Severity Reaction Status Date / Time No Known Allergies Allergy Verified 02/27/22 03:54 Review of Systems ROS Statement: Those systems with pertinent positive or pertinent negative responses have been documented in the HPI. ROS Other: All systems not noted in ROS Statement are negative. Constitutional: Denies: fever, chills Respiratory: Denies: cough, dyspnea Cardiovascular: Reports: chest pain. Denies: palpitations, orthopnea, edema, syncope Gastrointestinal: Denies: abdominal pain, nausea, vomiting Genitourinary: Denies: dysuria, hematuria Musculoskeletal: Denies: back pain Skin: Denies: rash EKG Findings - EKG Results: EKG: sinus rhythm (With occasional supraventricular complexes.) EKG shows: bradycardia (Rate 56 bpm) - Blocks, [place], Hypertrophy, ST Abn: AV and intraventricular conduction: intraventricular conduction delay QRS axis and voltage: left axis deviation (-30 to -90) Past Medical History Past Medical History: Atrial Fibrillation, Hypertension Additional Past Medical History / Comment(s): Ascending aortic aneurysm followed yearly. RECENT INPT FOR AFIB-11/03/21-11/07/21 AND 10/29-10/30, has quarter size bruise below left breast that appeared recently, not sure from what History of Any Multi-Drug Resistant Organisms: None Reported Past Surgical History: Heart Catheterization Additional Past Surgical History / Comment(s): Robotic mitral valve replacement in 2006 in [place]. CARDIOVERSION X2. KAIDEN Past Anesthesia/Blood Transfusion Reactions: No Reported Reaction Past Psychological History: No Psychological Hx Reported Smoking Status: Never smoker Past Alcohol Use History: None Reported Past Drug Use History: None Reported General Exam Limitations: no limitations General appearance: alert, in no apparent distress Head exam: Present: atraumatic, normocephalic Eye exam: Present: normal appearance. Absent: scleral icterus, conjunctival injection ENT exam: Present: normal oropharynx Neck exam: Present: normal inspection Respiratory exam: Present: normal lung sounds bilaterally. Absent: respiratory distress, wheezes, rales, rhonchi, stridor Cardiovascular Exam: Present: normal rhythm, irregular rhythm, systolic murmur. Absent: diastolic murmur, rubs, gallop GI/Abdominal exam: Present: soft. Absent: distended, tenderness, guarding, rebound, rigid, mass Extremities exam: Present: normal inspection, normal capillary refill. Absent: pedal edema, calf tenderness Back exam: Present: normal inspection. Absent: CVA tenderness (R), CVA tenderness (L) Neurological exam: Present: alert Skin exam: Present: warm, dry, intact, normal color. Absent: rash Course Vital Signs 02/27/22 02/27/22 03:51 07:15 Temperature 97.2 F L Pulse Rate 61 57 L Respiratory 18 16 Rate Blood Pressure 141/83 113/76 O2 Sat by Pulse 99 98 Oximetry Chest [facility] Patient is 66-year-old man presenting with episode of left upper extremity and chest pain. Suspect angina as underlying cause. I reviewed the studies with the patient and recommended admission, but the patient states that he did have heart cath approximately a month ago with good results. He has not had any symptoms since the episode resolved 2 minutes after began. He would like to follow up as outpatient with the stem roller or crusher operator. Discussed risk of missed NC and patient states will return if any symptoms recur, or any other change in condition. Disposition Clinical Impression: Angina pectoris Disposition: HOME SELF-CARE Condition: Good Instructions (If sedation given, give patient instructions): Angina (ED) Is patient prescribed a controlled substance at d/c from ED?: No Referrals: Ermias Gentile MD [Primary Care Provider] - 1-2 days
--- NOTE | 2022-02-27 07:13 | XR ---
EXAM: XR Chest, 2 Views CLINICAL HISTORY: Reason: Chest Pain TECHNIQUE: Frontal and lateral views of the chest. COMPARISON: 10/31/21 FINDINGS: Lungs: There is no evidence of airspace consolidation. Mild parenchymal scarring and volume loss seen within the right lower lobe. Minimal scarring also seen in left mid-lung. No pulmonary edema. Pleural space: There is no evidence of pneumothorax. Heart: Mild cardiomegaly.. Mediastinum: No mediastinal widening or shift. Bones/joints: Unremarkable. IMPRESSION: No evidence of airspace consolidation, pulmonary edema or pneumothorax. Mild cardiomegaly. Right lower lobar parenchymal scarring and volume loss.
[2022-02-27 07:17] VITALS: BP 113/76; PULSE 57; RESP 16
== END 2022-02-27 07:17 | disposition home or self-care (01) ==
LOC: EC 03:50
DX: I20.9 Angina pectoris, unspecified (principal); I10 Essential (primary) hypertension; I48.91 Unspecified atrial fibrillation; Z79.01 Long term (current) use of anticoagulants; Z79.82 Long term (current) use of aspirin; Z79.899 Other long term (current) drug therapy
CPT/HCPCS: 36415; 71046; 80053; 83735; 84484; 85025; 85610; 85730; 99285

== ENCOUNTER 2023-08-21 09:07 | Day surgery (SDC) | payer MEDICARE ==
[~2023-08-21 09:07] MED LIST changes: -ALPRAZolam 0.25 MG TAB PO PRN; -ALPRAZolam 0.5 MG TAB PO PRN; -ASPIRIN 325 MG TAB PO STA; -ATORVASTATIN 80 MG TAB PO STA; -HEPARIN SODIUM,PORCINE 10,000 UNIT in SODIUM CHLORIDE 0.9% 1,000 ML IRRIGATION PRN; -HEPARIN SODIUM,PORCINE 2,500 UNIT in SODIUM CHLORIDE 0.9% 250 ML IRRIGATION PRN; -NITROGLYCERIN SL TABS 0.4 MG TAB SUBLINGUAL PRN; +SODIUM CHLORIDE 0.9% 1,000 ML IV SCH; -SODIUM CHLORIDE 0.9% 1,000 ML in EMPTY BAG 1 BAG IV SCH
[2023-08-21] MEDS ORDERED: SODIUM CHLORIDE 0.9% 500 ML 500 ML IV ONE (09:30)
[2023-08-21 10:12] LABS: Prothrombin Time 20.5 sec (10.0-12.5)
[2023-08-21 10:21] LABS: African American GFR (CKD) 65 (>60 ml/min/1.73 sqM); Anion Gap 9 mmol/L; Blood Urea Nitrogen 27 mg/dL (9-20); Calcium 8.9 mg/dL (8.4-10.2); Carbon Dioxide 22 mmol/L (22-30); Chloride 108 mmol/L (98-107); Glucose 94 mg/dL (74-99); Non-African American GFR(CKD) 56 (>60 ml/min/1.73 sqM); Potassium 4.6 mmol/L (3.5-5.1); Sodium 139 mmol/L (137-145)
[2023-08-21] MEDS ORDERED: BENZOCAINE SPRAY 1 CAN TOPICAL ONE ×2 (10:23→10:35)
[2023-08-21] MEDS ORDERED: LIDOCAINE 1% INJ 10MG/ML (20 ML MDV) ONE (10:29)
[2023-08-21] MEDS ORDERED: PROPOFOL 10 MG/ML 20 ML VIAL IV ONE (10:29)
[2023-08-21 10:48] VITALS: TEMP 97.2
--- NOTE | 2023-08-21 10:58 | P.PCN ---
Date of Procedure: 08/21/23 Description of Procedure: Indication: Atrial fibrillation Procedure Description: After explaining the procedure to the patient, it's risk and complications, blood pressure, heart rate and O2 saturation were monitored. The throat was sprayed with Cetacaine. Patient received sedation per anesthesia department. The probe was introduced into the esophagus without difficulty. Images were obtained. Following that, the probe was removed. There was no immediate complication. Findings: Left atrial size is dilated, closure of the left atrial appendage was noted. Spontaneous contrast is noted in the left atrium. Left ventricular systolic function is severely impaired with global hypokinesis. Estimated ejection fraction 30-35%. Evidence of mitral valve repair was noted. Bioprosthetic aortic valve was noted. There was normal valve leaflets movement. The tricuspid valve appears to be normal. Descending thoracic aorta appears to be normal. No pericardial effusion was noted. Contrast bubble study revealed no shunting across the intra-atrial septum. Doppler: Pulse wave and color Doppler were obtained, and revealed mild mitral and tricuspid regurgitation, there was no shunting across the intra-atrial septum. No flow was noted in the left atrium appendage. Conclusion: 1. Dilated left atrium with closure of the left atrial appendage and no flow 2. Severe global hypokinesis of the left ventricle 3. Bioprosthetic aortic valve with normal function 4. And mitral valve annuloplasty with mild mitral regurgitation 5. No shunting across the intra-atrial septum Cardioversion: After obtaining KAIDEN and sedated state a synchronized biphasic cardioversion using 150 J was performed with buddhism of sinus mechanism, there was no immediate complications.
[2023-08-21] MEDS ORDERED: WARFARIN 5 MG TAB PO SCH (11:00)
[2023-08-21] MEDS ORDERED: LACTATED RINGERS 1,000 ML IV ONE (11:15)
[2023-08-21 12:01] VITALS: RESP 16
[2023-08-21 12:25] VITALS: BP 97/68; PULSE 58
[2023-08-21] MEDS ORDERED: DRONEDARONE 400 MG TAB PO SCH (17:30)
[2023-08-21] MEDS ORDERED: SACUBITRIL/VALSARTAN 24 MG-26 MG TABLET PO SCH (21:00)
[2023-08-21] MEDS ORDERED: carvediloL 12.5 MG TAB PO SCH (21:00)
[2023-08-22] MEDS ORDERED: SPIRONOLACTONE 25 MG TAB PO SCH (09:00)
[2023-08-22] MEDS ORDERED: DAPAGLIFLOZIN PROPANEDIOL 10 MG TABLET PO SCH (09:00)
[2023-08-24] MEDS ORDERED: WARFARIN 2.5 MG TAB PO SCH (10:53)
== END 2023-08-21 12:21 | disposition home or self-care (01) ==
LOC: OR 09:07
PROVIDERS: ATTEND Internal Medicine Interventional Cardiology
DX: I34.0 Nonrheumatic mitral (valve) insufficiency (principal); I48.91 Unspecified atrial fibrillation; E78.5 Hyperlipidemia, unspecified; Z95.3 Presence of xenogenic heart valve; Z87.891 Personal history of nicotine dependence; Z95.2 Presence of prosthetic heart valve; Z79.82 Long term (current) use of aspirin; Z79.2 Long term (current) use of antibiotics; Z79.899 Other long term (current) drug therapy
CPT/HCPCS: 93312; 93320; 93325; 92960; 80048; 85610; J2001; J2704

== ENCOUNTER 2024-03-17 12:09 | Inpatient (IN) | payer MEDICARE ==
[2024-03-17] MEDS ORDERED: MAGNESIUM SULFATE-D5W PMX 1 GM in DEXTROSE/WATER 1 100ML.BAG IVPB PRN (12:45)
[2024-03-17 13:08] LABS: INR 2.5 (<1.2); Prothrombin Time 24.8 sec (10.0-12.5)
[2024-03-17 13:29] LABS: African American GFR (CKD) 83 (>60 ml/min/1.73 sqM); Anion Gap 6 mmol/L; Blood Urea Nitrogen 22 mg/dL (9-20); Calcium 8.8 mg/dL (8.4-10.2); Carbon Dioxide 22 mmol/L (22-30); Chloride 111 mmol/L (98-107); Glucose 93 mg/dL (74-99); Magnesium 2.1 mg/dL (1.6-2.3); Non-African American GFR(CKD) 72 (>60 ml/min/1.73 sqM); Potassium 4.7 mmol/L (3.5-5.1); Sodium 139 mmol/L (137-145)
[2024-03-17] MEDS ORDERED: MAGNESIUM SULFATE-D5W PMX 1 GM in DEXTROSE/WATER 1 100ML.BAG IVPB SCH (15:45)
[2024-03-17] MEDS ORDERED: [UNRECOGNIZED DRUG - OTHER] IV ONE (16:00)
[2024-03-17] MEDS ORDERED: MAGNESIUM SULFATE IV ONE (16:00)
[2024-03-17] MEDS: MAGNESIUM SULFATE-WATER PMX 4 GM in WATER FOR INJECTION 1 100ML.BAG IVPB STA (16:59)
--- NOTE | 2024-03-17 17:04 | P.HPCAR ---
History of Present Illness This is Dr. Pinto dictating an H/P on this patient The patient was interviewed and examined IMPRESSION / ASSESSMENT: Persistent A-fib with RVR with associated cardiomyopathy On guideline directed medical treatment Failed prior treatment for atrial fibrillation Normal renal function Twelve-lead EKG shows normal QT interval of less than 400 ms in lead V5 and V6 Occasional PVCs PLAN: In view of blood pressure in the low range along with A-fib with RVR, already on carvedilol and Entresto I will treat him with rapid IV magnesium dose of 4 g over 1 hour, for rate control of atrial fibrillation Low chance of cardioversion with IV magnesium Start dofetilide 250 mcg p.o. tonight at 6 PM Follow dofetilide protocol, EKG 3 hours after each dose Daily BMP and magnesium Do not hold carvedilol or Entresto or any cardiac medications Continue spironolactone Later oral magnesium if he stays long-term on dofetilide Planning for electrical cardioversion possibly on Sunday if he does not cardiovert by then Cardioversion orders put in Discussed with nurse Jaida Discussed with pharmacist Jaida TERAN Patient admitted for management of atrial fibrillation, persistent Associated cardiomyopathy He complains of shortness of breath on exertion tiredness fatigue and feels the palpitations No syncope ROS: No fever chills or rigors, no cough, phlegm or expectoration, no nausea, vomiting or diarrhea, no hematuria, dysuria, no musculoskeletal complaints, no strokes or seizures, no skin lesions. EXAMINATION: Comfortably in bed. Blood pressure 104/75 and 86/42 mmHg Heart rates ranged from 86-108 beats minute Heart rate up to 140 beats a minute also Afebrile No JVD Heart sounds are irregular no murmurs Breath sounds are clear No orthopnea REVIEW OF LABS, ECG & MEDICAL DATA INR 2.5 Sodium 139, potassium 4.7 BUN 22 and creatinine 1.1 TSH 0.7 Magnesium 2.1 Physical Exam Vitals: Vital Signs Temp Pulse Resp BP Pulse Ox 03/17/24 16:56 108 H 16 104/75 97 03/17/24 12:19 98.2 F 86 16 86/42 98 Intake and Output 03/17/24 03/17/24 03/17/24 06:59 14:59 22:59 Other: # Voids 1 Weight 81.3 kg Past Medical History Past Medical History: Atrial Fibrillation, Hypertension Additional Past Medical History / Comment(s): Ascending aortic aneurysm followed yearly now repaired History of Any Multi-Drug Resistant Organisms: None Reported Past Surgical History: Coronary Bypass/CABG, Heart Catheterization Additional Past Surgical History / Comment(s): Robotic mitral valve replacement in 2006 in [place] aneruysm repair,cardioversion. CARDIOVERSION X2. KAIDEN Past Anesthesia/Blood Transfusion Reactions: No Reported Reaction Smoking Status: Never smoker Physical Examination Vital Signs Temp Pulse Resp BP Pulse Ox 03/17/24 16:56 108 H 16 104/75 97 03/17/24 12:19 98.2 F 86 16 86/42 98 Intake and Output 03/17/24 03/17/24 03/17/24 06:59 14:59 22:59 Other: # Voids 1 Weight 81.3 kg Results 03/17/24 12:34 Coagulation 03/17/24 Range/Units 12:34 PT 24.8 H (10.0-12.5) sec Comprehensive Metabolic Panel 03/17/24 Range/Units 12:34 Sodium 139 (137-145) mmol/L Potassium 4.7 (3.5-5.1) mmol/L Chloride 111 H (98-107) mmol/L Carbon Dioxide 22 (22-30) mmol/L BUN 22 H (9-20) mg/dL Creatinine 1.07 (0.66-1.25) mg/dL Glucose 93 (74-99) mg/dL Calcium 8.8 (8.4-10.2) mg/dL Current Medications Generic Name Dose Route Start Last Admin Trade Name Freq PRN Reason Stop Dose Admin Aspirin 81 mg 03/18/24 09:00 Aspirin 81 Mg PO DAILY [facility] Atorvastatin Calcium 20 mg 03/18/24 09:00 Atorvastatin 20 Mg Tab PO DAILY [facility] Carvedilol 12.5 mg 03/17/24 17:30 Carvedilol 12.5 Mg Tab PO BID-W/MEALS [facility] Dapagliflozin 10 mg 03/18/24 09:00 Dapagliflozin Propanediol 10 Mg Tablet PO DAILY [facility] Dofetilide 250 mcg 03/17/24 18:00 Dofetilide 250 Mcg Cap PO Q12HR@0600,1800 [facility] Magnesium Sulfate/Dextrose 1 100 mls @ 100 mls/hr 03/17/24 12:45 gm/ IV Solution IVPB 03/24/24 23:00 Q1H PRN [employer] Sodium Chloride 1,000 mls @ 20 mls/hr 03/17/24 15:45 Saline 0.9% IV .Q24H [facility] Magnesium Oxide 400 mg 03/18/24 09:00 Magnesium Oxide 400 Mg Tab PO DAILY [facility] Sacubitril/Valsartan 1 each 03/17/24 21:00 Sacubitril/Valsartan 24 Mg-26 Mg Tablet PO BID [facility] Spironolactone 25 mg 03/18/24 09:00 Spironolactone 25 Mg Tab PO DAILY [facility] Warfarin Sodium 5 mg 03/17/24 18:00 Warfarin 5 Mg Tab PO DAILY@1800 [facility] Protocol Intake and Output 03/17/24 03/17/24 03/17/24 06:59 14:59 22:59 Other: # Voids 1 Weight 81.3 kg Patient Weight 03/18/24 06:59 Weight 81.3 kg 03/17/24 12:34
[2024-03-17] MEDS: carvediloL 12.5 MG TAB PO SCH (17:07)
[2024-03-17] MEDS: SODIUM CHLORIDE 0.9% 1,000 ML IV SCH (17:07)
[2024-03-17] MEDS: DOFETILIDE 250 MCG CAP PO SCH (18:06)
[2024-03-17] MEDS: WARFARIN 5 MG TAB PO SCH (18:06)
[2024-03-17] MEDS: SACUBITRIL/VALSARTAN 24 MG-26 MG TABLET PO SCH (21:03)
[2024-03-18 06:33] LABS: Basophils % (A) 1 %; Eosinophils # (A) 0.2 k/uL (0-0.7); Eosinophils % (A) 3 %; HCT 44.1 % (39.0-53.0); HGB 13.8 gm/dL (13.0-17.5); Lymphocytes # (A) 1.2 k/uL (1.0-4.8); Lymphocytes % (A) 22 %; MCH 29.9 pg (25.0-35.0); MCHC 31.3 g/dL (31.0-37.0); MCV 95.6 fL (80.0-100.0); Mean Platelet Volume 9.2; Monocytes # (A) 0.5 k/uL (0-1.0); Monocytes % (A) 10 %; Neutrophils # (A) 3.5 k/uL (1.3-7.7); Neutrophils % (A) 63 %; Platelet Count 134 k/uL (150-450); RBC 4.61 m/uL (4.30-5.90); RDW 13.9 % (11.5-15.5); WBC 5.7 k/uL (3.8-10.6)
[2024-03-18 06:41] LABS: African American GFR (CKD) 80 (>60 ml/min/1.73 sqM); Anion Gap 1 mmol/L; Blood Urea Nitrogen 18 mg/dL (9-20); Calcium 8.3 mg/dL (8.4-10.2); Carbon Dioxide 25 mmol/L (22-30); Chloride 113 mmol/L (98-107); Glucose 89 mg/dL (74-99); Magnesium 2.5 mg/dL (1.6-2.3); Non-African American GFR(CKD) 69 (>60 ml/min/1.73 sqM); Potassium 4.1 mmol/L (3.5-5.1); Sodium 139 mmol/L (137-145)
[2024-03-18 06:43] LABS: INR 2.5 (<1.2)
[2024-03-18] MEDS: ATORVASTATIN 20 MG TAB PO SCH (09:08)
[2024-03-18] MEDS: DAPAGLIFLOZIN PROPANEDIOL 10 MG TABLET PO SCH (09:08)
[2024-03-18] MEDS: SPIRONOLACTONE 25 MG TAB PO SCH (09:11)
[2024-03-18] MEDS: MAGNESIUM OXIDE 400 MG TAB PO SCH (09:11)
[2024-03-18] MEDS: ASPIRIN 81 MG PO SCH (09:11)
--- NOTE | 2024-03-18 12:34 | P.PN ---
Subjective Progress Note Date: 03/18/24 The patient was interviewed and examined IMPRESSION / ASSESSMENT: Persistent A-fib with RVR with associated cardiomyopathy On guideline directed medical treatment Failed prior treatment for atrial fibrillation Normal renal function Twelve-lead EKG shows normal QT interval of less than 400 ms in lead V5 and V6 Occasional PVCs PLAN: In view of blood pressure in the low range along with A-fib with RVR, already on carvedilol and Entresto S/p rapid IV magnesium dose of 4 g over 1 hour, for rate control of atrial fibrillation with improvement Low chance of cardioversion with IV magnesium Continue dofetilide 250 mcg p.o. in a.m. Follow dofetilide protocol, EKG 3 hours after each dose Daily BMP and magnesium Do not hold carvedilol or Entresto or any cardiac medications Continue spironolactone Later oral magnesium if he stays long-term on dofetilide May discontinue oral magnesium during this hospital stay Planning for electrical cardioversion possibly on Sunday if he does not cardiovert by then HPI Patient admitted for management of atrial fibrillation, persistent Associated cardiomyopathy He complains of shortness of breath on exertion tiredness fatigue and feels the palpitations No syncope EXAMINATION: Comfortably in bed. Blood pressure 1 88/50 mmHg Heart rates ranged from 110 beats minute, high heart rates are better controlled Afebrile No JVD Heart sounds are irregular no murmurs Breath sounds are clear No orthopnea REVIEW OF LABS, ECG & MEDICAL DATA INR 2.5 Sodium 139, potassium 4.1, BUN 18 and creatinine 1.1 TSH 0.7 Magnesium 2.5 Nurse practitioner note has been reviewed, I agree with documented findings and plan of care. Patient was seen and examined. Objective - Vital Signs Vital signs: Vital Signs Temp 97.7 F 03/18/24 04:00 Pulse 104 H 03/18/24 04:00 Resp 18 03/18/24 04:00 BP 97/60 03/18/24 04:00 Pulse Ox 96 03/18/24 04:00 FiO2 Intake & Output 03/17/24 03/18/24 03/18/24 18:59 06:59 18:59 Intake Total 160 Balance 160 Weight 81.3 kg 81.1 kg Intake: IV 160 0.9 160 Other: Voiding Method Toilet # Voids 1 1 - Labs CBC & Chem 7: 03/18/24 06:07 03/18/24 06:07 Labs: Abnormal Lab Results - Last 24 Hours (Table) 03/17/24 03/17/24 03/18/24 Range/Units 12:34 12:34 06:07 Plt Count (150-450) k/uL PT 24.8 H 25.0 H (10.0-12.5) sec INR 2.5 H 2.5 H (<1.2) Chloride 111 H (98-107) mmol/L BUN 22 H (9-20) mg/dL Calcium (8.4-10.2) mg/dL Magnesium (1.6-2.3) mg/dL 03/18/24 03/18/24 Range/Units 06:07 06:07 Plt Count 134 L (150-450) k/uL PT (10.0-12.5) sec INR (<1.2) Chloride 113 H (98-107) mmol/L BUN (9-20) mg/dL Calcium 8.3 L (8.4-10.2) mg/dL Magnesium 2.5 H (1.6-2.3) mg/dL
[2024-03-18] MEDS: WARFARIN 5 MG TAB PO SCH (17:36)
[2024-03-18] MEDS: SODIUM CHLORIDE 0.9% 1,000 ML IV SCH (17:43)
[2024-03-18 20:01] LABS: Glucose,Whole Blood 131 mg/dL (70-110)
[2024-03-19 06:28] LABS: Basophils % (A) 1 %; Eosinophils # (A) 0.2 k/uL (0-0.7); Eosinophils % (A) 3 %; HCT 45.7 % (39.0-53.0); HGB 14.2 gm/dL (13.0-17.5); Lymphocytes # (A) 1.2 k/uL (1.0-4.8); Lymphocytes % (A) 20 %; MCV 96.7 fL (80.0-100.0); Mean Platelet Volume 9.2; Monocytes # (A) 0.6 k/uL (0-1.0); Monocytes % (A) 10 %; Neutrophils # (A) 3.8 k/uL (1.3-7.7); Neutrophils % (A) 63 %; Platelet Count 135 k/uL (150-450); RBC 4.73 m/uL (4.30-5.90); RDW 13.9 % (11.5-15.5); WBC 5.9 k/uL (3.8-10.6)
[2024-03-19 06:37] LABS: INR 2.3 (<1.2); Prothrombin Time 22.7 sec (10.0-12.5)
[2024-03-19 06:49] LABS: African American GFR (CKD) 76 (>60 ml/min/1.73 sqM); Anion Gap 4 mmol/L; Blood Urea Nitrogen 22 mg/dL (9-20); Calcium 8.6 mg/dL (8.4-10.2); Carbon Dioxide 23 mmol/L (22-30); Chloride 112 mmol/L (98-107); Glucose 88 mg/dL (74-99); Magnesium 2.1 mg/dL (1.6-2.3); Non-African American GFR(CKD) 65 (>60 ml/min/1.73 sqM); Potassium 4.4 mmol/L (3.5-5.1); Sodium 139 mmol/L (137-145)
[2024-03-19] MEDS: SODIUM CHLORIDE 0.9% 1,000 ML IV SCH (12:11)
--- NOTE | 2024-03-19 12:16 | P.PN ---
Subjective Progress Note Date: 03/19/24 The patient was interviewed and examined IMPRESSION / ASSESSMENT: Persistent A-fib with RVR with associated cardiomyopathy On guideline directed medical treatment Failed prior treatment for atrial fibrillation Normal renal function Twelve-lead EKG shows normal QT interval of less than 400 ms in lead V5 and V6 Occasional PVCs PLAN: ILow range along with A-fib with RVR, already on carvedilol and Entresto S/p rapid IV magnesium dose of 4 g over 1 hour, for rate control of atrial fibrillation with improvement Continue dofetilide 250 mcg p.o. in a.m. Follow dofetilide protocol, EKG 3 hours after each dose Daily BMP and magnesium Do not hold carvedilol or Entresto or any cardiac medications Continue spironolactone Later oral magnesium if he stays long-term on dofetilide May discontinue oral magnesium during this hospital stay Planning for electrical cardioversion postpone until due to scheduling difficulty with anesthesia, if he does not cardiovert by then HPI Patient admitted for management of atrial fibrillation, persistent Associated cardiomyopathy He complains of shortness of breath on exertion tiredness fatigue and feels the palpitations No syncope EXAMINATION: Comfortably in bed. Blood pressure 102/65 mmHg Heart rates ranged from 90 beats minute Afebrile No JVD Heart sounds are irregular no murmurs Breath sounds are clear No orthopnea REVIEW OF LABS, ECG & MEDICAL DATA INR 2.3 Sodium 139, potassium 4.4, BUN 22 and creatinine 1.1 TSH 0.7 Magnesium 2.5 Nurse practitioner note has been reviewed, I agree with documented findings and plan of care. Patient was seen and examined. Objective - Vital Signs Vital signs: Vital Signs Temp 98.2 F 03/19/24 07:42 Pulse 80 03/19/24 07:42 Resp 16 03/19/24 07:42 BP 102/65 03/19/24 07:42 Pulse Ox 99 03/19/24 07:42 FiO2 Intake & Output 03/18/24 03/19/24 03/19/24 18:59 06:59 18:59 Intake Total 236 160 Output Total 240 Balance 236 -80 Weight 81.2 kg Intake: IV 160 0.9 160 Oral 236 Output: Urine 240 Other: Voiding Method Toilet # Voids 1 2 - Labs CBC & Chem 7: 03/19/24 05:56 03/19/24 05:56 Labs: Abnormal Lab Results - Last 24 Hours (Table) 03/18/24 03/19/24 03/19/24 Range/Units 20:00 05:56 05:56 Plt Count 135 L (150-450) k/uL PT 22.7 H (10.0-12.5) sec INR 2.3 H (<1.2) Chloride (98-107) mmol/L BUN (9-20) mg/dL POC Glucose (mg/dL) 131 H (70-110) mg/dL 03/19/24 Range/Units 05:56 Plt Count (150-450) k/uL PT (10.0-12.5) sec INR (<1.2) Chloride 112 H (98-107) mmol/L BUN 22 H (9-20) mg/dL POC Glucose (mg/dL) (70-110) mg/dL
[2024-03-19] MEDS: WARFARIN 5 MG TAB PO SCH (17:08)
[2024-03-19] MEDS ORDERED: WARFARIN 2.5 MG TAB PO SCH (18:00)
[2024-03-19] MEDS ORDERED: WARFARIN 5 MG TAB PO ONE (18:00)
[2024-03-20 07:49] LABS: Basophils # (A) 0.1 k/uL (0-0.2); Basophils % (A) 1 %; Eosinophils # (A) 0.2 k/uL (0-0.7); Eosinophils % (A) 3 %; HGB 14.5 gm/dL (13.0-17.5); Lymphocytes # (A) 1.4 k/uL (1.0-4.8); Lymphocytes % (A) 21 %; MCH 30.3 pg (25.0-35.0); MCHC 32.1 g/dL (31.0-37.0); MCV 94.2 fL (80.0-100.0); Mean Platelet Volume 9.3; Monocytes # (A) 0.6 k/uL (0-1.0); Monocytes % (A) 9 %; Neutrophils # (A) 4.2 k/uL (1.3-7.7); Neutrophils % (A) 63 %; Platelet Count 134 k/uL (150-450); RBC 4.78 m/uL (4.30-5.90); RDW 14.1 % (11.5-15.5); WBC 6.5 k/uL (3.8-10.6)
[2024-03-20 07:53] LABS: INR 2.5 (<1.2); Prothrombin Time 24.6 sec (10.0-12.5)
[2024-03-20 08:13] LABS: African American GFR (CKD) 88 (>60 ml/min/1.73 sqM); Anion Gap 4 mmol/L; Blood Urea Nitrogen 19 mg/dL (9-20); Calcium 8.6 mg/dL (8.4-10.2); Carbon Dioxide 23 mmol/L (22-30); Chloride 112 mmol/L (98-107); Glucose 88 mg/dL (74-99); Magnesium 1.8 mg/dL (1.6-2.3); Non-African American GFR(CKD) 76 (>60 ml/min/1.73 sqM); Potassium 4.1 mmol/L (3.5-5.1); Sodium 139 mmol/L (137-145)
[2024-03-20] MEDS: SODIUM CHLORIDE 0.9% 500 ML 500 ML IV ONE (10:43)
[2024-03-20] MEDS ORDERED: PROPOFOL 10 MG/ML 20 ML VIAL IV ONE (10:49)
[2024-03-20] MEDS ORDERED: HYDROCORTISONE 1% CREAM 30 GM TUBE TOPICAL PRN (10:52)
--- NOTE | 2024-03-20 11:28 | P.EPPROC ---
- EP Procedure Note Electrophysiology Procedure Note: Diagnosis Persistent symptomatic atrial fibrillation associated with cardiomyopathy, failed electrical cardioversion A-fib with RVR despite rate control medications Treated with IV magnesium 4 g over 1 hour with improved rate control but patient remained in atrial fibrillation Initiated dofetilide 250 mcg twice daily with organization to an atrial tachycardia with upright flutter waves in lead V1 Ventricular rates still well-controlled after magnesium IV Procedure Successful electrical cardioversion with a 200 J biphasic shock in the AP configuration Postprocedure runs of slow atrial tachycardia noted Occasional brief run of nonsustained VT monomorphic Absolute QT interval between 480-520 ms Post pause absolute QT interval is 520 ms Plan Reduce dofetilide to 125 mcg twice daily Continue monitoring QT interval Reduce carvedilol to 6.25 mg twice daily Oral magnesium daily Continue Entresto In view of the organization of the atrial tachycardia with dofetilide as well as runs of atrial tachycardia postconversion I would recommend an A-fib ablation with PVI and perhaps linear ablation and ablation of the atrial tachycardia if inducible post PVI. It is quite likely he will need at least low-dose dofetilide 125 mcg twice daily if his QT interval remains normal I would use a combination of antiarrhythmic drug therapy as well as A-fib ablation to maintain sinus rhythm for management of cardiomyopathy as long as he is able to tolerate dofetilide
--- NOTE | 2024-03-20 12:28 | P.PN ---
Subjective Progress Note Date: 03/20/24 The patient was interviewed and examined IMPRESSION / ASSESSMENT: Persistent A-fib with RVR with associated cardiomyopathy On guideline directed medical treatment Failed prior treatment for atrial fibrillation Normal renal function Twelve-lead EKG shows normal QT interval of less than 400 ms in lead V5 and V6 Occasional PVCs PLAN: A-fib with RVR, already on carvedilol and Entresto S/p rapid IV magnesium dose of 4 g over 1 hour, for rate control of atrial fibrillation with improvement Continue dofetilide 250 mcg p.o.q12h. Follow dofetilide protocol, EKG 3 hours after each dose Daily BMP and magnesium Do not hold carvedilol or Entresto or any cardiac medications Continue spironolactone Later oral magnesium if he stays long-term on dofetilide May discontinue oral magnesium during this hospital stay Planning for electrical cardioversion HPI Patient admitted for management of atrial fibrillation, persistent Associated cardiomyopathy He complains of shortness of breath on exertion tiredness fatigue and feels the palpitations No syncope EXAMINATION: Comfortably in bed. Blood pressure 100/65 mmHg Heart rates ranged from 70s and 80s beats per minute Afebrile No JVD Heart sounds are irregular no murmurs Breath sounds are clear No orthopnea REVIEW OF LABS, ECG & MEDICAL DATA INR 2.5 Sodium 139, potassium 4.1, BUN 19 and creatinine 1.02 TSH 0.7 Magnesium 2.5 Nurse practitioner note has been reviewed, I agree with documented findings and plan of care. Patient was seen and examined. Objective - Vital Signs Vital signs: Vital Signs Temp 98.0 F 03/20/24 03:59 Pulse 85 03/20/24 03:59 Resp 18 03/20/24 03:59 BP 92/50 03/20/24 03:59 Pulse Ox 95 03/20/24 03:59 FiO2 Intake & Output 03/19/24 03/20/24 03/20/24 18:59 06:59 18:59 Intake Total 240 160 Balance 240 160 Weight 80.9 kg Intake: IV 160 0.9 160 Oral 240 Other: Voiding Method Toilet # Voids 4 2 - Labs CBC & Chem 7: 03/20/24 06:52 03/20/24 06:52 Labs: Abnormal Lab Results - Last 24 Hours (Table) 03/20/24 03/20/24 03/20/24 Range/Units 06:52 06:52 06:52 Plt Count 134 L (150-450) k/uL PT 24.6 H (10.0-12.5) sec INR 2.5 H (<1.2) Chloride 112 H (98-107) mmol/L
[2024-03-20] MEDS: WARFARIN 5 MG TAB PO SCH (18:26)
[2024-03-20] MEDS: carvediloL 6.25 MG TAB PO SCH (18:27)
[2024-03-20] MEDS: DOFETILIDE 125 MCG CAP PO SCH (18:27)
[2024-03-21 08:48] LABS: INR 2.3 (<1.2); Prothrombin Time 22.6 sec (10.0-12.5)
[2024-03-21 10:21] LABS: African American GFR (CKD) 88 (>60 ml/min/1.73 sqM); Anion Gap 6 mmol/L; Blood Urea Nitrogen 20 mg/dL (9-20); Calcium 8.7 mg/dL (8.4-10.2); Carbon Dioxide 22 mmol/L (22-30); Chloride 111 mmol/L (98-107); Glucose 88 mg/dL (74-99); Magnesium 1.9 mg/dL (1.6-2.3); Non-African American GFR(CKD) 76 (>60 ml/min/1.73 sqM); Sodium 139 mmol/L (137-145)
--- NOTE | 2024-03-21 19:35 | P.PN ---
Progress Note - Text Patient is resting comfortably in bed No orthopnea PND Remains in sinus rhythm Short runs of nonsustained VT Heart rates are in the 50s On examination heart rate 52 beats minute blood pressure 105/56 mmHg afebrile Breath sounds are clear no rhonchi no crackles Heart sounds are normal Impression Persistent atrial fibrillation status post electrical cardioversion after initiation of dofetilide Prolonged QT interval, absolute, on 250 mcg p.o. twice daily Dose reduced to 125 mcg twice daily Today's absolute QT interval is 480 ms Runs of nonsustained VT continue during sinus rhythm as well as during atrial fibrillation, monomorphic No polymorphic VT Dose of beta-blockers was reduced to 6.25 mg twice daily since he was hugh ycardic His response to dofetilide 250 mcg twice daily was 1. Organization of atrial fibrillation 2 atrial tachycardia, 2-1 Post cardioversion Short bursts of atrial tachycardia, slow Prolongation of the QT interval to greater than 490 ms and hence dose reduction Sodium 139 potassium 4.0 BUN is 20 and creatinine is 1.0 Plan Continue dofetilide 125 mcg twice daily Add magnesium oxide 400 mg daily Continue monitoring Consider ablation for atrial fibrillation in addition to erythraemic drug therapy Final decision regarding dofetilide long-term use depending upon the absolute QT interval tomorrow and any arrhythmias
[2024-03-22 04:02] LABS: INR 2.6 (<1.2); Prothrombin Time 26.1 sec (10.0-12.5)
[2024-03-22 05:29] LABS: African American GFR (CKD) >90 (>60 ml/min/1.73 sqM); Anion Gap 6 mmol/L; Blood Urea Nitrogen 21 mg/dL (9-20); Calcium 8.6 mg/dL (8.4-10.2); Carbon Dioxide 21 mmol/L (22-30); Chloride 111 mmol/L (98-107); Glucose 85 mg/dL (74-99); Non-African American GFR(CKD) 80 (>60 ml/min/1.73 sqM); Sodium 138 mmol/L (137-145)
[2024-03-22] MEDS: MAGNESIUM OXIDE 400 MG TAB PO SCH (08:20)
[2024-03-22 10:26] VITALS: TEMP 97.9
[2024-03-22 12:16] VITALS: BP 96/60; PULSE 51; RESP 16
--- NOTE | 2024-03-22 14:20 | P.DS ---
Providers Date of admission: 03/17/24 12:09 Attending physician: Dwayne Pinto Primary care physician: [facility] Course: the patient was admitted on 03/17/2024 for dofetilide loading. On 03/20 the patient underwent electrical cardioversion with Dr. Pinto. On 03/21 patient had mild increasing QT interval, which further progressed as of today. Due to prolonged QT interval, dofetilide will be discontinued and the patient will be discharged. Patient interviewed and examined resting comfortably in bed.no chest pain or pressure. No difficulty breathing GENERAL: Well-appearing, well-nourished and in no acute distress. NECK: Supple without JVD or thyromegaly. LUNGS: Breath sounds clear to auscultation bilaterally. Respiration equal and unlabored. No wheezes, rales or rhonchi. HEART: Regular rate and rhythm without murmurs, rubs or gallops. S1 and S2 heard. EXTREMITIES: Normal range of motion, no edema. No clubbing or cyanosis. Peripheral pulses intact and strong. TELEMETRY: sinus rhythm IMPRESSION: persistent atrial fibrillation with RVR Admission for dofetilide loading QT prolongation with dofetilide Dilated cardiomyopathy Previously failed treatment for atrial fibrillation PLAN: discontinue dofetilide Continue all other cardiac medications including magnesium Plan for outpatient ablation with Dr. Pinto Follow-up with Dr. Diehl in 1-2 weeks I am dictating on behalf of Dr Dwayne Pinto's history/physical and assessm ent/plan. Plan - Discharge Summary Discharge Rx Participant: No New Discharge Prescriptions: New Magnesium Oxide [Magox 400] 400 mg PO DAILY #90 tablet No Action carvediloL 12.5 mg PO BID-W/MEALS Spironolactone 25 mg PO DAILY Sacubitril/Valsartan [Entresto 24 mg-26 mg Tablet] 1 tab PO BID Dapagliflozin Propanediol [Farxiga] 10 mg PO DAILY Atorvastatin [Lipitor] 20 mg PO DAILY Warfarin Sodium [Jantoven] 2.5 mg PO MOWEFR@2100 Warfarin Sodium [Jantoven] 5 mg PO SUTUTHSA@2100 Ubidecarenone [Coenzyme Q10] 100 mg PO DAILY Multivitamins, Thera [Multivitamin (formulary)] 1 tab PO DAILY Aspirin EC [Ecotrin Low Dose] 81 mg PO DAILY Discharge Medication List Dapagliflozin Propanediol [Farxiga] 10 mg PO DAILY 08/16/23 [History] Sacubitril/Valsartan [Entresto 24 mg-26 mg Tablet] 1 tab PO BID 08/16/23 [History] Spironolactone 25 mg PO DAILY 08/16/23 [History] Warfarin Sodium [Jantoven] 2.5 mg PO MOWEFR@209908/16/23 [History] Warfarin Sodium [Jantoven] 5 mg PO SUTUTHSA@209908/16/23 [History] carvediloL 12.5 mg PO BID-W/MEALS 08/16/23 [History] Aspirin EC [Ecotrin Low Dose] 81 mg PO DAILY 03/17/24 [History] Atorvastatin [Lipitor] 20 mg PO DAILY 03/17/24 [History] Multivitamins, Thera [Multivitamin (formulary)] 1 tab PO DAILY 03/17/24 [History ] Ubidecarenone [Coenzyme Q10] 100 mg PO DAILY 03/17/24 [History] Magnesium Oxide [Magox 400] 400 mg PO DAILY #90 tablet 03/22/24 [Rx] Follow up Appointment(s)/Referral(s): Satnam Diehl MD [STAFF PHYSICIAN] - 2 Weeks Patient Instructions/Handouts: A-fib (Atrial Fibrillation) (DC), Cardioversion (DC)
== END 2024-03-22 14:24 | disposition home or self-care (01) | DRG 310 ==
LOC: 3SCARD 12:09
PROVIDERS: ADMIT Internal Medicine Clinical Cardiac Electrophysiology; ATTEND Internal Medicine Clinical Cardiac Electrophysiology
PROC: 5A2204Z Restoration of Cardiac Rhythm, Single (ICD-10-PCS; principal; 2024-03-20 07:30)
DX: I48.19 Other persistent atrial fibrillation (principal); Z51.81 Encounter for therapeutic drug level monitoring; I45.81 Long QT syndrome; I49.3 Ventricular premature depolarization; Z79.01 Long term (current) use of anticoagulants; Z79.899 Other long term (current) drug therapy; Z95.1 Presence of aortocoronary bypass graft; Z95.2 Presence of prosthetic heart valve; I42.0 Dilated cardiomyopathy; I10 Essential (primary) hypertension; Z79.82 Long term (current) use of aspirin; Z86.79 Personal history of other diseases of the circulatory system; I48.92 Unspecified atrial flutter
CPT/HCPCS: 80048; 83735; 84443; 85025; 85610; 92960

== ENCOUNTER 2024-05-29 08:23 | Day surgery (SDC) | payer MEDICARE ==
[2024-05-26 11:07] VITALS: BMI 24.4
[2024-05-29] MEDS: IV FLUID CONTINUATION 1,000 ML IV ONE (08:43)
[2024-05-29] MEDS: SODIUM CHLORIDE 0.9% 1,000 ML IV SCH (08:43)
[2024-05-29 08:47] LABS: Basophils % (A) 1 %; Eosinophils # (A) 0.2 k/uL (0-0.7); Eosinophils % (A) 3 %; HCT 50.1 % (39.0-53.0); HGB 15.9 gm/dL (13.0-17.5); Hypochromasia Slight; Lymphocytes # (A) 1.2 k/uL (1.0-4.8); Lymphocytes % (A) 20 %; MCH 29.7 pg (25.0-35.0); MCHC 31.8 g/dL (31.0-37.0); MCV 93.5 fL (80.0-100.0); Mean Platelet Volume 8.2; Monocytes # (A) 0.5 k/uL (0-1.0); Monocytes % (A) 8 %; Neutrophils # (A) 3.9 k/uL (1.3-7.7); Neutrophils % (A) 65 %; Platelet Count 168 k/uL (150-450); RBC 5.36 m/uL (4.30-5.90); RDW 13.3 % (11.5-15.5); WBC 5.9 k/uL (3.8-10.6)
[2024-05-29 08:51] LABS: INR 2.2 (<1.2); Prothrombin Time 21.8 sec (10.0-12.5)
[2024-05-29 08:56] LABS: African American GFR (CKD) 73 (>60 ml/min/1.73 sqM); Anion Gap 6 mmol/L; Blood Urea Nitrogen 25 mg/dL (9-20); Calcium 9.1 mg/dL (8.4-10.2); Carbon Dioxide 28 mmol/L (22-30); Chloride 106 mmol/L (98-107); Glucose 89 mg/dL (74-99); Non-African American GFR(CKD) 64 (>60 ml/min/1.73 sqM); Potassium 4.5 mmol/L (3.5-5.1); Sodium 140 mmol/L (137-145)
[2024-05-29] MEDS ORDERED: PHENYLEPHRINE 10 MG/ML VIAL ONE (09:29)
[2024-05-29] MEDS: HEPARIN SODIUM,PORCINE 10,000 UNIT in SODIUM CHLORIDE 0.9% 1,000 ML IRRIGATION ONE (09:29)
[2024-05-29] MEDS ORDERED: HEPARIN SODIUM,PORCINE 10,000 UNIT/ML 1 ML VIAL ONE (09:29)
[2024-05-29] MEDS ORDERED: ceFAZolin 1 GM/50 ML BAG (PMX) ONE (09:29)
[2024-05-29] MEDS ORDERED: ETOMIDATE 2 MG/ML 10 ML VIAL ONE (09:29)
[2024-05-29] MEDS ORDERED: ONDANSETRON 4 MG/2 ML VIAL ONE (09:29)
[2024-05-29] MEDS ORDERED: SUCCINYLCHOLINE CHLORIDE 200 MG/10 ML VIAL IV ONE (09:29)
[2024-05-29] MEDS ORDERED: PROPOFOL 10 MG/ML 20 ML VIAL IV ONE (09:29)
[2024-05-29] MEDS ORDERED: ePHEDrine 50 MG/ML 1 ML VIAL ONE (09:29)
[2024-05-29] MEDS ORDERED: LIDOCAINE 1% INJ 10MG/ML (20 ML MDV) ONE (09:29)
[2024-05-29] MEDS ORDERED: PHENYLEPHRINE-0.9% NACL SYG 1,000 MCG/10 ML SYRINGE ONE (09:29)
[2024-05-29] MEDS ORDERED: fentaNYL (PF) 50 MCG/ML 2 ML AMP ONE (09:29)
[2024-05-29] MEDS: HEPARIN SOD,PORK IN 0.45% NACL 25,000 UNIT in 0.45% NACL 1 250ML.BAG IV ONE (09:45)
[2024-05-29] MEDS: LIDOCAINE 1% INJ 10MG/ML (20 ML MDV) SQ ONE (10:39)
[2024-05-29] MEDS: HEPARIN SODIUM,PORCINE (1 ML) 2,500 UNIT in SODIUM CHLORIDE 0.9% 250 ML IRRIGATION ONE (10:57)
--- NOTE | 2024-05-29 13:56 | P.EPPROC ---
- EP Procedure Note Electrophysiology Procedure Note: This is Dr. 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 He complains of shortness of breath and lack of energy He has failed electrical cardioversion A history of valvular heart disease with a bicuspid valve severe AI status post replacement, thoracic aortic aneurysm with repair Mitral valvuloplasty excision of the left atrial appendage He has had persistent atrial fibrillation for years Electrical cardioversion recently failed Left ventricular ejection fraction 30-35% with severe left atrial enlargement ROS: No fever chills or rigors, no cough, phlegm or expectoration, no nausea, vomiting or diarrhea, no hematuria, dysuria, no musculoskeletal complaints, no strokes or seizures, no skin lesions. EXAMINATION: Pulse rate 110 beats a minute at rest respirations 16-18 nonlabored Blood pressure 92/72 mmHg pulse ox 100% afebrile No JVD No lower extremity edema Clear lungs no rhonchi no crackles Heart sounds irregular tachycardic at rest REVIEW OF LABS, ECG & MEDICAL DATA White count 5.9 thousand, hematocrit 50, platelet count 168,000 INR 2.2 Sodium 140 potassium 4.5 BUN 25 creatinine 1.2
--- NOTE | 2024-05-29 14:04 | P.EPPROC ---
- EP Procedure Note Electrophysiology Procedure Note: PROCEDURE A. fib ablation with antral level PVI, left atrial roof ablation, left atrial septal ablation DIAGNOSIS Longstanding persistent atrial fibrillation, symptomatic, refractory to therapy RESULT Reduced LV systolic function, very dilated left atrium Successful A. fib ablation/pulmonary vein isolation of all veins using cryo- ablation Complete entrance block in all 4 veins confirmed No evidence for phrenic nerve injury Left atrial septal ablation Termination of left atrial roof reentrant tachycardia with linear ablation of the left atrial roof Esophageal deflection YES Electrical cardioversion with a synchronized shock across the chest YES PROCEDURE DETAILS Written informed consent prior to procedure. Patient brought to the EP lab. General anesthesia given. Heparin administered. A city maintained above 300 seconds Both groins prepped and draped per protocol and venous sheaths placed. Esophagus intubated, circa catheter for temperature monitoring an endoscope for possible esophageal deflection. Patient was in atrial fibrillation with elevated resting rates at baseline. After general anesthesia he was hypotensive despite pressors to 70 mmHg Electrical cardioversion was performed and atrial pacing was performed and his blood pressure improved The procedure was performed mostly during atrial pacing. Phrenic nerve monitoring performed. Esophageal temperature monitoring performed. Esophageal deflection performed if circa catheter overlapping with the balloon or circa temperature less than 27.5C Intracardiac echocardiography performed. Pericardium evaluated. Left atrial appendage evaluated. Left atrium evaluated along with pulmonary veins Transseptal catheterization performed under fluoroscopic guidance and intracardiac echo guidance Cryoablation sheath exchanged, balloon catheter along with achieve catheter placed in the left atrium. Pulmonary veins isolated in the following sequence: Left superior pulmonary vein followed by left inferior pulmonary vein, followed by right inferior pulmonary vein and lastly right superior pulmonary vein. Phrenic nerve stimulation along with capture thresholds within the SVC and right superior pulmonary vein to identify the phrenic nerve proximity to the cryo- balloon. Pulmonary veins isolated and confirmed with entrance and exit block. Phrenic nerve integrity confirmed at the end of the procedure Ablation of the left atrial roof performed with sequential lesions from the left superior to the right superior pulmonary veins. Ablation of the electrograms confirmed Ablation of the left atrial septum performed with cannulation of the superior branch of the right inferior or the inferior branch of the right superior vein to achieve ablation of the posterior septum of the left atrium. Ablation of electrograms confirmed Electrical cardioversion performed for persistence of atrial fibrillation despite successful ablation. Diagnostic catheters for the high right atrium, His bundle, coronary sinus placed. LA and RA pressures recorded RA pressure: 14/7/11 LA pressure: 27/77/17 Diagnostic EP study with coronary sinus pacing and recording Baseline measurements: In sinus rhythm IA interval 236 ms sinus cycle length 994 ms AH 75 and HV 46 ms QRS 123 ms Venous sheaths were removed and hemostasis assured with a closure device. Patient extubated and transferred to recovery Patient tolerated procedure well without any acute complications Increase procedural time During ablation multiple attempts had to be made to move the esophagus a safe distance of the from the pulmonary vein draining cryoablation, to avoid excessive thermal cooling of the esophagus This took extra time and effort to keep the esophagus a safe distance away from the cryoablation balloon. Very large left atrium, very long roof of the left atrium Very complex right sided pulmonary venous anatomy with very large tributaries of the superior and inferior right-sided veins Each tributary was isolated separately followed by septal ablation between the right-sided veins and the transseptal puncture Multiple attempts needed for successful cryoablation isolation of the pulmonary vein Voltage mapping was then performed and complete isolation of all pulmonary veins at the antral level and left atrial roof and left atrial septum was confirmed The patient developed an atrial tachycardia during PVI and this was mapped to the left atrial roof and successful ablation was performed with termination followed by confirmation of in the line with voltage mapping PROCEDURES PERFORMED Diagnostic EP study CS pacing and recording Left and right transseptal catheterization Catheter the mapping of the tachycardia Intracardiac echocardiography Pulmonary vein isolation with transseptal and comprehensive EPS, [id number] Extended procedure duration Left atrial roof line, +79740 Linear ablation, left atrium, +60152 Electrical cardioversion with a synchronized shock across the chest [id number]
[2024-05-29] MEDS: IOPAMIDOL-370 100ML BTL INJ ONE (14:39)
[2024-05-29] MEDS ORDERED: ACETAMINOPHEN TAB 325 MG TAB PO PRN (14:47)
[2024-05-29] MEDS: ACETAMINOPHEN IV (For NPO) 1,000 MG in EMPTY BAG 1 BAG IVPB ONE (16:21)
[2024-05-29] MEDS: carvediloL 6.25 MG TAB PO SCH (17:32)
[2024-05-29] MEDS: SACUBITRIL/VALSARTAN 24 MG-26 MG TABLET PO SCH (20:04)
[2024-05-29 21:56] VITALS: RESP 16
[2024-05-30 07:07] LABS: INR 2.3 (<1.2); Prothrombin Time 23.3 sec (10.0-12.5)
[2024-05-30 08:28] VITALS: BP 100/59; PULSE 85; TEMP 98.2
[2024-05-30] MEDS: SPIRONOLACTONE 25 MG TAB PO SCH (08:42)
[2024-05-30] MEDS: MAGNESIUM OXIDE 400 MG TAB PO SCH (08:42)
[2024-05-30] MEDS: ASPIRIN 81 MG PO SCH (08:42)
[2024-05-30] MEDS: DAPAGLIFLOZIN PROPANEDIOL 10 MG TABLET PO SCH (08:42)
[2024-05-30] MEDS: ATORVASTATIN 20 MG TAB PO SCH (08:43)
--- NOTE | 2024-05-30 10:38 | P.DS ---
Providers Attending physician: Dwayne Pinto Primary care physician: [facility] Course: This is a 68-year-old male who underwent A-fib ablation yesterday with Dr. Pinto. Patient examined this morning at the bedside. Patient currently denies chest pain or pressure. He denies shortness of breath. Vital signs are stable. Patient did have some oozing of the right femoral access site overnight which required placement of 1 suture this morning. Patient instructed to keep dressing to right groin in place until he follows up in the office and suture will be removed at that time. The patient was deemed stable for discharge home today per Dr. Pinto. Please see EMR for further hospital course details. DISCHARGE DIAGNOSIS: Longstanding persistent atrial fibrillation, symptomatic, refractory to therapy S/P A. fib ablation with antral level PVI, left atrial roof ablation, left atrial septal ablation Nurse practitioner note has been reviewed by physician. Signing provider agrees with the documented findings, assessment, and plan of care documented by SPECIALIZED DEVELOPER as a scribe. Plan - Discharge Summary Discharge Rx Participant: No New Discharge Prescriptions: Continue carvediloL 0.5 tab PO BID-W/MEALS Spironolactone 25 mg PO DAILY Sacubitril/Valsartan [Entresto 24 mg-26 mg Tablet] 1 tab PO BID Dapagliflozin Propanediol [Farxiga] 10 mg PO DAILY Atorvastatin [Lipitor] 20 mg PO DAILY Warfarin Sodium [Jantoven] 2.5 mg PO MOWEFR Warfarin Sodium [Jantoven] 5 mg PO SUTUTH Aspirin EC [Ecotrin Low Dose] 81 mg PO DAILY Magnesium Oxide [Magox 400] 400 mg PO DAILY #90 tablet Discharge Medication List Dapagliflozin Propanediol [Farxiga] 10 mg PO DAILY 08/16/23 [History] Sacubitril/Valsartan [Entresto 24 mg-26 mg Tablet] 1 tab PO BID 08/16/23 [His tory] Spironolactone 25 mg PO DAILY 08/16/23 [History] Warfarin Sodium [Jantoven] 2.5 mg PO MOWEFR 08/16/23 [History] Warfarin Sodium [Jantoven] 5 mg PO SUTUTHSA 08/16/23 [History] carvediloL 0.5 tab PO BID-W/MEALS 08/16/23 [History] Aspirin EC [Ecotrin Low Dose] 81 mg PO DAILY 03/17/24 [History] Atorvastatin [Lipitor] 20 mg PO DAILY 03/17/24 [History] Magnesium Oxide [Magox 400] 400 mg PO DAILY #90 tablet 03/22/24 [Rx] Follow up Appointment(s)/Referral(s): Satnam Diehl MD [STAFF PHYSICIAN] - 06/03/24 1:30 pm Activity/Diet/Wound Care/Special Instructions: Post EP study - Ablation instructions 1. Keep access sites dry for 2 days. 2. No heavy lifting or straining for 2 days. 3. Avoid bending the hips repeatedly for 2 days. 4. You may go up and down stairs slowly Call if the following is noted 1. Bleeding, increasing swelling or pain at the access sites. 2. Increasing chest discomfort, especially upon taking a deep breath. 3. Increasing shortness of breath, at rest or with exertion. 4. Undue cough / phlegm 5. Difficulty or pain while swallowing. 6. Pain or change in color in the extremities. 7. Fever, chills, rigors. 8. Increasing headache or neurologic symptoms. 9. Dizziness, fainting, palpitations Do not stop warfarin for any minor surgery for the next 3 months Lifelong warfarin Discharge Disposition: HOME SELF-CARE
--- NOTE | 2024-05-30 10:38 | P.CRDCN ---
History of Present Illness History of present illness: This is a 68-year-old male who underwent A-fib ablation yesterday with Dr. Pinto. Patient examined this morning at the bedside. Patient currently denies chest pain or pressure. He denies shortness of breath. Vital signs are stable. Patient did have some oozing of the right femoral access site overnight which required placement of 1 suture this morning. Patient instructed to keep dressing to right groin in place until he follows up in the office and suture will be removed at that time. The patient was deemed stable for discharge home today per Dr. Pinto. Please see EMR for further hospital course details. DISCHARGE DIAGNOSIS: Longstanding persistent atrial fibrillation, symptomatic, refractory to therapy S/P A. fib ablation with antral level PVI, left atrial roof ablation, left atrial septal ablation Nurse practitioner note has been reviewed by physician. Signing provider agrees with the documented findings, assessment, and plan of care documented by STONE SETTER as a scribe. Past Medical History Past Medical History: Atrial Fibrillation, Hyperlipidemia, Hypertension Additional Past Medical History / Comment(s): SEE DR. PINTO'S H&P. THORACIC AORTIC ANEURYSM, NON ISCHEMIC CARDIOMYOPATHY History of Any Multi-Drug Resistant Organisms: None Reported Past Surgical History: Coronary Bypass/CABG, Heart Catheterization Additional Past Surgical History / Comment(s): mitral valve replacement in 2006 in [place], aortic valve and aortic root repair, cardioversion Past Anesthesia/Blood Transfusion Reactions: No Reported Reaction Past Psychological History: No Psychological Hx Reported Smoking Status: Never smoker Past Alcohol Use History: None Reported Past Drug Use History: None Reported - Past Family History Mother Additional Family Medical History / Comment(s): lung CA-passed Father Family Medical History: Myocardial Infarction (MD) Additional Family Medical History / Comment(s): passed Medications and Allergies Home Medications Medication Instructions Recorded Confirmed Type Dapagliflozin Propanediol [Farxiga] 10 mg PO DAILY 08/16/23 05/29/24 History Sacubitril/Valsartan [Entresto 24 1 tab PO BID 08/16/23 05/29/24 History mg-26 mg Tablet] Spironolactone 25 mg PO DAILY 08/16/23 05/29/24 History Warfarin Sodium [Jantoven] 2.5 mg PO MOWEFR 08/16/23 05/29/24 History Warfarin Sodium [Jantoven] 5 mg PO SUTUTHSA 08/16/23 05/29/24 History carvediloL 0.5 tab PO BID-W/MEALS 08/16/23 05/29/24 History Aspirin EC [Ecotrin Low Dose] 81 mg PO DAILY 03/17/24 05/29/24 History Atorvastatin [Lipitor] 20 mg PO DAILY 03/17/24 05/29/24 History Magnesium Oxide [Magox 400] 400 mg PO DAILY #90 tablet 03/22/24 05/29/24 Rx Allergies Allergy/AdvReac Type Severity Reaction Status Date / Time No Known Allergies Allergy Verified 05/29/24 08:30 Physical Exam Vitals: Vital Signs Temp Pulse Pulse Resp BP BP Pulse Ox 05/30/24 08:00 16 05/30/24 07:00 98.2 F 85 16 100/59 95 05/30/24 02:00 99 F 49 L 16 96/61 94 L 05/29/24 20:00 48 L 16 103/64 98 05/29/24 18:41 88 107/68 96 05/29/24 17:33 88 112/79 98 05/29/24 16:33 61 103/64 99 05/29/24 16:03 97/54 05/29/24 15:33 97.9 F 83 17 101/67 97 05/29/24 14:46 69 16 100/64 93 L 05/29/24 14:31 73 16 98/62 94 L 05/29/24 14:16 70 16 100/62 95 05/29/24 14:01 65 16 100/59 92 L 05/29/24 13:46 96.9 F L 66 16 98/62 93 L Intake and Output 05/29/24 05/30/24 05/30/24 22:59 06:59 14:59 Intake Total 200 Balance 200 Intake: IV 200 Other: Voiding Method Urinal Urinal # Voids 1 2 Results 05/29/24 08:40 05/29/24 08:40 Coagulation 05/30/24 Range/Units 06:03 PT 23.3 H (10.0-12.5) sec Current Medications Generic Name Dose Route Start Last Admin Trade Name Freq PRN Reason Stop Dose Admin Acetaminophen 650 mg 05/29/24 14:47 Acetaminophen Tab 325 Mg Tab PO Q6HR PRN Mild Pain (Scale 1 to 3) Aspirin 81 mg 05/30/24 09:00 05/30/24 08:42 Aspirin 81 Mg PO 81 mg DAILY ROSSY Administration Atorvastatin Calcium 20 mg 05/30/24 09:00 05/30/24 08:43 Atorvastatin 20 Mg Tab PO 20 mg DAILY ROSSY Administration Carvedilol 6.25 mg 05/29/24 17:30 05/30/24 08:43 Carvedilol 6.25 Mg Tab PO 6.25 mg BID-W/MEALS ROSSY Administration Dapagliflozin 10 mg 05/30/24 09:00 05/30/24 08:42 Dapagliflozin Propanediol 10 Mg Tablet PO 10 mg DAILY ROSSY Administration Sodium Chloride 1,000 mls @ 20 mls/hr 05/29/24 06:48 05/30/24 08:42 Saline 0.9% IV 06/28/24 06:47 20 mls/hr .Q24H ROSSY Administration Magnesium Oxide 400 mg 05/30/24 09:00 05/30/24 08:42 Magnesium Oxide 400 Mg Tab PO 400 mg DAILY ROSSY Administration Miscellaneous Information 0 each 05/29/24 14:34 Warfarin Per Pharmacy MISCELLANE DIRECTED PRN PER PROTOCOL Sacubitril/Valsartan 1 each 05/29/24 21:00 05/30/24 08:42 Sacubitril/Valsartan 24 Mg-26 Mg Tablet PO 1 each BID ROSSY Administration Sodium Chloride 12 ml 05/29/24 14:47 Sodium Chloride 0.9% Flush 10 Ml Syringe IV Q12HR PRN Line Flush Spironolactone 25 mg 05/30/24 09:00 05/30/24 08:42 Spironolactone 25 Mg Tab PO 25 mg DAILY ROSSY Administration Warfarin Sodium 2.5 mg 05/30/24 18:00 Warfarin 2.5 Mg Tab PO [id number] [facility] Protocol Warfarin Sodium 5 mg 05/31/24 18:00 Warfarin 5 Mg Tab PO [id number] [facility] Protocol Intake and Output 05/29/24 05/30/24 05/30/24 22:59 06:59 14:59 Intake Total 200 Balance 200 Intake: IV 200 Other: Voiding Method Urinal Urinal # Voids 1 2 05/29/24 08:40 05/29/24 08:40
[2024-05-30] MEDS ORDERED: WARFARIN 2.5 MG TAB PO SCH (18:00)
[2024-05-31] MEDS ORDERED: WARFARIN 5 MG TAB PO SCH (18:00)
== END 2024-05-30 10:44 | disposition home or self-care (01) ==
LOC: CATHEP 08:23 → 6NMEDSUR 13:21 → CATHEP 05-30 10:44
PROVIDERS: ATTEND Internal Medicine Clinical Cardiac Electrophysiology
CPT/HCPCS: 80048; 85025; 85610; 86850; 86900; 86901; 92960; 93656; 93657

== ENCOUNTER → 2024-09-10 | Day surgery (SDC) | payer MEDICARE ==
[2024-09-09 08:56] VITALS: BMI 23.7
[~2024-09-10] MED LIST changes: +DAPAGLIFLOZIN PROPANEDIOL 10 MG TABLET PO SCH; +DRONEDARONE 400 MG TAB PO SCH; +LIDOCAINE 1% INJ 10MG/ML (20 ML MDV) ONE; +NON FORMULARY DRUG (Aspirin Ec 81 MG Tablet) PO SCH; +PHENYLEPHRINE-0.9% NACL SYG 1,000 MCG/10 ML SYRINGE ONE; +PROPOFOL 10 MG/ML 20 ML VIAL IV ONE; +SACUBITRIL/VALSARTAN 24 MG-26 MG TABLET PO SCH; +SPIRONOLACTONE 25 MG TAB PO SCH; +WARFARIN 2.5 MG TAB PO SCH; +WARFARIN 5 MG TAB PO SCH; +carvediloL 12.5 MG TAB PO SCH
[2024-09-10] MEDS: SODIUM CHLORIDE 0.9% 500 ML 500 ML IV ONE (06:30)
[2024-09-10 06:53] VITALS: TEMP 97.7
[2024-09-10 06:57] LABS: INR 2.7 (<1.2); Prothrombin Time 26.5 sec (10.0-12.5)
[2024-09-10 07:01] LABS: African American GFR (CKD) 56 (>60 ml/min/1.73 sqM); Anion Gap 8 mmol/L; Blood Urea Nitrogen 29 mg/dL (9-20); Calcium 9.3 mg/dL (8.4-10.2); Carbon Dioxide 20 mmol/L (22-30); Chloride 109 mmol/L (98-107); Glucose 100 mg/dL (74-99); Non-African American GFR(CKD) 49 (>60 ml/min/1.73 sqM); Sodium 137 mmol/L (137-145)
[2024-09-10] MEDS: BENZOCAINE SPRAY 1 EACH MM ONE (07:15)
--- NOTE | 2024-09-10 07:42 | P.PCN ---
Date of Procedure: 09/10/24 Description of Procedure: Indication: Atrial fibrillation Procedure Description: After explaining the procedure to the patient, it's risk and complications, blood pressure, heart rate and O2 saturation were monitored. The throat was sprayed with Cetacaine. Patient received sedation per anesthesia department . The probe was introduced into the esophagus without difficulty. Images were obtained. Following that, the probe was removed. There was no immediate complication. Findings: Left atrial size is severely dilated, right atrial size is dilated. There is left atrial appendage closure with no flow. The left ventricular systolic function is severely impaired with an ejection fraction of 15 to 20% with global hypokinesis. Evidence of mitral valve repair was noted with normal movement of the leaflets. Bioprosthetic aortic valve was noted. The descending thoracic aorta appears to be normal. No pericardial effusion was noted. Contrast bubble study revealed no shunting across the interatrial septum. Doppler: Pulse wave and color Doppler were obtained, and revealed mild to moderate mitral regurgitation with mild tricuspid regurgitation and no shunting across the interatrial septum. Conclusion: 1. Biatrial dilatation with closure of the left atrial appendage and no flow by color study 2. Dilated left ventricle with severe global hypokinesis 3. Mitral valve repair with mild to moderate mitral regurgitation 4. Bioprosthetic aortic valve with normal function 5. No shunting across the interatrial septum Cardioversion: After obtaining KAIDEN and sedated state a synchronized biphasic cardioversion using 150 J subsequently 200 J was successful in restoring sinus mechanism, there was no immediate complications.
[2024-09-10] MEDS: IV FLUID CONTINUATION 1,000 ML IV ONE (08:24)
[2024-09-10 09:27] VITALS: RESP 16
[2024-09-10 09:42] VITALS: BP 93/57; PULSE 60
== END | disposition home or self-care (01) ==
LOC: OR 06:02
PROVIDERS: ATTEND Internal Medicine Interventional Cardiology
DX: I08.1 Rheumatic disorders of both mitral and tricuspid valves (principal); I48.11 Longstanding persistent atrial fibrillation; I42.8 Other cardiomyopathies; I10 Essential (primary) hypertension; E78.2 Mixed hyperlipidemia; I71.20 Thoracic aortic aneurysm, without rupture, unspecified; Z79.899 Other long term (current) drug therapy; Z79.82 Long term (current) use of aspirin; Z95.3 Presence of xenogenic heart valve; Z98.890 Other specified postprocedural states; Z87.891 Personal history of nicotine dependence; Z95.2 Presence of prosthetic heart valve
CPT/HCPCS: 93312; 93320; 93325; 92960; 80048; 85610; J2003; J2704; J2371